=== PATIENT | female | born 1935 | race Hispanic/Latino ===

== ENCOUNTER 2016-12-20 11:27 | Observation (INO) | payer MEDICARE ==
[2016-12-20 11:33] VITALS: BMI 26.5
--- NOTE | 2016-12-20 12:10 | ED PDOC ---
Arrival/HPI - General Chief Complaint: Syncope Time Seen by Provider: 12/20/16 12:07 Historian: Patient - History of Present Illness Narrative History of Present Illness (Text): 12/20/16 12:08 81 year old female who denies past medical history presents to the emergency department after two possible syncopal episodes prior to arrival. Patient states she [place] the bus stop and was not feeling well and saw "black all around" and felt lightheaded before "passing out" for a few seconds, twice in total. Friend states the patient was already sitting down and did not fall down to the ground. Patient also complained of some shortness of breath before the episodes. She states a similar episode happened about 3 years ago. Currently patient denies any pain, change in appetite, vomiting, or diarrhea. PMD: Dr. Hilario He Time/Duration: Prior to Arrival Symptom Onset: Sudden Symptom Course: Unchanged Modifying Factors (Text): None Associated Symptoms (Text): None Past Medical History - Provider Review Nursing Documentation Reviewed: Yes - Past Medical History Past Medical History: No Previous - Pulmonary Hx Bronchitis: Yes (3 yrs ago) - Musculoskeletal/Rheumatological Hx Arthritis: Yes (back and knees) Hx Falls: No - Gastrointestinal Hx Gastrointestinal Disorders: Yes (gastritis) - Psychiatric Hx Depression: Yes (3 daughters alcoholics and one son in custodial) Hx Substance Use: No - Surgical History Hx Cholecystectomy: Yes (38 yrs ago) - Suicidal Assessment Feels Threatened In Home Enviroment: No Family/Social History - Physician Review Nursing Documentation Reviewed: Yes Family/Social History: Unknown Family HX Smoking Status: Never Smoked Hx Alcohol Use: No Hx Substance Use: No Hx Substance Use Treatment: No Allergies/Home Meds Allergies/Adverse Reactions: Allergies codeine Allergy (Verified 12/20/16 11:51) HEADACHE meperidine [From Demerol] Allergy (Verified 12/20/16 11:51) HEADACHE strawberry Allergy (Verified 12/20/16 11:51) RASH [place] Allergy (Uncoded 12/20/16 11:51) RASH flu vaccine Adverse Reaction (Mild, Uncoded 12/20/16 11:51) SHORTNESS OF BREATH Patient states she had an allergic reaction last time she received the flu vaccine. Home Medications: Home Meds Medication Instructions Recorded Confirmed No Known Home Med 10/09/12 12/20/16 Review of Systems - Physician Review All systems were reviewed & negative as marked: Yes - Review of Systems Eyes: Vision Changes ("black all around") Gastrointestinal: absent: Diarrhea, Vomiting, Appetite Changes Neurological: Other (Lightheadedness) Physical Exam - Physical Exam Narrative Physical Exam (Text): Constitutional: No acute distress. Head: Normocephalic. Atraumatic. Eyes: PERRL. ENT: Moist mucous membranes. Neck: Supple. Cardiovascular: Regular rate. Good pulses. Chest: No tenderness. Respiratory: Clear to auscultation bilaterally. GI: Soft. Nontender. Nondistended. Back: No CVA tenderness. Musculoskeletal: No tenderness or swelling of extremities. Skin: No rash. Neurologic: Alert, no focal deficit. Motor and sensory intact. Vital Signs Reviewed: Yes Vital Signs Temp Pulse Resp BP Pulse Ox 12/20/16 13:27 57 L 12 145/69 99 12/20/16 11:40 97.4 F L 57 L 18 118/75 100 Temperature: Afebrile Blood Pressure: Normal Pulse: Bradycardic Respiratory Rate: Normal Appearance: Positive for: Well-Appearing, Non-Toxic, Comfortable Pain Distress: None Mental Status: Positive for: Alert and Oriented X 3 Finger Stick Blood Glucose: 115 Medical Decision Making ED Course and Treatment: Impression: 81 year old female who denies past medical history presents to the emergency department after two possible syncopal episodes prior to arrival. Differential Diagnosis included but are not limited to: Vasovagal syncope vs dehydration vs arrhythmia Plan: -- Chest X-ray -- Labs -- Reassess and disposition Prior Visits: Notes and results from previous visits were reviewed. Patient last seen in the ED on 10/09/12 for syncope and admitted for syncope. Progress Notes: Chest X-ray Railway Signal Operator: Ronaldo Arita MD IMPRESSION: No active disease EKG shows sinus rhythm at 58 BPM, no ST/T wave changes, interpreted by me. CT Head Railway Signal Operator: Ronaldo Arita MD IMPRESSION: No acute findings. 12/20/16 13:20 Although patient described her symptoms prior to syncope as lightheadedness, she then began saying that it is more of an unsteadiness when her symptoms were reproducible during the taking of orthostatic vital signs. Due to this change, I activated CODE STROKE as this is a possible neurological deficit as opposed to the prior symptom of lightheadedness. Patient with ataxia on FTN with R arm. Otherwise, HTS and LUCAS normal. Unable to stand without support and much worsening balance with eyes closed. I discussed the case with Dr. Abraham who recommends against tPA and suggests that this may be vertebrobasilar insufficiency. 12/20/16 14:44 Dr. He accepts patient to his service with Dr. Abraham on consult. - Lab Interpretations Lab Results: 12/20/16 11:40 12/20/16 11:40 Lab Results 12/20/16 11:40: WBC 5.9 D, RBC 4.58, Hgb 12.9, Hct 38.5, MCV 84.1, MCH 28.2, MCHC 33.5, RDW 14.2, Plt Count 293, MPV 9.9, Gran % 56.4, Lymph % (Auto) 34.2, Nicholas % (Auto) 7.9 H, Eos % (Auto) 0.7 L, Baso % (Auto) 0.8, Gran # 3.35, Lymph # 2.0, Nicholas # 0.5, Eos # 0.0, Baso # 0.05 12/20/16 11:40: Sodium 136, Potassium 4.1, Chloride 102, Carbon Dioxide 27, Anion Gap 11, BUN 16, Creatinine 1.0, Est GFR ( Amer) > 60, Est GFR (Non- Af Amer) 53, Random Glucose 118 H, Calcium 9.3, Total Bilirubin 0.4, AST 26, ALT 27, Alkaline Phosphatase 78, Total Creatine Kinase 69, Troponin I < 0.01, NT -Pro-B Natriuret Pep 463 H, Total Protein 7.2, Albumin 4.1, Globulin 3.1, Albumin/Globulin Ratio 1.3 - RAD Interpretation Radiology Orders: 12/20/16 12:08 CHEST PORTABLE [RAD] Stat 12/20/16 13:21 HEAD W/O (CODE STROKE) [CT] Stat Bindery Technician: Radiologist - EKG Interpretation Interpreted by ED Physician: Yes Type: 12 lead EKG - Medication Orders Current Medication Orders: Discontinued Medications Aspirin (Aspirin) 325 mg PO STAT STA Stop: 12/20/16 14:41 NIHSS Scale ([place]) Time Performed: 13:20 - How Severe is the Stoke Baseline Level of Consciousness: 0=Alert LOC to Questions: 0=Both comments correct LOC to commands: 0=Obeys both correctly Best Gaze: 0=Normal Visual: 0=No visual loss Facial: 0=Normal Motor Arm - Left: 0=No drift Motor Arm - Right: 0=No drift Motor Leg - Left: 0=No drift Motor Leg - Right: 0=No drift Limb Ataxia: 1=Present Upper or Lower Sensory: 0=Normal Best Language: 0=No aphasia Dysarthia: 0=Normal articulation Extinction & Inattention (Neglect): 0=Normal, no object Score: 1 Risk Level: Minor Stroke Risk rTPA Inclusion/Exclusion - Refusal of Treatment Patient Refused Treatment: No - Inclusion Criteria for Altepase Patient is 18 years or Older: Yes The Clinical Diagnosis of Ischemic Stroke That is Causing a Potentially Disabling Neurological Deficit: No Time of Onset is Well Established to be Less Than 270 Minute Before Treatment Would Begin: Yes Risk/Benefit Discussed With Patient/Family Member Present: Yes - Warning to TPA With Conditions Condition: Age Greater Than 75 years - Scribe Statement The provider has reviewed the documentation as recorded by the Patricio Dawkins Provider Scribe Attestation: All medical record entries made by the Patricio were at my direction and personally dictated by me. I have reviewed the chart and agree that the record accurately reflects my personal performance of the history, physical exam, medical decision making, and the department course for this patient. I have also personally directed, reviewed, and agree with the discharge instructions and disposition. Disposition/Present on Arrival - Present on Arrival Any Indicators Present on Arrival: No History of DVT/PE: No History of Uncontrolled Diabetes: No Urinary Catheter: No History of Decub. Ulcer: No History Surgical Site Infection Following: None - Disposition Have Diagnosis and Disposition been Completed?: Yes Diagnosis: Ataxia, Decreased ambulation status, Syncope Disposition: HOSPITALIZED Disposition Time: 14:05 Patient Plan: Admission, Telemetry Condition: GUARDED Referrals: Hilario He MD [Primary Care Provider] - Follow up with primary
[2016-12-20 12:21] LABS: ADD MANUAL DIFF? NO
[2016-12-20 12:25] LABS: BASO # 0.05 K/mm3 (0.0-2.0); BASO % 0.8 % (0.0-3.0); EOS % 0.7 % (1.5-5.0); GRAN # 3.35 (1.4-6.5); GRAN % 56.4 % (50.0-68.0); HEMATOCRIT 38.5 % (36.0-48.0); LYMPH % 34.2 % (22.0-35.0); MEAN CELL VOLUME 84.1 fL (80.0-105.0); MEAN CORPUSCULAR HEMOGLOBIN 28.2 pg (25.0-35.0); MEAN CORPUSCULAR HGB CONC 33.5 g/dl (31.0-37.0); MEAN PLATELET VOLUME 9.9 fl (7.0-11.0); MONO # 0.5 (0.1-0.6); MONO % 7.9 % (1.0-6.0); PLATELET COUNT 293 10^3/uL (120.0-450.0); RED CELL DISTRIBUTION WIDTH 14.2 % (11.5-14.5); WHITE BLOOD COUNT 5.9 10^3/ul (4.5-11.0)
--- NOTE | 2016-12-20 12:35 | RAD ---
HISTORY: syncope COMPARISON: 06/17/2014 FINDINGS: LUNGS: No active pulmonary disease. PLEURA: No significant pleural effusion identified, no pneumothorax apparent. CARDIOVASCULAR: Normal. OSSEOUS STRUCTURES: No significant abnormalities. VISUALIZED UPPER ABDOMEN: Normal. OTHER FINDINGS: None. IMPRESSION: No active disease.
[2016-12-20 12:36] LABS: ALB/GLOB RATIO 1.3 (1.1-1.8); ALKALINE PHOSPHATASE 78 U/L (38-133); ALT/SGPT 27 U/L (7-56); AST/SGOT 26 U/L (15-39); BILIRUBIN,TOTAL 0.4 mg/dL (0.2-1.3); BLOOD UREA NITROGEN 16 mg/dL (7-21); CALCIUM 9.3 mg/dL (8.4-10.5); CARBON DIOXIDE 27 mmol/L (21-33); CHLORIDE 102 mmol/L (98-107); GFR AFRICAN-AMERICAN > 60; GLUCOSE,RANDOM 118 mg/dL (70-110); POTASSIUM 4.1 mmol/L (3.6-5.0); SODIUM 136 mmol/L (132-148); TOTAL PROTEIN 7.2 g/dL (5.8-8.3)
[2016-12-20 12:51] LABS: TROPONIN I < 0.01 ng/mL
--- NOTE | 2016-12-20 14:06 | CT ---
PROCEDURE: CT HEAD WITHOUT CONTRAST. HISTORY: unsteadiness COMPARISON: 10/09/2012 TECHNIQUE: Axial computed tomography images were obtained through the head/brain without intravenous contrast. Radiation dose: Total exam DLP = 689 mGy-cm. This CT exam was performed using one or more of the following dose reduction techniques: Automated exposure control, adjustment of the mA and/or kV according to patient size, and/or use of iterative reconstruction technique. FINDINGS: HEMORRHAGE: No intracranial hemorrhage. BRAIN: No mass effect or edema. Chronic microvascular changes are seen in the periventricular white matter. There is mild atrophy. There are no acute changes VENTRICLES: Unremarkable. No hydrocephalus. CALVARIUM: Unremarkable. PARANASAL SINUSES: Unremarkable as visualized. No significant inflammatory changes. MASTOID AIR CELLS: Unremarkable as visualized. No inflammatory changes. OTHER FINDINGS: None. IMPRESSION: No acute findings
--- NOTE | 2016-12-20 15:14 | CARD ---
APPROVED REPORT EKG Measurement Heart [id number] <Conclusion> Sinus bradycardia Otherwise normal ECG
--- NOTE | 2016-12-20 18:27 | CON ---
DATE: 12/20/2016 CHIEF COMPLAINT: Syncope. HISTORY OF PRESENT ILLNESS: This is a 81-year-old woman with a past medical history of bronchitis, g astritis, depression in the past, with a history of cholecystectomy and arthritis who is otherwise ac tive for her age and does Wing, was at [employer] when she was getting her bags and was waiting at the bus stand, she did not feel well, felt like generally weak and lightheaded and felt like she was goi ng to pass out, she saw black all around and had passed out twice for a few seconds. No seizure-like activity. She said she did not eat anything all morning and felt lightheaded, but no vertigo, no sp inning sensation of the room. Currently, at bedside, she is able to walk steady and there is no kimberley r or focal weakness of the extremities. Her electrolytes were unremarkable. She had some mild short ness of breath, otherwise currently no further syncopal episodes. I have ordered a carotid Doppler, a CAT scan showed no acute intracranial abnormality. There is some mild atrophy. PAST MEDICAL HISTORY: History of depression, history of cholecystectomy, history of arthritis. REVIEW OF SYSTEMS: A 14-point review of systems is negative except for the HPI. SOCIAL HISTORY: No illicit drug use, smoking or ETOH use. ALLERGIES: CODEINE, MEPERIDINE, STRAWBERRY, FLU VACCINE. FAMILY HISTORY: Noncontributory. CURRENT MEDICATIONS: Reviewed via nurse reconciliation sheet. PHYSICAL EXAMINATION: VITAL SIGNS: Temperature 97.4, pulse rate 60, blood pressure 157/81, respiratory rate of 18, oxygen saturation 99% on room air. GENERAL: The patient is sitting up in bed in no acute distress. HEENT: Atraumatic, normocephalic. PERRLA. Extraocular muscles intact. NECK: Supple, no JVD, no adenopathy noted. LUNGS: Clear to auscultation. No adventitious sounds. HEART: S1, S2, normal rate and rhythm. No murmurs, rubs, or gallops. ABDOMEN: Soft, nontender and nondistended. Bowel sounds are present. EXTREMITIES: No clubbing, no cyanosis. Peripheral pulses 2+ felt bilaterally. NEUROLOGIC: The patient is alert, oriented to person, place, month and year. Speech fluent without any errors. Cranial nerves II through XII are intact. MOTOR: Moves all extremities equally. Strength is 5/5 in both upper and lower extremities, no prona tor drift seen. SENSORY: Light touch, pinprick, proprioception, and vibrations intact. DTRs 2+ throughout and 1 at the ankles. COORDINATION: [id number] intact. GAIT: Slightly wide based, but Romberg is negative and she was able walk to the bathroom. LABORATORY DATA: Sodium 136, potassium 4.1, chloride of 102, carbon dioxide 27, BUN of 16, creatinin e of 1. Random glucose of 118. ASSESSMENT AND PLAN: This is a 81-year-old woman with history of arthritis, cholecystectomy, history of depression who had a syncopal episode today while at the bus stand for a few seconds. She did no t eat much food today or breakfast and also did not hydrate at all throughout the day. Her vital sig ns were stable. There is no focal weakness on extremities. She had a gait imbalance after a syncopa l event. There is a possibility her transient symptoms could be slightly vasovagal versus vertebroba silar insufficiency. Currently, her neuro exam is nonfocal. AT THIS TIME, RECOMMEND: 1. Carotid Doppler to assess for carotid disease. 2. Get orthostatic vital signs. 3. Keep her on aspirin 81 mg p.o. daily for stroke prevention. 4. Continue with current present medical management. She is clinically stable from my standpoint. Brandon Abraham MD cc: [id number] TT: 12/20/2016 18:26:43 Confirmation # [id number] Dictation # [id number] nannette
[2016-12-20] MEDS ORDERED: Pneumococcal 23-Valent Vaccine IM ONE (21:53)
[2016-12-21 00:56] LABS: URINE BILIRUBIN NEGATIVE (NEGATIVE); URINE BLOOD TRACE-LYSED (NEGATIVE); URINE GLUCOSE (UA) NEGATIVE (NEGATIVE); URINE KETONE NEGATIVE (NEGATIVE); URINE LEUKOCYTE ESTERASE NEGATIVE Leu/uL (NEGATIVE); URINE PROTEIN NEGATIVE mg/dL (<30 mg/dL); URINE UROBILINOGEN 0.2 E.U./dL (<1 E.U./dL)
[2016-12-21 01:05] LABS: URINE APPEARANCE CLEAR (CLEAR); URINE COLOR YELLOW (YELLOW)
[2016-12-21 01:59] LABS: URINE BACTERIA FEW (NEG); URINE EPITHELIAL CELLS 0 - 2 /hpf (0-5); URINE WBC 0 - 2 /hpf (0-6)
[2016-12-21 12:24] VITALS: O2SAT 97
--- NOTE | 2016-12-21 14:18 | PN ---
DATE: 12/21/2016 CHIEF COMPLAINT: Follow up for syncope. SUBJECTIVE: The patient seen and examined at bedside. No longer having syncopal episodes. Found to have positive orthostatic changes. No focal weakness in the extremities. No acute events overnight . PAST MEDICAL HISTORY: Depression, cholecystectomy, history of arthritis. REVIEW OF SYSTEMS: A 14-point review of systems is negative except for the HPI. SOCIAL HISTORY: No illicit drug use, smoking, or ETOH abuse. ALLERGIES: ALLERGIC TO CODEINE, MEPERIDINE, STRAWBERRIES AND FLU VACCINE. FAMILY HISTORY: Noncontributory. CURRENT MEDICATIONS: Reviewed via nurse's reconciliation sheet. PHYSICAL EXAMINATION: VITAL SIGNS: Temperature 98, pulse rate 50, blood pressure 132/ , respiratory rate 16, oxygen sa turation 97% on room air. GENERAL: The patient is sitting up in bed in no acute distress. HEENT: Atraumatic, normocephalic. PERRLA. Extraocular muscles intact. NECK: Supple, no JVD, no adenopathy noted. LUNGS: Clear to auscultation. No adventitious sounds. HEART: S1, S2, normal rate and rhythm. No murmurs, rubs, or gallops. ABDOMEN: Soft, nontender, nondistended. Bowel sounds are present. EXTREMITIES: No clubbing, no cyanosis. Peripheral pulses 2+ felt bilaterally. NEUROLOGIC: The patient is alert, oriented to person, place, month and year. Speech is fluent, with out any errors. Cranial nerves II through XII are intact. MOTOR: Moves all extremities equally. No pronator drift seen. SENSORY: Light touch, pinprick, proprioception, vibration intact. DTRs are 2+ throughout and 1 at t he ankles. COORDINATION: Tpvyid-tv-rkmj intact. GAIT: Slightly wide-based. Romberg negative. LABORATORY DATA: No new labs were done overnight. Carotid Doppler is currently pending. ASSESSMENT AND PLAN: A 81-year-old woman with history of arthritis, history of depression who had a syncopal episode while at the bus stop for a few seconds. Did not hydrate that much that day. Her sy ncopal episode was likely vasovagal with orthostatic phenomenon, which she has positive orthostatic c hanges. At this time, recommend compression stockings at home as well as hydration throughout the da y. Will defer any use of midodrine to the PMD if needed and continue with aspirin 81 mg p.o. daily f or stroke prevention. She is clinically stable from my standpoint. Will sign off. Brandon Abraham MD cc: [id number] TT: 12/21/2016 14:17:52 Confirmation # [id number] Dictation # [id number] jean
--- NOTE | 2016-12-21 14:25 | US ---
PROCEDURE: Bilateral carotid artery duplex ultrasound HISTORY: Carotid stenosis PHYSICIAN(S): Giovani Bender MD. TECHNIQUE: Duplex sonography and color-flow Doppler were used to evaluate the carotid bifurcations and limited segments of the vertebral arteries bilaterally. FINDINGS: There is mild smooth heterogeneous plaque noted at the carotid bifurcations bilaterally. The peak systolic velocity in the proximal right internal carotid artery is 64 cm/sec. This corresponds to a 20 to 39% proximal right ICA stenosis. Normal systolic velocities are noted in the proximal right external carotid artery. There is antegrade flow in the right vertebral artery. The peak systolic velocity in the proximal left internal carotid artery is 68 cm/sec. This corresponds to a 20 to 39% proximal left ICA stenosis. Normal systolic velocities are noted in the proximal left external carotid artery. There is antegrade flow in the left vertebral artery. IMPRESSION: 1. Bilateral 20-39% proximal ICA stenoses. 2. Antegrade flow in both vertebral arteries.
--- NOTE | 2016-12-21 18:53 | HP ---
HISTORY OF PRESENT ILLNESS: The patient is a 81-year-old female who is currently on telemetry in [place] [address], bed 2. She initially had a witnessed syncopal episode by the [employer] in [place]. She has no complaints. She had no symptoms prior to the syncopal episode. The syncopal episode happened while the patient was standing and walking. PAST MEDICAL HISTORY: Essentially unremarkable. ALLERGIES: CODEINE, MEPERIDINE, WHICH PRODUCE HEADACHES. FAMILY HISTORY: Unremarkable. SOCIAL HISTORY: She does not smoke as far social history and is a social drinker who drinks some win e. REVIEW OF SYSTEMS: Currently, unremarkable. The patient is asymptomatic. Denies any neurologic sym ptoms including dizziness or lightheadedness. PHYSICAL EXAMINATION: VITAL SIGNS: Pulse rate of 58, blood pressure 132/73. Her lying blood pressure was 171/71, it dropp ed to 135/68 upon sitting, and 125/73 when standing. Respiratory rate 18, O2 saturation of 97% on ro om air. HEENT: PERRLA, EOMI. There is no icterus. NECK: Supple with a full range of motion. No bruits are present. LUNGS: Clear bilaterally. HEART: Shows a regular rate and rhythm with occasional extra systole. No murmurs or rubs are apprec iated. ABDOMEN: Soft, it is nontender. Bowel sounds are normoactive. NEUROLOGIC: The patient is intact. LABORATORY VALUES: Hemoglobin and hematocrit are 12.9 and 38.5. Chemistry with the exception of a r andom glucose of 118. Chest x-ray is unremarkable. Electrocardiogram: Sinus bradycardia, otherwise normal electrocardiogram. CT of the head: No intracranial hemorrhage and the impression was no acu te findings. Dr. Abraham saw the patient who determined that this was either vasovagal versus vertebral basal insuf ficiency. IMPRESSION AT THIS TIME: Syncope. We will continue aspirin 325 mg and a carotid ultrasound is pending. Hilario He MD cc: [id number] TT: 12/21/2016 18:53:00 nannette
[2016-12-22 07:51] LABS: ADD MANUAL DIFF? NO
[2016-12-22 08:02] LABS: BASO # 0.03 K/mm3 (0.0-2.0); BASO % 0.7 % (0.0-3.0); EOS # 0.1 (0.0-0.7); EOS % 1.7 % (1.5-5.0); GRAN # 2.33 (1.4-6.5); GRAN % 57.7 % (50.0-68.0); LYMPH # 1.2 (1.2-3.4); MEAN CORPUSCULAR HEMOGLOBIN 27.4 pg (25.0-35.0); MEAN PLATELET VOLUME 9.9 fl (7.0-11.0); MONO # 0.4 (0.1-0.6); MONO % 10.9 % (1.0-6.0); PLATELET COUNT 275 10^3/uL (120.0-450.0); RED CELL DISTRIBUTION WIDTH 14.1 % (11.5-14.5)
[2016-12-22 08:13] LABS: ALB/GLOB RATIO 1.2 (1.1-1.8); ALKALINE PHOSPHATASE 65 U/L (38-133); ALT/SGPT 24 U/L (7-56); AST/SGOT 25 U/L (15-39); BILIRUBIN,TOTAL 0.6 mg/dL (0.2-1.3); BLOOD UREA NITROGEN 12 mg/dL (7-21); CALCIUM 9.1 mg/dL (8.4-10.5); CARBON DIOXIDE 28 mmol/L (21-33); CHLORIDE 100 mmol/L (98-107); CHOLESTEROL 269 mg/dL (130-200); GFR AFRICAN-AMERICAN > 60; GLUCOSE,RANDOM 82 mg/dL (70-110); POTASSIUM 3.8 mmol/L (3.6-5.0); SODIUM 135 mmol/L (132-148); TOTAL PROTEIN 7.1 g/dL (5.8-8.3)
[2016-12-22 11:17] VITALS: BP 138/80; PULSE 57; RESP 16; TEMP 97
--- NOTE | 2016-12-24 08:16 | DS ---
The patient currently in room 270, bed 2. The patient is a 81-year-old female with no significant past medical history, who had a syncopal epis ode by [facility] in [place]. She has no previous history of syncope or any neurologic disorders . REVIEW OF SYSTEMS: Currently is unremarkable. PHYSICAL EXAMINATION: VITAL SIGNS: Temperature is 97 degrees, pulse rate of 57, blood pressure 138/80, respiratory rate of 16 with 98% saturation on room air. HEENT: PERRLA, EOMI. NECK: Supple. No bruits or adenopathy are present. LUNGS: Clear to auscultation and percussion bilaterally. HEART: Regular rate and rhythm. No murmurs, rubs, or gallops. ABDOMEN: Soft. It is nontender. No organomegaly. EXTREMITIES: Show no deformities or edema. NEUROLOGIC: There are no focal motor deficits. LABORATORY DATA: WBCs are 4.0. Chemistry is unremarkable with the exception of a cholesterol of 269 with an LDL of 182. The patient was seen by Dr. Abraham who agrees with the discharge and push fluid s. She will be discharged today . CURRENT DIAGNOSES: Vasovagal syncope and hyperlipidemia. PLAN: The patient will be discharged on Lipitor 40 mg daily and ASA 81 mg p.o. daily. Hilario He MD cc: [id number] TT: 12/22/2016 23:14:48 va
== END 2016-12-22 14:04 | disposition home or self-care (01) ==
LOC: ED 11:27 → ERH 14:42 → INTOOBSV 14:42 → ERH 15:59 → 2RSO 17:00
PROVIDERS: ADMIT Internal Medicine; ATTEND Internal Medicine
DX: R55 Syncope and collapse (principal); R27.0 Ataxia, unspecified; F32.9 Major depressive disorder, single episode, unspecified; E78.5 Hyperlipidemia, unspecified; M19.90 Unspecified osteoarthritis, unspecified site; K29.70 Gastritis, unspecified, without bleeding; J40 Bronchitis, not specified as acute or chronic
CPT/HCPCS: 36415; 70450; 71010; 80053; 80061; 81001; 82550; 83880; 84484; 85025; 93005; 93880; 99285; G0378

== ENCOUNTER 2018-09-03 01:28 | Emergency (ER) | payer MEDICARE ==
[2018-09-03 01:28] VITALS: BMI 26.5
[2018-09-03] MEDS ORDERED: Sodium Chloride 0.9% 1,000 ML IV STA ×2 (01:51→06:03)
--- NOTE | 2018-09-03 02:30 | ED PDOC ---
Arrival/HPI - General Chief Complaint: Flu-like Symptoms Time Seen by Provider: 09/03/18 01:34 Historian: Patient - History of Present Illness Narrative History of Present Illness (Text): 09/03/18 01:34 Chapis Chen is a 82 year old female, with a past medical history of cholecystectomy, gastritis, and depression, who presents to the emergency department with complaints of abdominal pain. Patient states she has been experiencing diffuse abdominal cramping, described as gas-like, nausea, bilious vomiting, and diarrhea since this afternoon. Patient states she took Gas-X and Tums with minimal improvement. Patient denies any fevers, chills, headache, dizziness, cough, or any other complaint. PMD: Dr. Thad He Time/Duration: 4-6 hours (this afternoon) Symptom Onset: Gradual Quality: Cramping Activities at Onset: Light Context: Home Past Medical History - Provider Review Nursing Documentation Reviewed: Yes - Infectious Disease Hx of Infectious Diseases: None - Past Medical History Past Medical History: No Previous - Cardiac Hx Cardiac Disorders: No - Pulmonary Hx Respiratory Disorders: Yes Hx Bronchitis: Yes (3 yrs ago) - Neurological Hx Neurological Disorder: Yes Hx Dizziness: Yes (SYNCOPE 09-29-12,12-20-16) - HEENT Hx HEENT Disorder: Yes Hx Cataracts: Yes (BILATERAL SX) - Renal Hx Renal Disorder: No - Endocrine/Metabolic Hx Endocrine Disorders: No - Hematological/Oncological Hx Blood Disorders: No - Integumentary Hx Dermatological Disorder: Yes (TATTOOS) - Musculoskeletal/Rheumatological Hx Musculoskeletal Disorders: Yes Hx Arthritis: Yes (back and knees) Hx Falls: Yes - Gastrointestinal Hx Gastrointestinal Disorders: Yes (gastritis) Hx Gall Bladder Disease: Yes (CHOLECYSTECTOMY) - Genitourinary/Gynecological Hx Genitourinary Disorders: No - Psychiatric Hx Psychophysiologic Disorder: Yes Hx Depression: Yes (3 daughters alcoholics and one son in shelter) Hx Substance Use: No - Surgical History Hx Cholecystectomy: Yes (38 yrs ago) - Suicidal Assessment Feels Threatened In Home Enviroment: No Family/Social History - Physician Review Nursing Documentation Reviewed: Yes Family/Social History: Unknown Family HX Smoking Status: Never Smoked Hx Alcohol Use: Yes (SOCIALLY DRINKS WINE) Hx Substance Use: No Hx Substance Use Treatment: No Allergies/Home Meds Allergies/Adverse Reactions: Allergies codeine Allergy (Verified 12/20/16 20:14) HEADACHE meperidine [From Demerol] Allergy (Verified 12/20/16 20:14) HEADACHE strawberry Allergy (Verified 12/20/16 20:14) RASH CANTALOUPE Allergy (Uncoded 12/20/16 20:14) RASH flu vaccine Adverse Reaction (Mild, Uncoded 12/20/16 20:14) SHORTNESS OF BREATH Patient states she had an allergic reaction last time she received the flu vaccine. Home Medications: Home Meds Medication Instructions Recorded Confirmed Aspirin [Lo-Dose Aspirin EC] 81 mg PO DAILY 12/22/16 12/22/16 Lipitor 40 mg PO DAILY 12/22/16 12/22/16 Review of Systems - Physician Review All systems were reviewed & negative as marked: Yes - Review of Systems Constitutional: absent: Fevers, Night Sweats Respiratory: absent: SOB, Cough Cardiovascular: absent: Chest Pain Gastrointestinal: Abdominal Pain, Diarrhea, Nausea, Vomiting, Hematochezia Genitourinary Female: absent: Dysuria Musculoskeletal: absent: Back Pain, Neck Pain Neurological: absent: Headache, Dizziness Physical Exam Vital Signs Reviewed: Yes Temperature: Afebrile Blood Pressure: Normal Pulse: Regular Respiratory Rate: Normal Appearance: Positive for: Well-Appearing, Non-Toxic, Comfortable Pain Distress: None Mental Status: Positive for: Alert and Oriented X 3 - Systems Exam Head: Present: Atraumatic, Normocephalic Pupils: Present: PERRL Extroacular Muscles: Present: EOMI Conjunctiva: Present: Normal Mouth: No: Moist Mucous Membranes (Dry mucous membranes ) Neck: Present: Normal Range of Motion Respiratory/Chest: Present: Clear to Auscultation, Good Air Exchange. No: Respiratory Distress, Accessory Muscle Use Cardiovascular: Present: Regular Rate and Rhythm, Normal S1, S2. No: Murmurs Abdomen: No: Tenderness, Distention, Peritoneal Signs Back: Present: Normal Inspection Upper Extremity: Present: Normal Inspection. No: Cyanosis, Edema Lower Extremity: Present: Normal Inspection. No: Edema Neurological: Present: GCS=15, CN II-XII Intact, Speech Normal Skin: Present: Warm, Dry, Normal Color. No: Rashes Psychiatric: Present: Alert, Oriented x 3, Normal Insight, Normal Concentration Medical Decision Making ED Course and Treatment: 09/03/18 01:34 Impression: Patient is an 82 year old male who presents to the emergency department with nausea, vomiting, abdominal pain, and diarrhea. Plan: -- EKG -- Labs -- Chest X-Ray -- Pepcid -- IV Fluids -- Zofran -- Reassess and disposition Prior Visits: Notes and results from previous visits were reviewed. Progress Notes: Reviewed EKG, NSR at 81 bpm. Non-specific ST/T wave changes. 09/03/18 05:34 Reviewed radiology, Chest X-ray shows no acute processes. CT Abdomen and Pelvis: Bilateral basilar atelectatic pulmonary changes. Moderate sliding hiatal hernia. Cholecystectomy. Bilateral perinephric fat stranding. Moderate amount of fecal residue in the large bowels. The liver is of uniform attenuation without mass or defect. There is no intra or extrahepatic biliary ductal dilatation. The spleen is normal. The pancreas is of normal contour and attenuation characteristics. There is no evidence of adrenal mass. Both kidneys demonstrate prompt and equal nephrograms. The kidneys are normal in size, shape and configuration. There is no evidence of renal or ureteral mass. No renal or ureteral calculi are identified. There is no hydroureter or hydronephrosis. No evidence for appendicitis. There is no bowel wall thickening. No evidence for small or large bowel obstruction. There is no evidence of abdominal ascites or lymphadenopathy. There is no evidence of intrinsic or extrinsic bladder mass. There is no pelvic ascites or lymphadenopathy. Images of the lung bases show no evidence of pleural or parenchymal mass. There are no pleural effusions. The bony structures are free of lytic or blastic lesions. IMPRESSION: Bilateral basilar atelectatic pulmonary changes. Moderate sliding hiatal hernia. Cholecystectomy. Bilateral perinephric fat stranding. Moderate amount of fecal residue in the large bowels. No evidence of acute abdominal or pelvic pathology. Electronically signed on Sep 03, 2018 5:00:53 AM EST by: Nic Lin M.D., Certified by ABR, MSK, Neuroradiology 09/03/18 05:[address] Thad He, who is aware and agrees with plan. Accepts pt in to his service. Pt will go to [facility] observation fro gastroenteritis, intractable vomiting, and leukocytosis. - Lab Interpretations I have reviewed the lab results: Yes - RAD Interpretation Radiology Orders: 09/03/18 01:49 CHEST PORTABLE [RAD] Stat Manager Chinese: ED Physician, Radiologist - EKG Interpretation Interpreted by ED Physician: Yes Type: 12 lead EKG - Medication Orders Current Medication Orders: Sodium Chloride (Sodium Chloride 0.9%) 1,000 mls @ 999 mls/hr IV .Q1H1M STA Stop: 09/03/18 02:51 Discontinued Medications Famotidine (Pepcid) 20 mg IVP STAT STA Stop: 09/03/18 01:52 Ondansetron HCl (Zofran Inj) 4 mg IVP ONCE ONE Stop: 09/03/18 01:52 - Scribe Statement The provider has reviewed the documentation as recorded by the Patricio guo with [place] All medical record entries made by the Scribe were at my direction and personally dictated by me. I have reviewed the chart and agree that the record accurately reflects my personal performance of the history, physical exam, medical decision making, and the department course for this patient. I have also personally directed, reviewed, and agree with the discharge instructions and disposition. Disposition/Present on Arrival - Present on Arrival Any Indicators Present on Arrival: No History of DVT/PE: No History of Uncontrolled Diabetes: No Urinary Catheter: No History of Decub. Ulcer: No History Surgical Site Infection Following: None - Disposition Have Diagnosis and Disposition been Completed?: Yes Diagnosis: Gastroenteritis, Intractable vomiting, Leukocytosis, Hypokalemia Disposition: HOSPITALIZED Disposition Time: 06:06 Condition: STABLE Referrals: Ying MORALES,Charles Georeg MD [Primary Care Provider] - Follow up with primary Forms: [employer] (Swedish)
[2018-09-03 02:33] LABS: HEMOGLOBIN 8.8 g/dL (12.0-16.0); MEAN CELL VOLUME 64.9 fl (80.0-105.0); MEAN CORPUSCULAR HEMOGLOBIN 19.3 pg (25.0-35.0); MEAN CORPUSCULAR HGB CONC 29.7 g/dl (31.0-37.0); MEAN PLATELET VOLUME 9.2 fl (7.0-11.0); RBC 4.56 10^6/uL (3.5-6.1); RED CELL DISTRIBUTION WIDTH 19.9 % (11.5-14.5); WHITE BLOOD COUNT 17.8 10^3/uL (4.5-11.0)
[2018-09-03 02:44] LABS: ALB/GLOB RATIO 1.3 (1.1-1.8)
[2018-09-03 02:59] LABS: ALBUMIN 4.2 g/dL (3.0-4.8); ALT/SGPT 10 U/L (7-56); AST/SGOT 39 U/L (14-36); BLOOD UREA NITROGEN 14 mg/dL (7-21); CALCIUM 9.5 mg/dL (8.4-10.5); GFR NON-AFRICAN AMERICAN > 60; LIPASE 49 U/L (23-300)
[2018-09-03] MEDS ORDERED: Potassium Chloride 20 mEq ER Tab PO STA (03:11)
[2018-09-03 06:58] LABS: URINE BILIRUBIN NEGATIVE (NEGATIVE); URINE BLOOD TRACE-LYSED (NEGATIVE); URINE GLUCOSE (UA) NEGATIVE (NEGATIVE); URINE LEUKOCYTE ESTERASE NEGATIVE Leu/uL (NEGATIVE); URINE PROTEIN NEGATIVE mg/dL (<30 mg/dL); URINE UROBILINOGEN 0.2 E.U./dL (<1 E.U./dL)
[2018-09-03 07:00] VITALS: O2SAT 98
[2018-09-03 07:02] LABS: URINE APPEARANCE CLEAR (CLEAR); URINE COLOR YELLOW (YELLOW)
[2018-09-03 07:04] LABS: URINE BACTERIA RARE /hpf; URINE RBC 0 - 2 /hpf (0-2)
--- NOTE | 2018-09-03 08:52 | CT ---
Date of service: 09/03/2018 PROCEDURE: CT Abdomen and Pelvis without intravenous contrast HISTORY: pain COMPARISON: None. TECHNIQUE: Without contrast.. Contrast dose: Radiation dose: Total exam DLP = 582.4 mGy-cm. This CT exam was performed using one or more of the following dose reduction techniques: Automated exposure control, adjustment of the mA and/or kV according to patient size, and/or use of iterative reconstruction technique. FINDINGS: LOWER THORAX: Unremarkable. LIVER: Unremarkable. No gross lesion or ductal dilatation. GALLBLADDER AND BILE DUCTS: Unremarkable. PANCREAS: Unremarkable. No gross lesion or ductal dilatation. SPLEEN: Unremarkable. ADRENALS: Unremarkable. No mass. KIDNEYS AND URETERS: Unremarkable. No hydronephrosis. No solid mass. Mild perinephric stranding, probably chronic VASCULATURE: Unremarkable. No aortic aneurysm. Minimal aortic calcification BOWEL: Unremarkable. No obstruction. No gross mural thickening. Mild constipation APPENDIX: Unremarkable. Normal appendix. PERITONEUM: Unremarkable. No free fluid. No free air. LYMPH NODES: Unremarkable. No enlarged lymph nodes. BLADDER: Unremarkable. REPRODUCTIVE: Unremarkable. BONES: No acute fracture. OTHER FINDINGS: The report concurs with the preliminary [facility] report IMPRESSION: No acute intra-abdominal findings
--- NOTE | 2018-09-03 09:14 | RAD ---
Date of service: 09/03/2018 HISTORY: Abdominal pain/vomiting COMPARISON: 12/20/2016. FINDINGS: LUNGS: The lungs are well inflated and clear. PLEURA: No pleural effusions or pneumothorax. CARDIOVASCULAR: The heart is normal in size. No aortic atherosclerotic calcifications present. OSSEOUS STRUCTURES: Within normal limits for the patient's age. VISUALIZED UPPER ABDOMEN: Normal. OTHER FINDINGS: None. IMPRESSION: No active pulmonary disease.
[2018-09-03 10:21] VITALS: BP 105/55; PULSE 78; RESP 17; TEMP 98.4
--- NOTE | 2018-09-03 12:32 | HP ---
HISTORY OF PRESENT ILLNESS: The patient is an 82-year-old woman with no significant past medical history who presented for evaluation of a 4 hour history of nausea, vomiting and diarrhea. The patient was in her usual state of health until the day of presentation to the ED when she developed a sudden onset of lower abdominal discomfort associated with cramping and bloating. Shortly thereafter she developed nonbloody, bilious vomiting and profuse watery diarrhea. The patient took Gas-X and Tums with minimal improvement in her symptoms. Due to her persistent nausea and an episode of near syncope, she opted for ED evaluation. In the ED, she was found to be afebrile and hemodynamically stable. CT imaging of the abdomen demonstrated no acute pathology. She was started on IV fluid hydration and Zofran. Due to her intractable nausea, she was admitted for observation and supportive care of suspected viral gastroenteritis PAST MEDICAL HISTORY: Anxiety disorder, hyperlipidemia and insomnia. PAST SURGICAL HISTORY: Cholecystectomy and bilateral cataract removal. ALLERGIES: Codeine. MEDICATIONS: Xanax 0.5 mg p.o. b.i.d. as needed for anxiety and Lipitor 40 mg p.o. daily. FAMILY HISTORY: Noncontributory. SOCIAL HISTORY: The patient denies any toxic habits. REVIEW OF SYSTEMS: A 12-point review of systems is negative except as per HPI. PHYSICAL EXAMINATION VITAL SIGNS: Temperature 98, pulse 73, blood pressure 105/54, respiratory rate 18, oxygen saturation 98% on room air. GENERAL: No apparent distress. HEENT: PERRL. EOMI. No scleral icterus. Mild conjunctival pallor is noted. Mucous membranes are dry. NECK: Supple with full range of motion. No JVD, no bruits. LUNGS: Clear to auscultation. CARDIOVASCULAR: Regular rate and rhythm. Normal S1 and S2. No murmurs. ABDOMEN: Hyperactive bowel sounds, soft, tender to palpation to lower abdomen with voluntary guarding. No rigidity. No tympany. EXTREMITIES: No edema. NEUROLOGIC: Awake, alert and oriented x 3. No focal motor deficits. LABORATORY DATA: WBC 17.8, hemoglobin 8.8, hematocrit 29, platelets 386. Sodium 137, potassium 3.1, chloride 99, bicarb 26, BUN 14, creatinine 0.8, glucose 127. IMAGING STUDIES: 1. CT of the abdomen and pelvis without contrast demonstrated no acute pathology. ASSESSMENT: The patient is an 82-year-old woman with a past medical history of hyperlipidemia and anxiety disorder who presented with a several hour history of nausea, vomiting and diarrhea. PLAN 1. Viral gastroenteritis. The patient reports resolution of her symptoms s/p IV fluid hydration and Zofran. She is requesting discharge to home. She has been advised to remain hydrated and eat bland foods until GI discomfort resolves. She will be discharged home on Zofran 4 mg p.o. q. 6 hours. p.r.n. nausea. 2. Anxiety disorder. The patient to resume Xanax 0.5 mg p.o. b.i.d. p.r.n. anxiety. 3. Hyperlipidemia. The patient to resume Lipitor 40 mg p.o. daily. 4. Insomnia. The patient to resume Ambien 5 mg p.o. at bedtime. CODE STATUS: Full code. Charles He MD MTDD
--- NOTE | 2018-09-03 18:59 | CARD ---
APPROVED REPORT Date of service: 09/03/2018 EKG Measurement Heart [id number] <Conclusion> Normal sinus rhythm ST & T wave abnormality, consider inferolateral ischemia Abnormal ECG
--- NOTE | 2018-09-05 10:16 | DS ---
ADMITTING DIAGNOSIS: Viral gastroenteritis. DISCHARGE DIAGNOSIS: Viral gastroenteritis. SECONDARY DIAGNOSES: Anxiety disorder, hyperlipidemia and insomnia. CONSULTATIONS: None. IMAGING STUDIES: 1. Chest x-ray demonstrated no active disease. 2. CT of the abdomen and pelvis without contrast demonstrated no acute intra- abdominal pathology. PROCEDURES: None. HISTORY OF PRESENT ILLNESS: The patient is an 82-year-old woman with no significant past medical history who presented for evaluation of a 4 hour history of nausea, vomiting and diarrhea. She was in her usual state of health until the day of presentation to the ED when she developed a sudden onset of lower abdominal discomfort associated with cramping and bloating. Shortly thereafter she developed nonbloody, bilious vomiting and profuse watery diarrhea. She took Gas-X and Tums with minimal improvement in her symptoms. Due to her persistent nausea and an episode of near syncope, she opted for ED evaluation. In the ED she was afebrile and hemodynamically stable. CT imaging of the abdomen demonstrated no acute pathology. She was started on IV fluid hydration and Zofran and, due to her intractable nausea, she was admitted for supportive care of viral gastroenteritis. HOSPITAL COURSE: While in the ED awaiting a bed on the [facility] floor, she was maintained on IV fluid hydration and Zofran. By the time of examination she reported resolution of her symptoms and had not had an episode of vomiting for several hours. Given her clinical improvement, she requested to be discharged home and was deemed stable for discharge to home. CONDITION: Good, improved. DISPOSITION: Home. DISCHARGE MEDICATIONS: Xanax 0.5 mg p.o. b.i.d. and Lipitor 40 mg p.o. daily. DISCHARGE INSTRUCTIONS: The patient was counseled on an appropriate diet given her recent gastroenteritis and was advised to remain adequately hydrated. FOLLOWUP: The patient to follow up with her PMD within 2 weeks of discharge. Charles He MD VON
== END 2018-09-03 10:38 | disposition home or self-care (01) ==
LOC: ED 01:28 → UNDOADMOB 06:00 → ERH 06:00
DX: A08.4 Viral intestinal infection, unspecified (principal)
CPT/HCPCS: 71045; 74176; 80053; 81001; 83690; 85027; 87040; 87086; 87804; 93005; 96374; 96375; 96376; 99285; J2405; J7030

== ENCOUNTER 2018-10-12 07:21 | Emergency (ER) | payer MEDICARE ==
[2018-10-12 07:52] VITALS: BMI 24.6
[2018-10-12 07:58] VITALS: RESP 16; TEMP 97.9
[2018-10-12] MEDS ORDERED: Pantoprazole 40 MG in Sodium Chloride 0.9% 100 ML IV STA (08:19)
[2018-10-12] MEDS ORDERED: Sodium Chloride 0.9% 500 ML IV ONE (08:20)
--- NOTE | 2018-10-12 08:20 | ED PDOC ---
Arrival/HPI - General Chief Complaint: Abdominal Pain Time Seen by Provider: 10/12/18 07:47 Historian: Patient - History of Present Illness Narrative History of Present Illness (Text): 10/12/18 08:17 82 year old f with a pmh of cholecystectomy, gastritis, and depression presents to the emergency department complaining of intermittent abd pain w/ difficulty eating and nausea x5 weeks. Patient recalls that this abd pain feels similiar to the same abd pain she presented to the emergency department 5 weeks ago with. She received a negative abdominal CAT scan during the visit. Patient endorses living alone. Patient denies any fevers, chills, headache, dizziness, chest pain, shortness of breath, dyspnea on exertion, cough, vomiting, diarrhea, back pain, neck pain, or any other complaint. Time/Duration: > month Symptom Onset: Gradual Symptom Course: Intermittent Activities at Onset: Light Context: Home Associated Symptoms (Text): 10/12/18 09:28 History of appendectomy and cholecystectomy. Patient was admitted to the hospital approximately 5 weeks ago for the complaints that she is having today. She complains of continued intermittent generalized abdominal pain. There is been some nausea but no further vomiting or diarrhea. She states that she has difficulty eating because of the discomfort. No weight loss. No genitourinary symptoms. No chest pain palpitations or dyspnea. No fever or chills. She does not appear to be in any distress. Past Medical History - Provider Review Nursing Documentation Reviewed: Yes - Infectious Disease Hx of Infectious Diseases: None - Past Medical History Past Medical History: No Previous - Cardiac Hx Cardiac Disorders: No - Pulmonary Hx Respiratory Disorders: Yes Hx Bronchitis: Yes (3 yrs ago) - Neurological Hx Neurological Disorder: Yes Hx Dizziness: Yes (SYNCOPE 09-29-12,12-20-16) - HEENT Hx HEENT Disorder: Yes Hx Cataracts: Yes (BILATERAL SX) - Renal Hx Renal Disorder: No - Endocrine/Metabolic Hx Endocrine Disorders: No - Hematological/Oncological Hx Blood Disorders: No - Integumentary Hx Dermatological Disorder: Yes (TATTOOS) - Musculoskeletal/Rheumatological Hx Musculoskeletal Disorders: Yes Hx Arthritis: Yes (back and knees) Hx Falls: Yes - Gastrointestinal Hx Gastrointestinal Disorders: Yes (gastritis) Hx Gall Bladder Disease: Yes (CHOLECYSTECTOMY) - Genitourinary/Gynecological Hx Genitourinary Disorders: No - Psychiatric Hx Psychophysiologic Disorder: Yes Hx Depression: Yes (3 daughters alcoholics and one son in correction) Hx Substance Use: No - Surgical History Hx Cholecystectomy: Yes (38 yrs ago) - Suicidal Assessment Feels Threatened In Home Enviroment: No Family/Social History - Physician Review Nursing Documentation Reviewed: Yes Family/Social History: No Known Family HX Smoking Status: Never Smoked Hx Alcohol Use: Yes (SOCIALLY DRINKS WINE) Hx Substance Use: No Hx Substance Use Treatment: No Allergies/Home Meds Allergies/Adverse Reactions: Allergies codeine Allergy (Verified 09/03/18 12:58) HEADACHE meperidine [From Demerol] Allergy (Verified 09/03/18 12:58) HEADACHE strawberry Allergy (Verified 09/03/18 12:58) RASH CANTALOUPE Allergy (Uncoded 09/03/18 12:58) RASH flu vaccine Adverse Reaction (Mild, Uncoded 09/03/18 12:58) SHORTNESS OF BREATH Patient states she had an allergic reaction last time she received the flu vaccine. Home Medications: Home Meds Medication Instructions Recorded Confirmed Aspirin [Lo-Dose Aspirin EC] 81 mg PO DAILY 12/22/16 12/22/16 Lipitor 40 mg PO DAILY 12/22/16 12/22/16 Review of Systems - Physician Review All systems were reviewed & negative as marked: Yes - Review of Systems Constitutional: absent: Fatigue, Fevers ENT: absent: Rhinorrhea Respiratory: absent: SOB, Cough Cardiovascular: absent: Chest Pain, Palpitations, Edema, NORMAN, Syncope Gastrointestinal: Abdominal Pain, Nausea, Anorexia, Food Intolerance. absent: Diarrhea, Vomiting Musculoskeletal: absent: Arthralgias, Back Pain, Myalgias Neurological: absent: Headache, Dizziness, Focal Weakness Physical Exam Vital Signs Reviewed: Yes Vital Signs Temp Pulse Resp BP Pulse Ox 10/12/18 07:57 97.9 F 77 16 116/61 99 Temperature: Afebrile Blood Pressure: Normal Pulse: Regular Respiratory Rate: Normal Appearance: Positive for: Well-Appearing, Non-Toxic Pain Distress: None Mental Status: Positive for: Alert and Oriented X 3 - Systems Exam Head: Present: Atraumatic, Normocephalic Pupils: Present: PERRL Extroacular Muscles: Present: EOMI Conjunctiva: Present: Normal Mouth: Present: Moist Mucous Membranes Pharnyx: No: ERYTHEMA, EXUDATE, TONSILS ENLARGED Neck: Present: Normal Range of Motion Respiratory/Chest: Present: Clear to Auscultation, Good Air Exchange. No: Respiratory Distress, Accessory Muscle Use Cardiovascular: Present: Regular Rate and Rhythm, Normal S1, S2. No: Murmurs Abdomen: Present: Tenderness (Plus minus generalized tenderness. No guarding and no rebound). No: Distention, Peritoneal Signs, Rebound, Guarding Back: Present: Normal Inspection Upper Extremity: Present: Normal Inspection. No: Cyanosis, Edema Lower Extremity: Present: Normal Inspection. No: Edema Neurological: Present: GCS=15, CN II-XII Intact, Speech Normal, Motor Func Grossly Intact Skin: Present: Warm, Dry, Normal Color. No: Rashes Psychiatric: Present: Alert, Oriented x 3, Normal Insight, Normal Concentration Medical Decision Making ED Course and Treatment: 10/12/18 08:22 Impression: 82 year old f presents to the emergency department complaining of intermittent abd pain w/ difficulty eating and nausea x5 weeks. Plan: --Labs --Protonix Inj --Saline IV --Zofran Inj --EKG --Chest X-ray --Abd US --UA -- Reassess and disposition Prior Visits: Notes and results from previous visits were reviewed. Progress Notes: 10/12/18 09:52 EKG shows sinus bradycardia rate approximately [address] or T wave changes. 10/12/18 10:06 Chest X-ray: No acive disease 10/12/18 11:26 Discussed in detail with Dr.A He who will see in the office now. He is aware of the ultrasound findings. He is aware of the urinalysis and we are awaiting culture and sensitivity. Patient is anemic, but at a level similar to her hemoglobin 5 weeks ago. - RAD Interpretation Radiology Orders: Ultrasound of the abdomen is read by the radiologist shows 2 masses in the left lobe of the liver. This does not correlate with CT scan of 5 weeks ago. Priming Mixture Carrier: Radiologist - PA / TYPEWRITER OPERATOR AUTOMATIC / Resident Statement MD/DO has reviewed & agrees with the documentation as recorded. - Scribe Statement The provider has reviewed the documentation as recorded by the Patricio Bojorquez All medical record entries made by the Scribe were at my direction and personally dictated by me. I have reviewed the chart and agree that the record accurately reflects my personal performance of the history, physical exam, medical decision making, and the department course for this patient. I have also personally directed, reviewed, and agree with the discharge instructions and disposition. Disposition/Present on Arrival - Present on Arrival Any Indicators Present on Arrival: No History of DVT/PE: No History of Uncontrolled Diabetes: No Urinary Catheter: No History of Decub. Ulcer: No History Surgical Site Infection Following: None - Disposition Have Diagnosis and Disposition been Completed?: Yes Diagnosis: Anemia, Urinary tract infection, Liver mass, left lobe Disposition: HOME/ ROUTINE Disposition Time: 11:28 Patient Plan: Discharge Condition: STABLE Discharge Instructions (ExitCare): Asymptomatic Bacteriuria, Normocytic Normochromic Anemia Additional Instructions: Follow-up in the office with now. He will discuss findings with you. Referrals: Ying MORALES,Charles George MD [Primary Care Provider] - Follow up with primary Forms: [employer] (Yi)
[2018-10-12 09:11] LABS: URINE BILIRUBIN NEGATIVE (NEGATIVE); URINE BLOOD NEGATIVE (NEGATIVE); URINE GLUCOSE (UA) NEGATIVE (NEGATIVE); URINE LEUKOCYTE ESTERASE MODERATE Leu/uL (NEGATIVE); URINE PROTEIN TRACE mg/dL (<30 mg/dL); URINE UROBILINOGEN 0.2 E.U./dL (<1 E.U./dL)
[2018-10-12 09:12] LABS: BASO # 0.02 K/mm3 (0.0-2.0); BASO % 0.4 % (0.0-3.0); EOS % 0.8 % (1.5-5.0); HEMOGLOBIN 8.7 g/dL (12.0-16.0); LYMPH # 0.7 (1.2-3.4); LYMPH % 13.9 % (22.0-35.0); MEAN CELL VOLUME 65.2 fl (80.0-105.0); MEAN CORPUSCULAR HEMOGLOBIN 19.2 pg (25.0-35.0); MEAN CORPUSCULAR HGB CONC 29.4 g/dl (31.0-37.0); MEAN PLATELET VOLUME 9.1 fl (7.0-11.0); MONO # 0.5 (0.1-0.6); MONO % 8.8 % (1.0-6.0); RBC 4.54 10^6/uL (3.5-6.1); RED CELL DISTRIBUTION WIDTH 21.1 % (11.5-14.5); WHITE BLOOD COUNT 5.3 10^3/uL (4.5-11.0)
[2018-10-12 09:19] LABS: INR 1.12; PARTIAL THROMBOPLASTIN TIME 34.2 Seconds (26.9-38.3); PROTHROMBIN TIME 12.7 SECONDS (9.4-12.5)
[2018-10-12 09:28] LABS: URINE APPEARANCE CLEAR (CLEAR); URINE COLOR YELLOW (YELLOW)
[2018-10-12 09:35] LABS: ALB/GLOB RATIO 1.1 (1.1-1.8); AMYLASE 73 U/L (35-125); BLOOD UREA NITROGEN 12 mg/dL (7-21); CALCIUM 9.1 mg/dL (8.4-10.5); GFR NON-AFRICAN AMERICAN > 60; LIPASE 63 U/L (23-300)
[2018-10-12 09:37] LABS: URINE BACTERIA MANY /hpf; URINE RBC 0 - 2 /hpf (0-2); URINE WBC 20 - 25 /hpf (0-6)
[2018-10-12 09:38] LABS: URINE AMORPHOUS SEDIMENT FEW /hpf
[2018-10-12 09:44] LABS: TROPONIN I < 0.01 ng/mL
[2018-10-12 09:46] LABS: ALT/SGPT 9 U/L (7-56); AST/SGOT 46 U/L (14-36)
--- NOTE | 2018-10-12 10:04 | RAD ---
Date of service: 10/12/2018 HISTORY: ap COMPARISON: 09/03/2018 FINDINGS: LUNGS: No active pulmonary disease. PLEURA: No significant pleural effusion identified, no pneumothorax apparent. CARDIOVASCULAR: No aortic atherosclerotic calcification present. Normal cardiac size. No pulmonary vascular congestion. OSSEOUS STRUCTURES: No significant abnormalities. VISUALIZED UPPER ABDOMEN: Normal. OTHER FINDINGS: None. IMPRESSION: No active disease.
--- NOTE | 2018-10-12 11:30 | US ---
Date of service: 10/12/2018 HISTORY: Abdominal pain COMPARISON: Comparison made with CT scan of the abdomen pelvis 09/03/2018. TECHNIQUE: Sonographic evaluation of the abdomen. FINDINGS: LIVER: Liver measures approximately 13.8 cm in CC dimension. Are 2 echogenic lesions in the left lobe of the liver the largest measuring 5.1 x 4.2 x 6.1 cm and the 2nd measuring approximately 4.5 x 4.6 x 4.8 cm. Findings may represent metastatic deposits. Follow-up postcontrast CT scan of the abdomen recommended for further evaluation. GALLBLADDER: Cholecystectomy COMMON BILE DUCT: Measures 6.1 mm. No stones. No dilatation. PANCREAS: Unremarkable as visualized. No mass. No ductal dilatation. RIGHT KIDNEY: Measures 9.9 x 4.3 x 6.8cm. Normal echogenicity. No calculus, mass, or hydronephrosis. LEFT KIDNEY: Measures 10.1 x 4.4 x 6.2cm. Normal echogenicity. No calculus, mass, or hydronephrosis. SPLEEN: Normal in size and contour. No mass. AORTA: No aneurysmal dilatation. IVC: Unremarkable. OTHER FINDINGS: None. IMPRESSION: There are 2 echogenic masses in the left lobe liver possibly representing metastatic deposits. Follow-up post-contrast CT scan of the abdomen recommended for further evaluation Apparent cholecystectomy.
[2018-10-12 12:15] VITALS: BP 161/95; PULSE 61; O2SAT 98
--- NOTE | 2018-10-12 20:24 | CARD ---
APPROVED REPORT Date of service: 10/12/2018 EKG Measurement Heart [id number] <Conclusion> Sinus bradycardia Nonspecific ST abnormality Abnormal ECG
== END 2018-10-12 11:45 | disposition home or self-care (01) ==
LOC: ED 07:21
DX: R16.0 Hepatomegaly, not elsewhere classified (principal); N39.0 Urinary tract infection, site not specified; D64.9 Anemia, unspecified; Z90.49 Acquired absence of other specified parts of digestive tract
CPT/HCPCS: 71045; 76700; 80053; 81001; 82150; 82550; 83615; 83690; 84484; 85025; 85610; 85730; 87086; 93005; 96374; 96375; 99283; C9113; J2405; J7040

== ENCOUNTER 2018-10-14 11:23 | Outpatient (CLI) | payer MEDICARE | END 2018-10-14 11:24 | disposition home or self-care (01) | LOC: RAD 11:24 ==

== ENCOUNTER 2018-10-21 17:29 | Inpatient (IN) | payer MEDICARE ==
[2018-10-21] MEDS ORDERED: Sodium Chloride 0.9% 500 ML IV STA (18:10)
--- NOTE | 2018-10-21 18:20 | ED PDOC ---
Arrival/HPI - General Chief Complaint: Abdominal Pain Time Seen by Provider: 10/21/18 17:33 Historian: Patient - History of Present Illness Narrative History of Present Illness (Text): 10/21/18 18:17 82-year-old female presents today with nausea vomiting and crampy abdominal pain. Patient states she has been having on and off abdominal pain for the past 2 months. Patient states last week she was diagnosed with lesions on the liver for which she was advised that there was a possibility of liver cancer. Patient states yesterday she was feeling okay and states she was not having any abdominal pain but today around noon the crampy abdominal pain returned with nausea. Patient states she has not vomited but feels as if she is going to vomit. Complaining of epigastric pain and crampy lower abdominal pain that radiates to the right side of the abdomen. No fevers or chills. Patient denies back pain. No dizziness or weakness. Patient states she has been having episodes of syncope/near syncope at home. Past Medical History - Provider Review Nursing Documentation Reviewed: Yes - Travel History Have you recently traveled outside [place] w/in the past 3 mons?: No - Infectious Disease Hx of Infectious Diseases: None - Reproductive Menopause: Yes - Past Medical History Past Medical History: No Previous - Cardiac Hx Cardiac Disorders: No - Pulmonary Hx Respiratory Disorders: Yes Hx Bronchitis: Yes (3 yrs ago) - Neurological Hx Neurological Disorder: Yes Hx Dizziness: Yes (SYNCOPE 09-29-12,12-20-16) - HEENT Hx HEENT Disorder: Yes Hx Cataracts: Yes (BILATERAL SX) - Renal Hx Renal Disorder: No - Endocrine/Metabolic Hx Endocrine Disorders: No - Hematological/Oncological Hx Blood Disorders: No - Integumentary Hx Dermatological Disorder: Yes (TATTOOS) - Musculoskeletal/Rheumatological Hx Musculoskeletal Disorders: Yes Hx Arthritis: Yes (back and knees) Hx Falls: Yes - Gastrointestinal Hx Gastrointestinal Disorders: Yes (gastritis) Hx Gall Bladder Disease: Yes (CHOLECYSTECTOMY) - Genitourinary/Gynecological Hx Genitourinary Disorders: No - Psychiatric Hx Psychophysiologic Disorder: Yes Hx Depression: Yes (3 daughters alcoholics and one son in fdc) Hx Substance Use: No - Surgical History Hx Cholecystectomy: Yes (38 yrs ago) - Anesthesia Hx Anesthesia: Yes Hx Anesthesia Reactions: No Hx Malignant Hyperthermia: No - Suicidal Assessment Feels Threatened In Home Enviroment: No Family/Social History - Physician Review Nursing Documentation Reviewed: Yes Family/Social History: Unknown Family HX Smoking Status: Never Smoked Hx Alcohol Use: Yes (SOCIALLY DRINKS WINE) Hx Substance Use: No Hx Substance Use Treatment: No Allergies/Home Meds Allergies/Adverse Reactions: Allergies codeine Allergy (Verified 09/03/18 12:58) HEADACHE meperidine [From Demerol] Allergy (Verified 09/03/18 12:58) HEADACHE strawberry Allergy (Verified 09/03/18 12:58) RASH [place]PE Allergy (Uncoded 09/03/18 12:58) RASH flu vaccine Adverse Reaction (Mild, Uncoded 09/03/18 12:58) SHORTNESS OF BREATH Patient states she had an allergic reaction last time she received the flu vaccine. Home Medications: Home Meds Medication Instructions Recorded Confirmed Aspirin [Lo-Dose Aspirin EC] 81 mg PO DAILY 12/22/16 10/21/18 Lipitor 40 mg PO DAILY 12/22/16 10/21/18 Review of Systems - Review of Systems Constitutional: absent: Fatigue, Fevers Respiratory: absent: SOB, Cough Cardiovascular: absent: Chest Pain, Palpitations Gastrointestinal: Abdominal Pain, Diarrhea, Nausea. absent: Constipation, Vomiting Genitourinary Female: absent: Dysuria, Frequency, Hematuria Musculoskeletal: absent: Arthralgias, Back Pain, Neck Pain Skin: absent: Rash, Pruritis Neurological: Other (near syncopal episodes). absent: Headache, Dizziness Psychiatric: absent: Anxiety, Depression Physical Exam Vital Signs Reviewed: Yes Vital Signs Temp Pulse Resp BP Pulse Ox 10/21/18 17:30 98.3 F 75 18 159/86 H 100 Temperature: Afebrile Blood Pressure: Hypertensive Pulse: Regular Respiratory Rate: Normal Appearance: Positive for: Well-Appearing, Non-Toxic, Comfortable Pain Distress: None Mental Status: Positive for: Alert and Oriented X 3 - Systems Exam Head: Present: Atraumatic Mouth: Present: Moist Mucous Membranes Neck: Present: Normal Range of Motion Respiratory/Chest: Present: Clear to Auscultation, Good Air Exchange. No: Respiratory Distress, Accessory Muscle Use Cardiovascular: Present: Regular Rate and Rhythm, Normal S1, S2. No: Murmurs, Tachycardic Abdomen: Present: Tenderness (diffuse abd tenderness), Guarding. No: Distention, Peritoneal Signs, Rebound Back: Present: Normal Inspection. No: CVA Tenderness, Midline Tenderness, Paraspinal Tenderness Upper Extremity: Present: Normal Inspection. No: Cyanosis, Edema Lower Extremity: Present: Normal Inspection. No: Edema Neurological: Present: GCS=15, Speech Normal Skin: Present: Warm, Dry, Normal Color. No: Rashes Psychiatric: Present: Alert, Oriented x 3 Medical Decision Making ED Course and Treatment: 10/21/18 19:03 Patient is nontoxic well appearing with stable vital signs presenting with nausea and abdominal pain CBC hgb; 8.8 CMP wnl Amylase wnl Lipase wnl Urinalysis wnl CAT scan: FINDINGS: LUNG BASES: The lung bases appear clear. No pleural effusions are seen. LIVER: An approximately 4.6 x 7.3 cm zone of decreased attenuation with lobulated irregular margins is seen in the superior left hepatic lobe. This finding is thought compatible with hepatic neoplasm. GALLBLADDER AND BILE DUCTS: The gallbladder is not identified compatible with prior cholecystectomy. No biliary ductal dilatation is evident. PANCREAS: Unremarkable. SPLEEN: Unremarkable. ADRENAL GLANDS: Unremarkable. KIDNEYS, URETERS, AND BLADDER: The kidneys appear within normal limits. There is no hydronephrosis or hydroureter. No urinary calculi are seen. The urinary bladder appeared normal in size and configuration. STOMACH AND BOWEL: A moderate sized hiatal hernia is again noted. An approximately 3.3 x 2.6 cm annular neoplasm is seen involving the distal transverse colon. Without the advantage of IV contrast agent; this finding is barely perceptible on the previous examination. It is identified in axial series 3, images 117-118. Liquid stool is noted in the ascending and transverse colon. No evidence of bowel obstruction. Fluid in the lumen of the ileal small intestinal tract could be compatible with ileitis. APPENDIX: No evidence of acute appendicitis on CT examination. PERITONEUM: No free fluid. No free air. LYMPH NODES: No lymphadenopathy is evident. REPRODUCTIVE: Unremarkable as visualized. VASCULATURE: No evidence of abdominal aortic aneurysm. Minor atherosclerotic vascular plaquing is present. BONES: No aggressive appearing osseous lesion. No acute osseous pathology evident. There is evidence of advanced degenerative disc disease at L2-3, L3-4, L4-5. IMPRESSION: 1. 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 2. 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 3. Fluid in the lumen of the ileal small intestine may indicate ileitis. 4. Moderate-sized hiatal hernia. 5. Liquid stool noted in the ascending and transverse colon. 6. Status post cholecystectomy. Electronically signed on Oct 21, 2018 11:12:08 PM EDT by: Nnamdi Ochoa M.D., HEMANTH Certified By [facility] [employer] Trained MRI and CT Specialist tylenol given for pain pt given protonix and zofran. Patient reassessment: pt is resting comfortably. no distress. Discussed all results with patient in depth case discussed with dr. He; accepts admission to remote tele. abdominal pain, anemia, hx of liver mass, near syncope will consult GI and dr. Cheney who is a hepatobiliary surgeon. All aspects of this case were discussed the attending of record. Impression: Abdominal pain, colon mass, liver mass, anemia admit remote tele Reassessment Condition: Re-examined, Improved - RAD Interpretation Radiology Orders: 10/21/18 18:10 ABD & PELVIS IV CONTRAST ONLY [CT] Stat CHEST PORTABLE [RAD] Stat - Medication Orders Current Medication Orders: Sodium Chloride (Sodium Chloride 0.9%) 500 mls @ 999 mls/hr IV .Q31M STA Stop: 10/21/18 18:40 Discontinued Medications Ondansetron HCl (Zofran Inj) 4 mg IVP STAT STA Stop: 10/21/18 18:11 Disposition/Present on Arrival - Present on Arrival Any Indicators Present on Arrival: No History of DVT/PE: No History of Uncontrolled Diabetes: No Urinary Catheter: No History of Decub. Ulcer: No History Surgical Site Infection Following: None - Disposition Have Diagnosis and Disposition been Completed?: Yes Diagnosis: Abdominal pain, Anemia, Liver mass, Near syncope, Colonic mass Disposition: HOSPITALIZED Disposition Time: 19:47 Patient Plan: Admission Patient Problems: Current Active Problems Problem Status Onset Abdominal pain Acute Anemia Acute Liver mass Acute Near syncope Acute Condition: FAIR
[2018-10-21 18:32] LABS: BASO # 0.03 K/mm3 (0.0-2.0); BASO % 0.4 % (0.0-3.0); EOS % 0.3 % (1.5-5.0); HEMOGLOBIN 8.8 g/dL (12.0-16.0); LYMPH # 0.8 (1.2-3.4); LYMPH % 11.5 % (22.0-35.0); MEAN CELL VOLUME 64.1 fl (80.0-105.0); MEAN CORPUSCULAR HEMOGLOBIN 18.7 pg (25.0-35.0); MEAN CORPUSCULAR HGB CONC 29.1 g/dl (31.0-37.0); MEAN PLATELET VOLUME 8.9 fl (7.0-11.0); MONO # 0.4 (0.1-0.6); RBC 4.71 10^6/uL (3.5-6.1); RED CELL DISTRIBUTION WIDTH 21.1 % (11.5-14.5); WHITE BLOOD COUNT 7.3 10^3/uL (4.5-11.0)
[2018-10-21 18:47] LABS: ALB/GLOB RATIO 1.1 (1.1-1.8); ALBUMIN 4.1 g/dL (3.0-4.8); ALT/SGPT 12 U/L (7-56); AMYLASE 82 U/L (35-125); AST/SGOT 35 U/L (14-36); BLOOD UREA NITROGEN 14 mg/dL (7-21); CALCIUM 9.5 mg/dL (8.4-10.5); GFR NON-AFRICAN AMERICAN > 60; LIPASE 70 U/L (23-300)
[2018-10-21 18:55] LABS: TROPONIN I < 0.01 ng/mL
[2018-10-21 18:59] LABS: PH,URINE 6.5 (4.7-8.0); URINE APPEARANCE CLEAR (CLEAR); URINE BILIRUBIN NEGATIVE (NEGATIVE); URINE BLOOD NEGATIVE (NEGATIVE); URINE COLOR YELLOW (YELLOW); URINE GLUCOSE (UA) NEGATIVE (NEGATIVE); URINE LEUKOCYTE ESTERASE NEGATIVE Leu/uL (NEGATIVE); URINE PROTEIN NEGATIVE mg/dL (<30 mg/dL); URINE UROBILINOGEN 0.2 E.U./dL (<1 E.U./dL)
[2018-10-21] MEDS ORDERED: Iohexol 350 MG/100 ML VIAL ONE (20:23)
[2018-10-22 01:10] VITALS: BMI 25.5
--- NOTE | 2018-10-22 03:31 | CP.PCM.CON ---
<Silvano Sánchez - Last Filed: 10/23/18 15:27> History of Present Illness - History of Present Illness History of Present Illness: Hepatobiliary Surgery Consult Note for Dr. Braswell 82 year old female, with no significant past medical history, presents to the emergency department with worsening diffuse abdominal pain. Patient states she has been having this diffuse, non-radiating, sharp, stabbing pain intermittently over the past 2 months but it has worsened over the last week. The pain comes in waves and has become intolerable. She has had multiple previous admissions/ED visits related to these symptoms with no clear resolution. She has not found anything to alleviate her symptoms. Patient endorses 1 episode of bilious emesis today as well as intermittent diarrhea. She occasionally has blood tinged diarrhea or dark stools, however it has not been consistent. No change in stool caliber. Mild decrease in apetite, no known weight changes. Patient admits to feeling weak. Denies f/c, shortness of breath, chest pain, or urinary symptoms. No record of EGD or colonoscopy recently. Most recent CT of the chest/abdomen/pelvis (10/14) shows multiple large liver lesions in the left lobe. PMH: Denies PSH: Denies FH: No known family history of malignancies SH: Denies tobacco, alcohol, or drug use. Patient lives at home alone. ALL: Codeine, Demerol, Strawberries Meds: See MAR PMD: Dr. He Review of Systems - Constitutional Constitutional: Weakness. absent: Chills, Fever, Weight Loss - EENT Eyes: absent: Blind Spots, Blurred Vision Nose/Mouth/Throat: absent: Nasal Congestion, Nasal Discharge - Cardiovascular Cardiovascular: absent: Chest Pain, Dyspnea - Respiratory Respiratory: absent: Cough, Dyspnea - Gastrointestinal Gastrointestinal: Abdominal Pain, Bloating, Cramping, Diarrhea, Nausea, Temesmus, Vomiting. absent: Change in Stool Character, Dysphagia, Hematemesis, Melena - Genitourinary Genitourinary: absent: Difficulty Urinating, Dysuria - Musculoskeletal Musculoskeletal: absent: Back Pain, Neck Pain - Integumentary Integumentary: absent: Bleeding Lesions, Changing Lesions - Neurological Neurological: absent: Dizziness, Numbness - Psychiatric Psychiatric: absent: Anxiety, Depression Past Patient History - Infectious Disease Hx of Infectious Diseases: None - Past Social History Smoking Status: Never Smoked - CARDIAC Hx Cardiac Disorders: No - PULMONARY Hx Respiratory Disorders: Yes Hx Bronchitis: Yes (3 yrs ago) - NEUROLOGICAL Hx Neurological Disorder: Yes Hx Dizziness: Yes (SYNCOPE 3--13,--) - HEENT Hx HEENT Problems: Yes Hx Cataracts: Yes (BILATERAL SX) - RENAL Hx Chronic Kidney Disease: No - ENDOCRINE/METABOLIC Hx Endocrine Disorders: No - HEMATOLOGICAL/ONCOLOGICAL Hx Blood Disorders: No - INTEGUMENTARY Hx Dermatological Problems: Yes (TATTOOS) - MUSCULOSKELETAL/RHEUMATOLOGICAL Hx Musculoskeletal Disorders: Yes Hx Arthritis: Yes (back and knees) Hx Falls: Yes - GASTROINTESTINAL Hx Gastrointestinal Disorders: Yes (gastritis) Hx Gall Bladder Disease: Yes (CHOLECYSTECTOMY) - GENITOURINARY/GYNECOLOGICAL Hx Genitourinary Disorders: No - PSYCHIATRIC Hx Psychophysiologic Disorder: Yes Hx Depression: Yes (3 daughters alcoholics and one son in long-term) Hx Substance Use: No - SURGICAL HISTORY Hx Cholecystectomy: Yes (38 yrs ago) - ANESTHESIA Hx Anesthesia: Yes Hx Anesthesia Reactions: No Hx Malignant Hyperthermia: No Meds Allergies/Adverse Reactions: Allergies Allergy/AdvReac Type Severity Reaction Status Date / Time codeine Allergy HEADACHE Verified 09/03/18 12:58 meperidine [From Demerol] Allergy HEADACHE Verified 09/03/18 12:58 strawberry Allergy RASH Verified 09/03/18 12:58 CANTALOUPE Allergy RASH Uncoded 09/03/18 12:58 flu vaccine AdvReac Mild SHORTNESS Uncoded 09/03/18 12:58 OF BREATH - Medications Medications: Current Medications Ondansetron HCl (Zofran Inj) 4 mg IVP Q4H PRN PRN Reason: Nausea/Vomiting Last Admin: 10/21/18 22:56 Dose: 4 mg Physical Exam - Constitutional Appears: Well, Non-toxic, No Acute Distress - Head Exam Head Exam: ATRAUMATIC, NORMAL INSPECTION, NORMOCEPHALIC - Eye Exam Eye Exam: EOMI - ENT Exam ENT Exam: Mucous Membranes Dry - Neck Exam Neck exam: Positive for: Full Rom, Normal Inspection - Respiratory Exam Respiratory Exam: Clear to Auscultation Bilateral, NORMAL BREATHING PATTERN. absent: Wheezes, Respiratory Distress - Cardiovascular Exam Cardiovascular Exam: REGULAR RHYTHM, +S1, +S2. absent: Tachycardia, Systolic Mu rmur - GI/Abdominal Exam GI & Abdominal Exam: Normal Bowel Sounds, Soft, Tenderness. absent: Distended, Guarding, Rebound - Rectal Exam Rectal Exam: absent: Bloody Stool, Fecal Impaction - Extremities Exam Extremities exam: Positive for: normal inspection, pedal pulses present - Back Exam Back exam: absent: CVA tenderness (L), CVA tenderness (R) - Neurological Exam Neurological exam: Alert, Oriented x3 - Psychiatric Exam Psychiatric exam: Normal Affect, Normal Mood - Skin Skin Exam: Dry, Intact, Normal Color, Warm Results - Vital Signs Recent Vital Signs: Last Vital Signs Temp 98.3 F 10/21/18 17:30 Pulse 61 10/22/18 02:00 Resp 20 10/22/18 00:28 BP 135/67 10/21/18 21:30 Pulse Ox 98 10/21/18 21:30 - Labs Result Diagrams: 10/21/18 18:24 10/21/18 18:24 Labs: Laboratory Results - last 24 hr 10/21/18 10/21/18 10/21/18 18:24 18:24 18:53 WBC 7.3 D RBC 4.71 Hgb 8.8 L Hct 30.2 L MCV 64.1 L MCH 18.7 L MCHC 29.1 L RDW 21.1 H Plt Count 436 MPV 8.9 Neut % (Auto) 81.8 H Lymph % (Auto) 11.5 L [place] % (Auto) 6.0 Eos % (Auto) 0.3 L Baso % (Auto) 0.4 Lymph # (Auto) 0.8 L [place] # (Auto) 0.4 Eos # (Auto) 0.0 Baso # (Auto) 0.03 Absolute Neuts (auto) 5.97 Sodium 135 Potassium 4.1 Chloride 100 Carbon Dioxide 25 Anion Gap 14 BUN 14 Creatinine 0.6 L Est GFR ( Amer) > 60 Est GFR (Non-Af Amer) > 60 Random Glucose 124 H Calcium 9.5 Total Bilirubin 0.2 AST 35 ALT 12 Alkaline Phosphatase 77 Lactate Dehydrogenase 543 Total Creatine Kinase 51 Troponin I < 0.01 Total Protein 7.7 Albumin 4.1 Globulin 3.6 Albumin/Globulin Ratio 1.1 Amylase 82 Lipase 70 Urine Color Yellow Urine Appearance Clear Urine pH 6.5 Ur Specific [place] 1.020 Urine Protein Negative Urine Glucose (UA) Negative Urine Ketones Negative Urine Blood Negative Urine Nitrate Negative Urine Bilirubin Negative Urine Urobilinogen 0.2 Ur Leukocyte Esterase Negative Assessment & Plan - Assessment and Plan (Free Text) Assessment: 82F w/ intractable abdominal pain w/ CT evidence of transverse vs descending colon mass and left lobe liver lesions Plan: NPO IVF Antiemetics and analgesics F/u CEA CT CAP on 10/14 did not show nodules/masses in the lung CTAP 10/21 shows descending vs transverse colonic mass with concomitant left liver lobe lesions likely metastases Patient will likely need left hemicolectomy and left lobe transection for removal of lesions Family will be arriving tomorrow morning - will speak with family and patient to discuss plan of action Will medically optimize patient for future surgical intervention Will discuss with primary and GI teams for pre-operative planning D/w Dr. Vargas PGY1 <Antonio Blandon - Last Filed: 10/24/18 08:14> Meds - Medications Medications: Current Medications Alprazolam (Xanax) 0.25 mg PO BID PRN; Protocol PRN Reason: Anxiety Heparin Sodium (Porcine) (Heparin) 5,000 units SC Q8 [facility]; Protocol Last Admin: 10/24/18 05:16 Dose: 5,000 units Hydromorphone HCl (Dilaudid) 0.5 mg IVP Q3H PRN PRN Reason: Pain, severe (8-10) Last Admin: 10/23/18 20:28 Dose: 0.5 mg Lactated Ringer's (Lactated Ringer's) 1,000 mls @ 100 mls/hr IV .Q10H [facility] Last Admin: 10/24/18 05:00 Dose: 100 mls/hr Magnesium Hydroxide (Milk Of Magnesia) 30 ml PO DAILY [facility] Last Admin: 10/23/18 10:41 Dose: 30 ml Ondansetron HCl (Zofran Inj) 4 mg IVP Q4H PRN PRN Reason: Nausea/Vomiting Last Admin: 10/24/18 04:03 Dose: 4 mg Pantoprazole Sodium (Protonix Inj) 40 mg IVP DAILY [facility] Last Admin: 10/23/18 10:41 Dose: 40 mg Results - Vital Signs Recent Vital Signs: Last Vital Signs Temp 98 F 10/23/18 16:55 Pulse 54 L 10/24/18 05:44 Resp 19 10/23/18 16:55 BP 167/76 H 10/23/18 16:55 Pulse Ox 99 10/23/18 16:55 - Labs Result Diagrams: 10/23/18 08:00 10/23/18 08:00 Labs: Laboratory Results - last 24 hr 10/23/18 10/23/18 08:00 08:00 WBC 8.9 D RBC 4.89 Hgb 10.6 L D Hct 33.6 L MCV 68.7 L D MCH 21.7 L MCHC 31.5 RDW 24.4 H Plt Count 363 MPV 8.8 Neut % (Auto) 77.6 H Lymph % (Auto) 13.0 L [place] % (Auto) 9.2 H Eos % (Auto) 0.1 L Baso % (Auto) 0.1 Lymph # (Auto) 1.2 [place] # (Auto) 0.8 H Eos # (Auto) 0.0 Baso # (Auto) 0.01 Absolute Neuts (auto) 6.88 H Sodium 139 Potassium 4.0 Chloride 101 Carbon Dioxide 29 Anion Gap 13 BUN 13 Creatinine 0.6 L Est GFR ( Amer) > 60 Est GFR (Non-Af Amer) > 60 Random Glucose 121 H Calcium 9.0 Total Bilirubin 0.7 AST 29 ALT 20 Alkaline Phosphatase 72 Total Protein 6.9 Albumin 3.5 Globulin 3.4 Albumin/Globulin Ratio 1.0 L Assessment & Plan - Assessment and Plan (Free Text) Plan: All medical record entries made by the resident were at my direction. I have reviewed the chart and agree that the record accurately reflects my personal performance of the history, physical exam, medical decision making, and the department course for this patient On review of her CT scan there is a mass in the left lateral segment. There is also lesion right lobe. Her options for treatment of the liver metastasis left lateral segmentectomy with US guided ablation of the lesions in her right lobe, followed by chem or Y90 or left lateral segment follwed by chemo. Will present her at tumor board.
[2018-10-22] MEDS ORDERED: HYDROmorphone 0.5 mg/0.5 ml ISec IVP PRN (03:56)
[2018-10-22] MEDS ORDERED: DiphenhydrAMINE 50 mg/ml Inj IVP PRN (03:56)
[2018-10-22] MEDS: Lactated Ringer's 1,000 ML IV SCH ×3 (04:48→17:41)
[2018-10-22 07:12] LABS: INR 1.12; PROTHROMBIN TIME 12.6 SECONDS (9.4-12.5)
[2018-10-22 07:17] LABS: ALBUMIN 3.4 g/dL (3.0-4.8); ALT/SGPT 18 U/L (7-56); AST/SGOT 31 U/L (14-36); BLOOD UREA NITROGEN 13 mg/dL (7-21); CALCIUM 8.9 mg/dL (8.4-10.5); GFR NON-AFRICAN AMERICAN > 60; IRON 12 ug/dL (45-180)
[2018-10-22 07:27] LABS: % IRON SATURATION 3 % (20-55); TOTAL IRON BINDING CAPACITY 448 ug/dL (265-497)
--- NOTE | 2018-10-22 07:44 | RAD ---
Date of service: 10/21/2018 HISTORY: chest pain COMPARISON: 10/12/2018 TECHNIQUE: 1 view obtained. FINDINGS: LUNGS: No active pulmonary disease. PLEURA: No significant pleural effusion identified, no pneumothorax apparent. CARDIOVASCULAR: No aortic atherosclerotic calcification present. Normal cardiac size. No pulmonary vascular congestion. OSSEOUS STRUCTURES: No significant abnormalities. VISUALIZED UPPER ABDOMEN: Normal. OTHER FINDINGS: None. IMPRESSION: No active disease.
[2018-10-22 08:16] LABS: BASO # 0.03 K/mm3 (0.0-2.0); BASO % 0.4 % (0.0-3.0); EOS % 0.4 % (1.5-5.0); HEMOGLOBIN 8.5 g/dL (12.0-16.0); LYMPH # 1.1 (1.2-3.4); LYMPH % 15.4 % (22.0-35.0); MEAN CELL VOLUME 63.8 fl (80.0-105.0); MEAN CORPUSCULAR HEMOGLOBIN 19.1 pg (25.0-35.0); MEAN CORPUSCULAR HGB CONC 29.9 g/dl (31.0-37.0); MEAN PLATELET VOLUME 8.9 fl (7.0-11.0); MONO # 0.8 (0.1-0.6); MONO % 11.5 % (1.0-6.0); RBC 4.45 10^6/uL (3.5-6.1); RED CELL DISTRIBUTION WIDTH 21.2 % (11.5-14.5); WHITE BLOOD COUNT 7.1 10^3/uL (4.5-11.0)
--- NOTE | 2018-10-22 09:10 | CT ---
Date of service: 10/21/2018 PROCEDURE: CT Abdomen and Pelvis with and without intravenous contrast HISTORY: abd pain COMPARISON: 09/03/2018 TECHNIQUE: Axial images of the abdomen were obtained in the pre contrast, portal venous and delayed phases of enhancement. Coronal and sagittal reformats were generated. Contrast dose: Radiation dose: Total exam DLP = 485.63 mGy-cm. This CT exam was performed using one or more of the following dose reduction techniques: Automated exposure control, adjustment of the mA and/or kV according to patient size, and/or use of iterative reconstruction technique. FINDINGS: LOWER THORAX: Small hiatal hernia. LIVER: No significant oval change in 2 heterogeneous masses measuring 45 centimeters and 3.4 centimeters in the lateral segment of left hepatic lobe. GALLBLADDER AND BILE DUCTS: Cholecystectomy. PANCREAS: Unremarkable. No gross lesion or ductal dilatation. SPLEEN: Unremarkable. ADRENALS: Unremarkable. No mass. KIDNEYS AND URETERS: Unremarkable. No hydronephrosis. No solid mass. VASCULATURE: Unremarkable. No aortic aneurysm. No aortic atherosclerotic calcification or mural plaque present. BOWEL: Redemonstration of an annular neoplasm in the distal transverse colon/splenic flexure. Associated the fluid in the proximal colon. APPENDIX: Normal appendix. PERITONEUM: Unremarkable. No free fluid. No free air. LYMPH NODES: Unremarkable. No enlarged lymph nodes. BLADDER: Unremarkable. REPRODUCTIVE: Unremarkable. BONES: No acute fracture. OTHER FINDINGS: None. IMPRESSION: Redemonstration of an annular neoplasm in the distal transverse colon/splenic flexure. Associated the fluid in the proximal colon. No significant oval change in 2 heterogeneous masses measuring 45 centimeters and 3.4 centimeters in the lateral segment of left hepatic lobe.
[2018-10-22] MEDS: HYDROmorphone 0.5 mg/0.5 ml ISec IVP PRN ×2 (10:14→17:40)
[2018-10-22] MEDS ORDERED: Magnesium Hydroxide Susp 30 ml UD PO PRN (11:09)
--- NOTE | 2018-10-22 11:15 | CP.PCM.CON ---
History of Present Illness - History of Present Illness History of Present Illness: Surgery Consult note. Dr. Vela 82yo F with PMHx of Anxiety and HLD here for worsening diffuse abdominal pain. Patient has been having abdominal pain located in the right side of her abdomen off and on for the past 2 months, which has worsened over the past week. Reports intermittent blood tinged loose bowel movements over the same time period. Denies any current nausea. Does report 1 episode of emesis prior to arrival yesterday. She does report some mild anorexia. Denies any recent weight gain or loss. Does report worsening fatigue over the past 2 months. Denies any urinary symptoms. No fevers or chills. CT A/P with evidence of a mass at the splenic flexure which is nearly obstructing. At least 2 peripheral liver lesions which have been stable since prior scan on 10/14/18. General surgery consult was requested by [facility] surgery for possible resection of the colonic mass. PMHx: Anxiety, HLD PSHx: Cholecystectomy, Family Hx: Denies. Non-contributory Social Hx: Denies any tobacco use, Denies any ETOH use, Denies any illicit drugs Allergy: Codeine, Meperidine Review of Systems - Review of Systems All systems: reviewed and no additional remarkable complaints except - Constitutional Constitutional: Anorexia, Fatigue, Malaise. absent: Chills - EENT Eyes: absent: Change in Vision - Cardiovascular Cardiovascular: absent: Chest Pain, Dyspnea - Respiratory Respiratory: absent: Cough, Dyspnea - Gastrointestinal Gastrointestinal: Abdominal Pain, Constipation, Hematochezia, Loose Stools, Nausea, Vomiting - Genitourinary Genitourinary: absent: Difficulty Urinating, Dysuria Past Patient History - Infectious Disease Hx of Infectious Diseases: None - Past Medical History & Family History Past Medical History?: Yes Past Family History: Reviewed and not pertinent - Past Social History Smoking Status: Never Smoked Alcohol: None Drugs: Denies - CARDIAC Hx Cardiac Disorders: No - PULMONARY Hx Respiratory Disorders: Yes Hx Bronchitis: Yes (3 yrs ago) - NEUROLOGICAL Hx Neurological Disorder: Yes Hx Dizziness: Yes (SYNCOPE 13,12-20-16) - HEENT Hx HEENT Problems: Yes Hx Cataracts: Yes (BILATERAL SX) - RENAL Hx Chronic Kidney Disease: No - ENDOCRINE/METABOLIC Hx Endocrine Disorders: No - HEMATOLOGICAL/ONCOLOGICAL Hx Blood Disorders: No - INTEGUMENTARY Hx Dermatological Problems: Yes (TATTOOS) - MUSCULOSKELETAL/RHEUMATOLOGICAL Hx Musculoskeletal Disorders: Yes Hx Arthritis: Yes (back and knees) Hx Falls: Yes - GASTROINTESTINAL Hx Gastrointestinal Disorders: Yes (gastritis) Hx Gall Bladder Disease: Yes (CHOLECYSTECTOMY) - GENITOURINARY/GYNECOLOGICAL Hx Genitourinary Disorders: No - PSYCHIATRIC Hx Psychophysiologic Disorder: Yes Hx Depression: Yes (3 daughters alcoholics and one son in senior care) Hx Substance Use: No - SURGICAL HISTORY Hx Cholecystectomy: Yes (38 yrs ago) - ANESTHESIA Hx Anesthesia: Yes Hx Anesthesia Reactions: No Hx Malignant Hyperthermia: No Meds Allergies/Adverse Reactions: Allergies Allergy/AdvReac Type Severity Reaction Status Date / Time codeine Allergy HEADACHE Verified 09/03/18 12:58 meperidine [From Demerol] Allergy HEADACHE Verified 09/03/18 12:58 strawberry Allergy RASH Verified 09/03/18 12:58 [place] Allergy RASH Uncoded 09/03/18 12:58 flu vaccine AdvReac Mild SHORTNESS Uncoded 09/03/18 12:58 OF BREATH - Medications Medications: Current Medications Alprazolam (Xanax) 0.5 mg PO BID PRN; Protocol PRN Reason: Anxiety Atorvastatin Calcium (Lipitor) 40 mg PO DIN [facility] Diphenhydramine HCl (Benadryl) 50 mg IVP Q4H PRN PRN Reason: Allergy symptoms Heparin Sodium (Porcine) (Heparin) 5,000 units SC Q8 [facility]; Protocol Hydromorphone HCl (Dilaudid) 0.5 mg IVP Q3H PRN PRN Reason: Pain, severe (8-10) Last Admin: 10/22/18 10:14 Dose: 0.5 mg Lactated Ringer's (Lactated Ringer's) 1,000 mls @ 100 mls/hr IV .Q10H [facility] Last Admin: 10/22/18 04:48 Dose: 100 mls/hr Ondansetron HCl (Zofran Inj) 4 mg IVP Q4H PRN PRN Reason: Nausea/Vomiting Last Admin: 10/22/18 10:14 Dose: 4 mg Pantoprazole Sodium (Protonix Inj) 40 mg IVP DAILY [facility] Last Admin: 10/22/18 10:14 Dose: 40 mg Physical Exam - Constitutional Appears: Well, Non-toxic, No Acute Distress - Head Exam Head Exam: ATRAUMATIC, NORMAL INSPECTION, NORMOCEPHALIC - Eye Exam Eye Exam: EOMI, Normal appearance. absent: Scleral icterus - ENT Exam ENT Exam: Mucous Membranes Moist - Neck Exam Neck exam: Positive for: Normal Inspection - Respiratory Exam Respiratory Exam: NORMAL BREATHING PATTERN. absent: Accessory Muscle Use - Cardiovascular Exam Cardiovascular Exam: absent: JVD - GI/Abdominal Exam GI & Abdominal Exam: Soft. absent: Firm, Guarding, Rebound Additional comments: mild tenderness RLQ. no peritoneal signs. - Extremities Exam Extremities exam: Positive for: normal inspection. Negative for: calf tenderness - Neurological Exam Neurological exam: Alert, Oriented x3 - Psychiatric Exam Psychiatric exam: Normal Affect, Normal Mood - Skin Skin Exam: Dry, Intact, Normal Color, Warm Results - Vital Signs Recent Vital Signs: Last Vital Signs Temp 98.3 F 10/21/18 17:30 Pulse 69 10/22/18 05:34 Resp 20 10/22/18 00:28 BP 135/67 10/21/18 21:30 Pulse Ox 98 10/21/18 21:30 - Labs Result Diagrams: 10/22/18 06:00 10/22/18 06:00 Labs: Laboratory Results - last 24 hr 10/21/18 10/21/18 10/21/18 18:24 18:24 18:53 WBC 7.3 D RBC 4.71 Hgb 8.8 L Hct 30.2 L MCV 64.1 L MCH 18.7 L MCHC 29.1 L RDW 21.1 H Plt Count 436 MPV 8.9 Neut % (Auto) 81.8 H Lymph % (Auto) 11.5 L [place] % (Auto) 6.0 Eos % (Auto) 0.3 L Baso % (Auto) 0.4 Lymph # (Auto) 0.8 L [place] # (Auto) 0.4 Eos # (Auto) 0.0 Baso # (Auto) 0.03 Absolute Neuts (auto) 5.97 PT INR Sodium 135 Potassium 4.1 Chloride 100 Carbon Dioxide 25 Anion Gap 14 BUN 14 Creatinine 0.6 L Est GFR ( Amer) > 60 Est GFR (Non-Af Amer) > 60 Random Glucose 124 H Calcium 9.5 Iron TIBC % Saturation Total Bilirubin 0.2 AST 35 ALT 12 Alkaline Phosphatase 77 Lactate Dehydrogenase 543 Total Creatine Kinase 51 Troponin I < 0.01 Total Protein 7.7 Albumin 4.1 Globulin 3.6 Albumin/Globulin Ratio 1.1 Amylase 82 Lipase 70 Carcinoembryonic Ag Urine Color Yellow Urine Appearance Clear Urine pH 6.5 Ur Specific Coleman 1.020 Urine Protein Negative Urine Glucose (UA) Negative Urine Ketones Negative Urine Blood Negative Urine Nitrate Negative Urine Bilirubin Negative Urine Urobilinogen 0.2 Ur Leukocyte Esterase Negative 10/22/18 10/22/18 10/22/18 06:00 06:00 06:00 WBC 7.1 RBC 4.45 Hgb 8.5 L Hct 28.4 L MCV 63.8 L MCH 19.1 L MCHC 29.9 L RDW 21.2 H Plt Count 418 MPV 8.9 Neut % (Auto) 72.3 H Lymph % (Auto) 15.4 L [place] % (Auto) 11.5 H Eos % (Auto) 0.4 L Baso % (Auto) 0.4 Lymph # (Auto) 1.1 L [place] # (Auto) 0.8 H Eos # (Auto) 0.0 Baso # (Auto) 0.03 Absolute Neuts (auto) 5.11 PT INR Sodium 136 Potassium 4.0 Chloride 104 Carbon Dioxide 25 Anion Gap 11 BUN 13 Creatinine 0.7 Est GFR ( Amer) > 60 Est GFR (Non-Af Amer) > 60 Random Glucose 110 Calcium 8.9 Iron TIBC % Saturation Total Bilirubin 0.3 AST 31 ALT 18 Alkaline Phosphatase 66 Lactate Dehydrogenase Total Creatine Kinase Troponin I Total Protein 6.8 Albumin 3.4 Globulin 3.3 Albumin/Globulin Ratio 1.0 L Amylase Lipase Carcinoembryonic Ag 206.0 H Urine Color Urine Appearance Urine pH Ur Specific Coleman Urine Protein Urine Glucose (UA) Urine Ketones Urine Blood Urine Nitrate Urine Bilirubin Urine Urobilinogen Ur Leukocyte Esterase 10/22/18 10/22/18 06:00 06:00 WBC RBC Hgb Hct MCV MCH MCHC RDW Plt Count MPV Neut % (Auto) Lymph % (Auto) Banner % (Auto) Eos % (Auto) Baso % (Auto) Lymph # (Auto) [place] # (Auto) Eos # (Auto) Baso # (Auto) Absolute Neuts (auto) PT 12.6 H INR 1.12 Sodium Potassium Chloride Carbon Dioxide Anion Gap BUN Creatinine Est GFR ( Amer) Est GFR (Non-Af Amer) Random Glucose Calcium Iron 12 L TIBC 448 % Saturation 3 L Total Bilirubin AST ALT Alkaline Phosphatase Lactate Dehydrogenase Total Creatine Kinase Troponin I Total Protein Albumin Globulin Albumin/Globulin Ratio Amylase Lipase Carcinoembryonic Ag Urine Color Urine Appearance Urine pH Ur Specific Coleman Urine Protein Urine Glucose (UA) Urine Ketones Urine Blood Urine Nitrate Urine Bilirubin Urine Urobilinogen Ur Leukocyte Esterase Assessment & Plan - Assessment and Plan (Free Text) Assessment: 82yo F with PMHx of Anxiety, HLD here with a nearly obstructing colonic mass at splenic flexure -CT A/P noted Plan: - IVF - Antiemetics prn - pain control - DVT ppx - Gentle laxitives now: Milk of Magnesia - Heme/Onc consult - f/u tumor markers - Medical optimization and clearance as per PMD appreciated - Recommend Injection Molding Machine Offbearer evaluation and recommendations to optimize status prior to surgery - Will need gentle laxitives now, then bowel prep prior to OR next week - We will plan for OR next week Further recs as per Dr. Dane Hunter PGY2 surgery
--- NOTE | 2018-10-22 11:19 | CP.PCM.CON ---
<Kunal Olson - Last Filed: 10/22/18 11:38> History of Present Illness - History of Present Illness History of Present Illness: Kunal Olson PGY2 GI Consult Note for Dr. Vasquez Reason for consult: liver lesions, anemia, eval to r/o colorectal ca Ms. Chen is an 82 year old female with a PMH of HLD and anxiety who is admitted for liver lesions found on abdominal US recently, and for continued abdominal pain, emesis and diarrhea. GI consulted for liver lesions, anemia, eval to r/o colorectal ca. The patient describes the pain as diffuse and intermittent in nature and was seen in our ED before for similar pain. Patient has been following Dr. He as outpatient and states that he has been urging her to have a colonoscopy done, however, the patient has been refusing. She occasionally has blood tinged diarrhea or dark stools, however it has not b een consistent. No change in stool caliber. Patient is complaining of fatigue but denies any chest pain, fevers/chills. 12-pt ROS was reviewed and is otherwise unremarkable. Patient has never had an EGD or colonoscopy due to her refusal. PMD: Dr. He PMH: as above PSH: cholecystectomy and cataract surgery Meds: reviewed ,as per MAR Allergies: Codeine, Demerol, Strawberries SH: Denies tobacco, alcohol, or drug use. Patient lives at home alone. Has daughter in [place] (Who is flying in) but patient states that daughter is an alcoholic. FH: No known family history of malignancies Review of Systems - Review of Systems All systems: reviewed and no additional remarkable complaints except (as per HPI) Past Patient History - Infectious Disease Hx of Infectious Diseases: None - Past Social History Smoking Status: Never Smoked - CARDIAC Hx Cardiac Disorders: No - PULMONARY Hx Respiratory Disorders: Yes Hx Bronchitis: Yes (3 yrs ago) - NEUROLOGICAL Hx Neurological Disorder: Yes Hx Dizziness: Yes (SYNCOPE 13,12-20-) - HEENT Hx HEENT Problems: Yes Hx Cataracts: Yes (BILATERAL SX) - RENAL Hx Chronic Kidney Disease: No - ENDOCRINE/METABOLIC Hx Endocrine Disorders: No - HEMATOLOGICAL/ONCOLOGICAL Hx Blood Disorders: No - INTEGUMENTARY Hx Dermatological Problems: Yes (TATTOOS) - MUSCULOSKELETAL/RHEUMATOLOGICAL Hx Musculoskeletal Disorders: Yes Hx Arthritis: Yes (back and knees) Hx Falls: Yes - GASTROINTESTINAL Hx Gastrointestinal Disorders: Yes (gastritis) Hx Gall Bladder Disease: Yes (CHOLECYSTECTOMY) - GENITOURINARY/GYNECOLOGICAL Hx Genitourinary Disorders: No - PSYCHIATRIC Hx Psychophysiologic Disorder: Yes Hx Depression: Yes (3 daughters alcoholics and one son in residential) Hx Substance Use: No - SURGICAL HISTORY Hx Cholecystectomy: Yes (38 yrs ago) - ANESTHESIA Hx Anesthesia: Yes Hx Anesthesia Reactions: No Hx Malignant Hyperthermia: No Meds Allergies/Adverse Reactions: Allergies Allergy/AdvReac Type Severity Reaction Status Date / Time codeine Allergy HEADACHE Verified 09/03/18 12:58 meperidine [From Demerol] Allergy HEADACHE Verified 09/03/18 12:58 strawberry Allergy RASH Verified 09/03/18 12:58 [place] Allergy RASH Uncoded 09/03/18 12:58 flu vaccine AdvReac Mild SHORTNESS Uncoded 09/03/18 12:58 OF BREATH - Medications Medications: Current Medications Alprazolam (Xanax) 0.5 mg PO BID PRN; Protocol PRN Reason: Anxiety Atorvastatin Calcium (Lipitor) 40 mg PO DIN CYNTHIA Diphenhydramine HCl (Benadryl) 50 mg IVP Q4H PRN PRN Reason: Allergy symptoms Heparin Sodium (Porcine) (Heparin) 5,000 units SC Q8 [facility]; Protocol Hydromorphone HCl (Dilaudid) 0.5 mg IVP Q3H PRN PRN Reason: Pain, severe (8-10) Last Admin: 10/22/18 10:14 Dose: 0.5 mg Lactated Ringer's (Lactated Ringer's) 1,000 mls @ 100 mls/hr IV .Q10H [facility] Last Admin: 10/22/18 04:48 Dose: 100 mls/hr Magnesium Hydroxide (Milk Of Magnesia) 30 ml PO DAILY [facility] Ondansetron HCl (Zofran Inj) 4 mg IVP Q4H PRN PRN Reason: Nausea/Vomiting Last Admin: 10/22/18 10:14 Dose: 4 mg Pantoprazole Sodium (Protonix Inj) 40 mg IVP DAILY [facility] Last Admin: 10/22/18 10:14 Dose: 40 mg Physical Exam - Constitutional Appears: Well, Non-toxic, No Acute Distress - Head Exam Head Exam: ATRAUMATIC, NORMAL INSPECTION - Eye Exam Eye Exam: EOMI, Normal appearance. absent: Scleral icterus - ENT Exam ENT Exam: Mucous Membranes Moist, Normal Exam - Respiratory Exam Respiratory Exam: NORMAL BREATHING PATTERN. absent: Respiratory Distress - Cardiovascular Exam Cardiovascular Exam: RRR, +S1, +S2 - GI/Abdominal Exam GI & Abdominal Exam: Guarding, Normal Bowel Sounds, Soft, Tenderness (RLQ ). absent: Distended - Extremities Exam Extremities exam: Positive for: full ROM, normal inspection - Neurological Exam Neurological exam: Alert, Oriented x3 - Psychiatric Exam Psychiatric exam: Anxious - Skin Skin Exam: Normal Color, Warm Results - Vital Signs Recent Vital Signs: Last Vital Signs Temp 98.3 F 10/21/18 17:30 Pulse 69 10/22/18 05:34 Resp 20 10/22/18 00:28 BP 135/67 10/21/18 21:30 Pulse Ox 98 10/21/18 21:30 - Labs Result Diagrams: 10/22/18 06:00 10/22/18 06:00 Labs: Laboratory Results - last 24 hr 10/21/18 10/21/18 10/21/18 18:24 18:24 18:53 WBC 7.3 D RBC 4.71 Hgb 8.8 L Hct 30.2 L MCV 64.1 L MCH 18.7 L MCHC 29.1 L RDW 21.1 H Plt Count 436 MPV 8.9 Neut % (Auto) 81.8 H Lymph % (Auto) 11.5 L [place] % (Auto) 6.0 Eos % (Auto) 0.3 L Baso % (Auto) 0.4 Lymph # (Auto) 0.8 L [place] # (Auto) 0.4 Eos # (Auto) 0.0 Baso # (Auto) 0.03 Absolute Neuts (auto) 5.97 PT INR Sodium 135 Potassium 4.1 Chloride 100 Carbon Dioxide 25 Anion Gap 14 BUN 14 Creatinine 0.6 L Est GFR ( Amer) > 60 Est GFR (Non-Af Amer) > 60 Random Glucose 124 H Calcium 9.5 Iron TIBC % Saturation Total Bilirubin 0.2 AST 35 ALT 12 Alkaline Phosphatase 77 Lactate Dehydrogenase 543 Total Creatine Kinase 51 Troponin I < 0.01 Total Protein 7.7 Albumin 4.1 Globulin 3.6 Albumin/Globulin Ratio 1.1 Amylase 82 Lipase 70 Carcinoembryonic Ag Urine Color Yellow Urine Appearance Clear Urine pH 6.5 Ur Specific [place] 1.020 Urine Protein Negative Urine Glucose (UA) Negative Urine Ketones Negative Urine Blood Negative Urine Nitrate Negative Urine Bilirubin Negative Urine Urobilinogen 0.2 Ur Leukocyte Esterase Negative 10/22/18 10/22/18 10/22/18 06:00 06:00 06:00 WBC 7.1 RBC 4.45 Hgb 8.5 L Hct 28.4 L MCV 63.8 L MCH 19.1 L MCHC 29.9 L RDW 21.2 H Plt Count 418 MPV 8.9 Neut % (Auto) 72.3 H Lymph % (Auto) 15.4 L [place] % (Auto) 11.5 H Eos % (Auto) 0.4 L Baso % (Auto) 0.4 Lymph # (Auto) 1.1 L [place] # (Auto) 0.8 H Eos # (Auto) 0.0 Baso # (Auto) 0.03 Absolute Neuts (auto) 5.11 PT INR Sodium 136 Potassium 4.0 Chloride 104 Carbon Dioxide 25 Anion Gap 11 BUN 13 Creatinine 0.7 Est GFR ( Amer) > 60 Est GFR (Non-Af Amer) > 60 Random Glucose 110 Calcium 8.9 Iron TIBC % Saturation Total Bilirubin 0.3 AST 31 ALT 18 Alkaline Phosphatase 66 Lactate Dehydrogenase Total Creatine Kinase Troponin I Total Protein 6.8 Albumin 3.4 Globulin 3.3 Albumin/Globulin Ratio 1.0 L Amylase Lipase Carcinoembryonic Ag 206.0 H Urine Color Urine Appearance Urine pH Ur Specific [place] Urine Protein Urine Glucose (UA) Urine Ketones Urine Blood Urine Nitrate Urine Bilirubin Urine Urobilinogen Ur Leukocyte Esterase 10/22/18 10/22/18 06:00 06:00 WBC RBC Hgb Hct MCV MCH MCHC RDW Plt Count MPV Neut % (Auto) Lymph % (Auto) [place] % (Auto) Eos % (Auto) Baso % (Auto) Lymph # (Auto) [place] # (Auto) Eos # (Auto) Baso # (Auto) Absolute Neuts (auto) PT 12.6 H INR 1.12 Sodium Potassium Chloride Carbon Dioxide Anion Gap BUN Creatinine Est GFR ( Amer) Est GFR (Non-Af Amer) Random Glucose Calcium Iron 12 L TIBC 448 % Saturation 3 L Total Bilirubin AST ALT Alkaline Phosphatase Lactate Dehydrogenase Total Creatine Kinase Troponin I Total Protein Albumin Globulin Albumin/Globulin Ratio Amylase Lipase Carcinoembryonic Ag Urine Color Urine Appearance Urine pH Ur Specific [place] Urine Protein Urine Glucose (UA) Urine Ketones Urine Blood Urine Nitrate Urine Bilirubin Urine Urobilinogen Ur Leukocyte Esterase Assessment & Plan - Assessment and Plan (Free Text) Assessment: 82 year old female with a PMH of HLD and anxiety who is admitted for liver lesions found on abdominal US recently, and for continued abdominal pain, emesis and diarrhea. CT Abd/pelvis reviewed showing a mass in the splenic flexure, and 2 liver masses; pancreas has no lesions. Anemia is noted but stable. Plan: - patient will require colonoscopy for further evaluation and possible managemen t (eg. colonic stent) - patient is currently refusing colonoscopy - will discuss w/ PMD - monitor H/H - Heme/Onc following - Surgery team following awaiting recs - further recs per Dr. Vasquez Case was reviewed and discussed with Dr. Vasquez <Norma Vasquez V - Last Filed: 10/22/18 23:18> Meds - Medications Medications: Current Medications Alprazolam (Xanax) 0.25 mg PO BID PRN; Protocol PRN Reason: Anxiety Heparin Sodium (Porcine) (Heparin) 5,000 units SC Q8 [facility]; Protocol Last Admin: 10/22/18 22:18 Dose: Not Given Hydromorphone HCl (Dilaudid) 0.5 mg IVP Q3H PRN PRN Reason: Pain, severe (8-10) Last Admin: 10/22/18 17:40 Dose: 0.5 mg Lactated Ringer's (Lactated Ringer's) 1,000 mls @ 100 mls/hr IV .Q10H [facility] Last Admin: 10/22/18 17:41 Dose: 100 mls/hr Magnesium Hydroxide (Milk Of Magnesia) 30 ml PO DAILY [facility] Ondansetron HCl (Zofran Inj) 4 mg IVP Q4H PRN PRN Reason: Nausea/Vomiting Last Admin: 10/22/18 10:14 Dose: 4 mg Pantoprazole Sodium (Protonix Inj) 40 mg IVP DAILY [facility] Last Admin: 10/22/18 10:14 Dose: 40 mg Results - Vital Signs Recent Vital Signs: Last Vital Signs Temp 98.3 F 10/21/18 17:30 Pulse 65 10/22/18 18:00 Resp 20 10/22/18 00:28 BP 135/67 10/21/18 21:30 Pulse Ox 98 10/21/18 21:30 - Labs Result Diagrams: 10/22/18 06:00 10/22/18 06:00 Labs: Laboratory Results - last 24 hr 10/22/18 10/22/18 10/22/18 06:00 06:00 06:00 WBC 7.1 RBC 4.45 Hgb 8.5 L Hct 28.4 L MCV 63.8 L MCH 19.1 L MCHC 29.9 L RDW 21.2 H Plt Count 418 MPV 8.9 Neut % (Auto) 72.3 H Lymph % (Auto) 15.4 L [place] % (Auto) 11.5 H Eos % (Auto) 0.4 L Baso % (Auto) 0.4 Lymph # (Auto) 1.1 L [place] # (Auto) 0.8 H Eos # (Auto) 0.0 Baso # (Auto) 0.03 Absolute Neuts (auto) 5.11 PT INR Sodium 136 Potassium 4.0 Chloride 104 Carbon Dioxide 25 Anion Gap 11 BUN 13 Creatinine 0.7 Est GFR ( Amer) > 60 Est GFR (Non-Af Amer) > 60 Random Glucose 110 Calcium 8.9 Iron TIBC % Saturation Ferritin 8.1 Total Bilirubin 0.3 AST 31 ALT 18 Alkaline Phosphatase 66 Total Protein 6.8 Albumin 3.4 Globulin 3.3 Albumin/Globulin Ratio 1.0 L Alpha Fetoprotein Carcinoembryonic Ag 206.0 H CA 125 Antigen 26.3 Blood Type Blood Type Confirm Antibody Screen Crossmatch BBK History Checked 10/22/18 10/22/18 10/22/18 06:00 06:00 06:00 WBC RBC Hgb Hct MCV MCH MCHC RDW Plt Count MPV Neut % (Auto) Lymph % (Auto) [place] % (Auto) Eos % (Auto) Baso % (Auto) Lymph # (Auto) [place] # (Auto) Eos # (Auto) Baso # (Auto) Absolute Neuts (auto) PT 12.6 H INR 1.12 Sodium Potassium Chloride Carbon Dioxide Anion Gap BUN Creatinine Est GFR ( Amer) Est GFR (Non-Af Amer) Random Glucose Calcium Iron 12 L TIBC 448 % Saturation 3 L Ferritin Total Bilirubin AST ALT Alkaline Phosphatase Total Protein Albumin Globulin Albumin/Globulin Ratio Alpha Fetoprotein 4.2 Carcinoembryonic Ag CA 125 Antigen Blood Type Blood Type Confirm Antibody Screen Crossmatch BBK History Checked 10/22/18 10/22/18 21:00 21:30 WBC RBC Hgb Hct MCV MCH MCHC RDW Plt Count MPV Neut % (Auto) Lymph % (Auto) [place] % (Auto) Eos % (Auto) Baso % (Auto) Lymph # (Auto) [place] # (Auto) Eos # (Auto) Baso # (Auto) Absolute Neuts (auto) PT INR Sodium Potassium Chloride Carbon Dioxide Anion Gap BUN Creatinine Est GFR ( Amer) Est GFR (Non-Af Amer) Random Glucose Calcium Iron TIBC % Saturation Ferritin Total Bilirubin AST ALT Alkaline Phosphatase Total Protein Albumin Globulin Albumin/Globulin Ratio Alpha Fetoprotein Carcinoembryonic Ag CA 125 Antigen Blood Type O POSITIVE Blood Type Confirm O POSITIVE Antibody Screen Negative Crossmatch See Detail BBK History Checked No verified bt Attending/Attestation - Attestation I have personally seen and examined this patient.: Yes I have fully participated in the care of the patient.: Yes I have reviewed all pertinent clinical information: Yes Notes (Text): This is an addendum to the GI consultation report dictated by the resident the patient was seen and evaluated here earlier. Discussed with Dr. Charles He, Dr. Barlow, Dr. Cheney, Dr. Moncada This patient has distal transverse colon obstructing lesion with distention. Multiple hepatic lesions both in right and left lobes of liver were involved. In view of the significant distention of the proximal colon,we would avoid aggressive bowel preparation for colonoscopy. I reviewed the CT scan Patient is scheduled for colon resection next week. Colonoscopy is based on the clinical course for this patient 10/22/18 23:07
--- NOTE | 2018-10-22 12:43 | HP ---
HISTORY OF PRESENT ILLNESS: The patient is an 82-year-old woman with no significant past medical history who presented for evaluation of a 2 month history of intermittent abdominal discomfort associated with bloating, cramping and changes in bowel patterns. She was recently seen in [facility] ED on 09/03/18 for evaluation of a 4 hour history of nausea, vomiting, and diarrhea. Workup at that time was unremarkable, including a CT of the abdomen and pelvis which demonstrated no acute pathology. She was diagnosed with a viral gastroenteritis and discharged home with spontaneous resolution of her symptoms over the following 36 hours. She was feeling well for the next several days until she redeveloped abdominal pain associated with bloating and cramping. She presented to her PMD for evaluation and was advised to follow-up with a machine operations supervisor for further evaluation given that she has not had a colonoscopy for several years. She declined invasive GI workup at that time, opting for dietary changes. On 10/12/18 she returned to the ED with persistent abdominal pain and underwent an abdominal ultrasound which demonstrated 2 echogenic masses to the left lobe of the liver concerning for metastatic deposits. She again followed up with her PMD and underwent a CT of the chest, abdomen and pelvis with IV contrast which confirmed the hepatic lesions. She was again encouraged to pursue a colonoscopy but declined. Dr. Giovani Bender of IR was called and stated that the lesions would be amenable to biopsy but reiterated the need to pursue invasive GI workup. Over the next several days she was experiencing increased pain and returned to the ED on 10/21/18 for reevaluation. A repeat CT of the abdomen and pelvis demonstrated stable hepatic lesions and a newly seen 3.3 x 2.6 cm annular neoplasm to the distal transverse colon. She was subsequently admitted for continued GI and surgical evaluation of what appears to represent metastatic colorectal cancer. PAST MEDICAL HISTORY: Anxiety disorder, hyperlipidemia, and insomnia. PAST SURGICAL HISTORY: Cholecystectomy and bilateral cataract removal. ALLERGIES: Codeine and Meperidine. MEDICATIONS: Xanax 0.5 mg p.o. b.i.d. p.r.n. anxiety and Lipitor 40 mg p.o. daily. FAMILY HISTORY: Noncontributory. SOCIAL HISTORY: The patient denies any toxic habits. REVIEW OF SYSTEMS: Significant for alterations in bowel habits, abdominal cramping, abdominal bloating, nausea, vomiting and occasional blood-streaked stools. Negative for fevers, chills, night sweats, weight loss, melena or hematemesis. PHYSICAL EXAMINATION: VITAL SIGNS: T 98.3, P 69, BP 135/67, RR 20, O2 saturation 98% on room air. GENERAL: No apparent distress. HEENT: PERRL, EOMI. No scleral icterus. Mild conjunctival pallor is noted. NECK: Supple with full range of motion. No JVD, no bruits. LUNGS: Clear to auscultation. CARDIOVASCULAR: Regular rate and rhythm. Normal S1 and S2. No murmurs. ABDOMEN: Normoactive bowel sounds, soft, nontender, nondistended. EXTREMITIES: No edema. NEUROLOGIC: Awake, alert and oriented x 3. No focal motor deficits. LABORATORY DATA: WBC 7.1 with 72% neutrophils, hemoglobin 8.5, hematocrit 28, platelets 418, MCV 64. Sodium 136, potassium 4, chloride 104, bicarb 25, BUN 13, creatinine 0.7, glucose 110. INR 1.1. Iron 12, TIBC 448. CEA 206. CA-125 pending. ASSESSMENT: The patient is an 82-year-old woman with a past medical history of hyperlipidemia and anxiety disorder who presented for evaluation of a 2 month history of abdominal pain, bloating, cramping and alterations in bowel habits and was admitted for workup of likely metastatic colorectal cancer. PLAN: 1. 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 Imaging studies reviewed. CEA is markedly elevated. Dr. Vasquez has been consulted for further evaluation. Dr. Braswell has been consulted for surgical evaluation. 2. Hepatic lesions, likely representing metastatic colorectal cancer. Input from Dr. Braswell noted. Should the patient be deemed a candidate for surgical resection she would be an intermediate risk candidate for a high-risk procedure and may proceed to the OR without further cardiopulmonary workup. 3. Iron-deficiency anemia, likely secondary to metastatic colorectal cancer. Continue to monitor CBC and transfuse as needed. 4. Anxiety disorder. Resume Xanax 0.5 mg p.o. b.i.d. p.r.n. anxiety. 5. Hyperlipidemia. Resume Lipitor 40 mg p.o. daily. 6. Prophylaxis. Continue with Protonix for GI prophylaxis and Heparin for DVT prophylaxis. CODE STATUS: Full code. Charles He MD [facility] # [id number]
[2018-10-22 13:23] LABS: FERRITIN 8.1 ng/mL
--- NOTE | 2018-10-22 16:32 | CARD ---
APPROVED REPORT Date of service: 10/21/2018 EKG Measurement Heart [id number] <Conclusion> Normal sinus rhythm Nonspecific ST and T wave abnormality
[2018-10-22] MEDS ORDERED: Magnesium Hydroxide Susp 30 ml UD PO ONE ×2 (18:00→21:00)
--- NOTE | 2018-10-23 02:00 | CON ---
DATE: 10/22/2018 This is a [facility] consult on the remote telemetry floor. Oncology. For Dr. Barlow. CHIEF COMPLAINT: Abdominal pain. HISTORY OF PRESENT ILLNESS: The patient is an 82-year-old female seeing sitting up in bed with recent evaluations in for abdominal discomfort, originally seen for this problem on 09/03/2018, when she was admitted for viral gastroenteritis with a CT of the abdomen done without contrast showing no acute pathology. Upon review of her CT scan of the abdomen and pelvis done on 09/03/2018, the impression was no acute intraabdominal findings with unremarkable bowel, no obstruction, no growth, mural thickening, mild constipation, again without contrast. The patient was then discharged home with recommendations for followup with the patient requesting discharge home due to family issues after her symptoms were improved. The patient then was seen on 10/12/2018, with intermittent pain and nausea of approximately five weeks' time with testing then done including an ultrasound of the abdomen showing two masses in the left lobe of the liver with the patient again improving and anemic indices being noted with the patient then being discharged home. She then had a CT scan of chest, abdomen and pelvis with IV contrast for her hepatic mass noted on 10/14/2018, with the impression of two separate hypodense masses in the lateral segment of the left lobe of the liver measuring 15 x 57 mm and 30 x 32 mm, finding suspicious for either metastatic or primarily malignancy. Again, the bowel was unremarkable. No obstruction. No gross mural thickening with IV contrast. The patient then had another CT of the abdomen and pelvis done on 10/21/2018, two days prior this time showing redemonstration of annual neoplasm in the distal plasm in the distal transverse colon splenic flexure associated with fluid in the proximal colon. No significant change of the liver masses. She was then admitted with surgical evaluation now by Dr. Vela and Dr. Jay with initial consideration for procedures with possible resection of liver metastases suspected with left hemicolectomy being entertained at that time. However, after reconsideration the patient will now be prepared for surgery with no liver resection due to obstruction after a conversation with Dr. Vasquez, physical exam and also review of her CT scans. The patient at present is nauseated with strict clear liquid as tolerated after advancement of diet from n.p.o. with adjustment of her medications also done as per Dr. Barlow's recommendation. The patient was also advised initially to have a colonoscopy, which she refused along with tissue diagnosis biopsy recommended, which the patient again was hesitant to allow. However, now after a lengthy discussion she is willing to have testing and treatment as per Dr. He's and other clinicians' recommendations. ALLERGIES: ALLERGIES TO CODEINE, MEPERIDINE, STRAWBERRIES, MELONS, SPICY FOODS, TOMATOES, AND FLU VACCINE ? THE PATIENT CANNOT REMEMBER SPECIFICALLY AND TO THIS END SHE WAS GIVEN DILAUDID IV FOR HER PAIN, WHICH IMPROVED HER PAIN SIGNIFICANTLY SHE REPORTS. PAST MEDICAL HISTORY: Significant for insomnia, hyperlipidemia, anxiety, status cholecystectomy, status post cataract surgery. SOCIAL HISTORY: Denies smoking or EtOH use. FAMILY HISTORY: The patient has one son, four daughters, two in [place], two in [place] with the one son recently dying of drug overdose she reports and her daughters also in treatment with substance abuse histories, causing her increased anxiety. She otherwise had a male friend who also recently causing increased stress in her life. REVIEW OF SYSTEMS: A 12-point review of systems was done which was negative to questions except for items mentioned in the history of present illness. PHYSICAL EXAMINATION VITAL SIGNS: Temperature 98.3, pulse 78, blood pressure 135/67, pulse ox 98%. HEENT: Unremarkable. Tongue is dry. NECK: Supple. HEART: Regular rate. LUNGS: Clear. ABDOMEN: Soft with minimal tenderness to gentle palpation on the right with radiation to the left side of the mid lower abdomen. EXTREMITIES: No edema. SKIN: Warm and dry. NEUROLOGICAL: Awake and alert. LABORATORY DATA: The patient's labs were done; white blood cell count is 7.1, hemoglobin 8.5, hematocrit of 28.4, platelet count of 418,000 with a metabolic panel within normal range with an iron saturation of 3%. A CA-125 was noted to be 26.3, alpha-fetoprotein of 4.2; however, CA value is 206. Urinalysis was negative for blood sugar protein. INR of 1.12. The patient's testing was as described as above with a chest x-ray done two days prior, it was read as no active disease with an EKG done one day prior, that was read as normal sinus rhythm, nonspecific ST-T wave abnormality. ASSESSMENT: For this patient is that of bowel obstruction secondary to suspected neoplastic change to distal transverse colon with likely hepatic metastases with abnormal CA value. Iron deficiency anemia secondary to gastrointestinal bleed from above, hyperlipidemia, anxiety. PLAN: The plan for this patient after conversations with Dr. Barlow and Dr. Vasquez is to continue present medical regimen; however, we will discontinue Benadryl 50 mg IV every 4 hours at this time. We will also recommend transfusion of 2 units of packed red blood cells after consent was obtained for blood transfusion by myself with explanation of the need and the possible precautions necessary with adverse effects also and this was evaluated. We will give Tylenol, Benadryl and Solu-Cortef premedications and then 2 units of packed red blood cells slowly over 3 hours each unit of blood. We will also give oxygen 2 liters nasal cannula and we will advance her diet to clear liquid diet again after conversation with Dr. Vasquez, gastrointestinal client development consultant with further recommendations as per surgical team, Dr. Vela, as liver lesions will not be disturbed as per original consideration by Dr. Jay's surgical team. We will continue analgesics along with heparin subcutaneously for deep venous thrombosis prophylaxis with Zofran as needed for nausea and vomiting and Xanax. The patient also reported dizziness possibly related to her Dilaudid dose with the consideration for meclizine to be given. However, the patient is now on Zofran, we will see if the Zofran along with the other changes as above will obviate the need for medications for dizziness at this time. We will monitor clinically and with labs. This is a complex patient with a comprehensive medically necessary and appropriate visit carried out in excess of 95 minutes with the patient's questions answered to her satisfaction at length with conversations held with nursing staff and with Dr. Vasquez as above. Issac Kimball MD
[2018-10-23] MEDS: Lactated Ringer's 1,000 ML IV SCH ×4 (06:14→21:04)
--- NOTE | 2018-10-23 07:40 | CP.PCM.PN ---
Subjective - Date & Time of Evaluation Date of Evaluation: 10/23/18 Time of Evaluation: 07:39 - Subjective Subjective: Kendall Mcmahan DO, PGY-1 Hematology/Oncology Progress Note for Dr. Barlow Patient was seen and examined at bedside this AM. She reports feeling well and has no additional complaints at this time. Patient and her daughter were able to speak to Dr. Vela and surgical team earlier today. Patient is now agreeable to colonoscopy on Friday and surgery on . She denies fever/chills, CP, SOB, worsened abd pain/nausea/vomiting, or urinary complaints. Objective - Vital Signs/Intake and Output Vital Signs (last 24 hours): Temp Pulse Resp BP Pulse Ox 98.2 F 70 19 165/79 H 98 10/23/18 06:13 10/23/18 06:13 10/23/18 06:13 10/23/18 06:13 10/21/18 21:30 Intake and Output: 10/23/18 10/23/18 06:59 18:59 Intake Total 1493 Balance 1493 - Medications Medications: Current Medications Alprazolam (Xanax) 0.25 mg PO BID PRN; Protocol PRN Reason: Anxiety Heparin Sodium (Porcine) (Heparin) 5,000 units SC Q8 [facility]; Protocol Last Admin: 10/23/18 05:14 Dose: Not Given Hydromorphone HCl (Dilaudid) 0.5 mg IVP Q3H PRN PRN Reason: Pain, severe (8-10) Last Admin: 10/22/18 17:40 Dose: 0.5 mg Lactated Ringer's (Lactated Ringer's) 1,000 mls @ 100 mls/hr IV .Q10H [facility] Last Admin: 10/23/18 06:14 Dose: 100 mls/hr Magnesium Hydroxide (Milk Of Magnesia) 30 ml PO DAILY [facility] Ondansetron HCl (Zofran Inj) 4 mg IVP Q4H PRN PRN Reason: Nausea/Vomiting Last Admin: 10/22/18 10:14 Dose: 4 mg Pantoprazole Sodium (Protonix Inj) 40 mg IVP DAILY [facility] Last Admin: 10/22/18 10:14 Dose: 40 mg - Labs Labs: 10/22/18 06:00 10/22/18 06:00 PT 12.6 SECONDS (9.4-12.5) H 10/22/18 06:00 INR 1.12 10/22/18 06:00 - Constitutional Appears: Non-toxic, No Acute Distress - Head Exam Head Exam: ATRAUMATIC, NORMOCEPHALIC - Eye Exam Eye Exam: EOMI, PERRL - ENT Exam ENT Exam: Mucous Membranes Moist - Neck Exam Neck Exam: Full ROM, Normal Inspection - Respiratory Exam Respiratory Exam: Clear to Ausculation Bilateral, NORMAL BREATHING PATTERN. absent: Rales, Rhonchi, Wheezes - Cardiovascular Exam Cardiovascular Exam: REGULAR RHYTHM, RRR, +S1, +S2. absent: Gallop, Rubs, Murmur - GI/Abdominal Exam GI & Abdominal Exam: Soft, Normal Bowel Sounds. absent: Tenderness - Extremities Exam Extremities Exam: Full ROM. absent: Pedal Edema - Back Exam Back Exam: NORMAL INSPECTION - Neurological Exam Neurological Exam: Alert, Awake, Oriented x3 - Psychiatric Exam Psychiatric exam: Normal Affect, Normal Mood - Skin Skin Exam: Dry, Intact, Warm Assessment and Plan - Assessment and Plan (Free Text) Assessment: 82 yo F with PMH of anxiety who admitted for liver lesions found on abdominal US recently, and for continued abdominal pain, emesis and diarrhea. She was found on CTAP on admission to have annular neoplasm in the distal transverse colon/splenic flexure w/associated fluid in proximal colon. She also had 2 heterogenous masses in the lateral segment of L hepatic lobe. Plan: L transverse colon mass w/hepatic masses Suspect colon primary with liver metastases, given elevated CEA Will need biopsy for tissue diagnosis to determine proper chemotherapy regimen Test for KRAS, SILKE, BRAF oncogene activity, microsatellite instability (MSI), and PDL-[address] Vela, Dr. Vasquez, and Dr. Blandon following Colonoscopy scheduled for Friday Plan on OR for L hemicolectomy with liver bx next Per Dr. Blandon, patient is not a candidate for liver resection Continue zofran PRN for nausea Thank you for this interesting consult, we will continue to follow. Patient seen, examined with, and plan discussed with my attending Dr. Cain Mcmahan, DO IM Resident PGY-1
[2018-10-23 08:16] LABS: BASO # 0.01 K/mm3 (0.0-2.0); BASO % 0.1 % (0.0-3.0); EOS % 0.1 % (1.5-5.0); LYMPH # 1.2 (1.2-3.4); MEAN CORPUSCULAR HEMOGLOBIN 21.7 pg (25.0-35.0); MEAN CORPUSCULAR HGB CONC 31.5 g/dl (31.0-37.0); MEAN PLATELET VOLUME 8.8 fl (7.0-11.0); MONO # 0.8 (0.1-0.6); MONO % 9.2 % (1.0-6.0); RBC 4.89 10^6/uL (3.5-6.1); RED CELL DISTRIBUTION WIDTH 24.4 % (11.5-14.5); WHITE BLOOD COUNT 8.9 10^3/uL (4.5-11.0)
[2018-10-23 08:20] LABS: HEMOGLOBIN 10.6 g/dL (12.0-16.0); MEAN CELL VOLUME 68.7 fl (80.0-105.0)
--- NOTE | 2018-10-23 08:21 | CP.PCM.PN ---
<Kunal Olson - Last Filed: 10/23/18 18:08> Subjective - Date & Time of Evaluation Date of Evaluation: 10/23/18 Time of Evaluation: 07:18 - Subjective Subjective: Kunal Olson PGY2 GI Progress Note for Dr. Vasquez Patient was seen and examined at bedside. Lengthy discussion was had with her regarding her different treating teams and current plans. It was explained that patient has full autonomy regarding procedures, but that it is important for her to be evaluated and a proper medical plan carried out. The patient is agreeable to colonoscopy at this time, and we will plan accordingly. She does state that she has not had a BM and that she has episodes of nausea, but denies any vomiting, fevers/chills. Objective - Vital Signs/Intake and Output Vital Signs (last 24 hours): Temp Pulse Resp BP Pulse Ox 98.2 F 70 19 165/79 H 98 10/23/18 06:13 10/23/18 06:13 10/23/18 06:13 10/23/18 06:13 10/21/18 21:30 Intake and Output: 10/23/18 10/23/18 06:59 18:59 Intake Total 1493 Balance 1493 - Medications Medications: Current Medications Alprazolam (Xanax) 0.25 mg PO BID PRN; Protocol PRN Reason: Anxiety Heparin Sodium (Porcine) (Heparin) 5,000 units SC Q8 [facility]; Protocol Last Admin: 10/23/18 05:14 Dose: Not Given Hydromorphone HCl (Dilaudid) 0.5 mg IVP Q3H PRN PRN Reason: Pain, severe (8-10) Last Admin: 10/22/18 17:40 Dose: 0.5 mg Lactated Ringer's (Lactated Ringer's) 1,000 mls @ 100 mls/hr IV .Q10H [facility] Last Admin: 10/23/18 06:14 Dose: 100 mls/hr Magnesium Hydroxide (Milk Of Magnesia) 30 ml PO DAILY [facility] Ondansetron HCl (Zofran Inj) 4 mg IVP Q4H PRN PRN Reason: Nausea/Vomiting Last Admin: 10/22/18 10:14 Dose: 4 mg Pantoprazole Sodium (Protonix Inj) 40 mg IVP DAILY [facility] Last Admin: 10/22/18 10:14 Dose: 40 mg - Labs Labs: 10/22/18 06:00 10/22/18 06:00 PT 12.6 SECONDS (9.4-12.5) H 10/22/18 06:00 INR 1.12 10/22/18 06:00 - Constitutional Appears: Well, Non-toxic, No Acute Distress - Head Exam Head Exam: ATRAUMATIC, NORMAL INSPECTION, NORMOCEPHALIC - Eye Exam Eye Exam: EOMI, Normal appearance, PERRL Pupil Exam: NORMAL ACCOMODATION, PERRL - ENT Exam ENT Exam: Mucous Membranes Moist, Normal Exam - Neck Exam Neck Exam: Full ROM, Normal Inspection. absent: Lymphadenopathy - Respiratory Exam Respiratory Exam: Clear to Ausculation Bilateral, NORMAL BREATHING PATTERN. absent: Respiratory Distress - Cardiovascular Exam Cardiovascular Exam: REGULAR RHYTHM, +S1, +S2. absent: Murmur - GI/Abdominal Exam GI & Abdominal Exam: Soft, Normal Bowel Sounds. absent: Distended, Tenderness - Extremities Exam Extremities Exam: Full ROM, Normal Capillary Refill, Normal Inspection. absent: Joint Swelling, Pedal Edema - Neurological Exam Neurological Exam: Alert, Awake, Normal Gait, Oriented x3 - Skin Skin Exam: Dry, Intact, Normal Color, Warm Assessment and Plan - Assessment and Plan (Free Text) Assessment: 82 year old female with a PMH of HLD and anxiety who is admitted for liver lesions found on abdominal US recently, and for continued abdominal pain, emesis and diarrhea. CT Abd/pelvis reviewed showing a mass in the splenic flexure, and 2 liver masses; pancreas has no lesions. Anemia is noted but stable. Plan: - patient will require colonoscopy for further evaluation and possible management (eg. colonic stent), currently agreeable - discussed with Surgery team regarding plan for colonoscopy on Friday and OR w/ surgical team later in the week - will prep for colonoscopy for Friday - plans discussed with Oncology team and family members (daughters Megha and Kassi) - will discuss w/ PMD - monitor H/H - liquid diet as tolerated - zofran prn n/v - further recs per Dr. Vasquez Case was reviewed and discussed with Dr. Vasquez <Norma Vasquez V - Last Filed: 10/23/18 19:33> Objective - Vital Signs/Intake and Output Vital Signs (last 24 hours): Temp Pulse Resp BP Pulse Ox 98 F 62 19 167/76 H 99 10/23/18 16:55 10/23/18 18:00 10/23/18 16:55 10/23/18 16:55 10/23/18 16:55 - Medications Medications: Current Medications Alprazolam (Xanax) 0.25 mg PO BID PRN; Protocol PRN Reason: Anxiety Heparin Sodium (Porcine) (Heparin) 5,000 units SC Q8 [facility]; Protocol Last Admin: 10/23/18 15:04 Dose: Not Given Hydromorphone HCl (Dilaudid) 0.5 mg IVP Q3H PRN PRN Reason: Pain, severe (8-10) Last Admin: 10/23/18 16:27 Dose: 0.5 mg Lactated Ringer's (Lactated Ringer's) 1,000 mls @ 100 mls/hr IV .Q10H [facility] Last Admin: 10/23/18 10:41 Dose: Not Given Magnesium Hydroxide (Milk Of Magnesia) 30 ml PO DAILY [facility] Last Admin: 10/23/18 10:41 Dose: 30 ml Ondansetron HCl (Zofran Inj) 4 mg IVP Q4H PRN PRN Reason: Nausea/Vomiting Last Admin: 10/22/18 10:14 Dose: 4 mg Pantoprazole Sodium (Protonix Inj) 40 mg IVP DAILY [facility] Last Admin: 10/23/18 10:41 Dose: 40 mg - Labs Labs: 10/23/18 08:00 10/23/18 08:00 PT 12.6 SECONDS (9.4-12.5) H 10/22/18 06:00 INR 1.12 10/22/18 06:00 Attending/Attestation - Attestation I have personally seen and examined this patient.: Yes I have fully participated in the care of the patient.: Yes I have reviewed all pertinent clinical information, including history, physical exam and plan: Yes Notes (Text): This patient was seen and evaluated earlier along with the resident is an addendum to the GI progress report dictated by the administrative medical director. Discussed with the patient and also patient's daughters who were at bedside. Patient on liquid diet plan to have gentle bowel clearance over the weekend and colonoscopy on Friday with the patient is able to tolerate a gentle bowel preparation as per the surgery. Discussed with the Dr. Moncada earlier today. Patient is planned for OR early next week 10/23/18 19:31
[2018-10-23 08:27] LABS: ALBUMIN 3.5 g/dL (3.0-4.8); ALT/SGPT 20 U/L (7-56); AST/SGOT 29 U/L (14-36); BLOOD UREA NITROGEN 13 mg/dL (7-21); GFR NON-AFRICAN AMERICAN > 60
--- NOTE | 2018-10-23 09:13 | CP.PCM.PN ---
Subjective - Date & Time of Evaluation Date of Evaluation: 10/23/18 Time of Evaluation: 09:11 - Subjective Subjective: Nataliia Portillo PGY1 Progress Note for Dr. Vela Pt was examined at bedside this morning. Treatment options and plan were dis cussed with patient at length. Pt reports nausea and mild abdominal pain this morning. She denies fever, chills, vomiting, diarrhea. Objective - Vital Signs/Intake and Output Vital Signs (last 24 hours): Temp Pulse Resp BP Pulse Ox 98.2 F 70 19 165/79 H 99 10/23/18 06:13 10/23/18 06:13 10/23/18 06:13 10/23/18 06:13 10/23/18 06:00 Intake and Output: 10/23/18 10/23/18 06:59 18:59 Intake Total 1493 Balance 1493 - Medications Medications: Current Medications Alprazolam (Xanax) 0.25 mg PO BID PRN; Protocol PRN Reason: Anxiety Heparin Sodium (Porcine) (Heparin) 5,000 units SC Q8 [facility]; Protocol Last Admin: 10/23/18 05:14 Dose: Not Given Hydromorphone HCl (Dilaudid) 0.5 mg IVP Q3H PRN PRN Reason: Pain, severe (8-10) Last Admin: 10/22/18 17:40 Dose: 0.5 mg Lactated Ringer's (Lactated Ringer's) 1,000 mls @ 100 mls/hr IV .Q10H [facility] Last Admin: 10/23/18 06:14 Dose: 100 mls/hr Magnesium Hydroxide (Milk Of Magnesia) 30 ml PO DAILY [facility] Ondansetron HCl (Zofran Inj) 4 mg IVP Q4H PRN PRN Reason: Nausea/Vomiting Last Admin: 10/22/18 10:14 Dose: 4 mg Pantoprazole Sodium (Protonix Inj) 40 mg IVP DAILY [facility] Last Admin: 10/22/18 10:14 Dose: 40 mg - Labs Labs: 10/23/18 08:00 10/23/18 08:00 PT 12.6 SECONDS (9.4-12.5) H 10/22/18 06:00 INR 1.12 10/22/18 06:00 - Constitutional Appears: Well, No Acute Distress - Head Exam Head Exam: ATRAUMATIC, NORMOCEPHALIC - Eye Exam Eye Exam: EOMI, Normal appearance - ENT Exam ENT Exam: Mucous Membranes Moist - Neck Exam Neck Exam: Normal Inspection - Respiratory Exam Respiratory Exam: NORMAL BREATHING PATTERN. absent: Respiratory Distress - GI/Abdominal Exam GI & Abdominal Exam: Soft. absent: Distended, Guarding, Tenderness - Back Exam Back Exam: NORMAL INSPECTION - Neurological Exam Neurological Exam: Alert, Awake, Oriented x3 - Psychiatric Exam Psychiatric exam: Normal Affect, Normal Mood - Skin Skin Exam: Normal Color Assessment and Plan - Assessment and Plan (Free Text) Assessment: 82yo F with PMHx of Anxiety, HLD here with a nearly obstructing colonic mass at splenic flexure and masses at L hepatic lobe Plan: - IVF - Antiemetics prn - pain control - DVT ppx - continue gentle bowel prep for now - colonoscopy for 10/26 - Medical optimization and clearance as per PMD appreciated - f/u Batch Room Technician recommendations to optimize status prior to surgery - will need full bowel prep prior to surgery next week - plan for OR next week Further recs as per Dr. Vela
[2018-10-23] MEDS: Magnesium Hydroxide Susp 30 ml UD PO SCH (10:41)
--- NOTE | 2018-10-23 12:31 | PN ---
DATE: 10/23/2018 SUBJECTIVE: The patient is in room 371 bed two. Three of her daughters were present in the room. She has no complaints. There have been no acute events overnight. PHYSICAL EXAMINATION: VITAL SIGNS: Temperature of 98.2, pulse rate of 70, blood pressure 165/79, respiratory rate of 19 with an O2 saturation of 99% on room air. HEENT: PERRLA. EOMI. No icterus present. NECK: Supple with full range of motion. There is no jugular venous distention or bruits appreciated. LUNGS: Clear to auscultation and percussion bilaterally. HEART: Regular rate and rhythm. ABDOMEN: Soft, nontender, no palpable masses. Bowel sounds are normoactive. EXTREMITIES: Show no deformities or edema. NEUROLOGIC: No focal motor deficits are present. LABORATORY FINDINGS: Hemoglobin and hematocrit of 10.6 and 33.6. Chemistry is essentially normal with the exception of a random glucose of 121. CEA is high at 206. Microbiology urine shows no growth. ASSESSMENT AND PLAN: The patient will be taken for a colonoscopy by Dr. Vasquez. She was also seen by Dr. Rogers. Current diagnosis is, 1. Colonic mass. 2. Liver masses. 3. Anemia. We will continue with current workup including a colonoscopy with tissue biopsy. Hilario He MD
[2018-10-23] MEDS: HYDROmorphone 0.5 mg/0.5 ml ISec IVP PRN ×3 (13:07→20:28)
[2018-10-24] MEDS: Lactated Ringer's 1,000 ML IV SCH ×2 (05:00→16:43)
[2018-10-24 08:31] LABS: ALB/GLOB RATIO 1.1 (1.1-1.8); ALBUMIN 3.3 g/dL (3.0-4.8); ALT/SGPT 58 U/L (7-56); AST/SGOT 125 U/L (14-36); BLOOD UREA NITROGEN 11 mg/dL (7-21); CALCIUM 8.7 mg/dL (8.4-10.5); GFR NON-AFRICAN AMERICAN > 60
[2018-10-24 08:41] LABS: BASO # 0.03 K/mm3 (0.0-2.0); BASO % 0.4 % (0.0-3.0); EOS # 0.1 (0.0-0.7); EOS % 1.1 % (1.5-5.0); HEMOGLOBIN 10.4 g/dL (12.0-16.0); LYMPH # 0.8 (1.2-3.4); LYMPH % 9.5 % (22.0-35.0); MEAN CELL VOLUME 69.5 fl (80.0-105.0); MEAN CORPUSCULAR HEMOGLOBIN 21.6 pg (25.0-35.0); MEAN PLATELET VOLUME 9.5 fl (7.0-11.0); MONO # 0.8 (0.1-0.6); MONO % 9.5 % (1.0-6.0); RBC 4.82 10^6/uL (3.5-6.1); RED CELL DISTRIBUTION WIDTH 24.5 % (11.5-14.5); WHITE BLOOD COUNT 8.1 10^3/uL (4.5-11.0)
--- NOTE | 2018-10-24 10:20 | CP.PCM.PN ---
Subjective - Date & Time of Evaluation Date of Evaluation: 10/24/18 Time of Evaluation: 07:00 - Subjective Subjective: Surgery Progress note. Dr. Vela Pt seen and examined at bedside this morning. States that she is starting to have nausea. Denies any severe abdominal pain. Has received milk of mag and enema yesterday without any BMs since the past 3 days. No fevers or chills. Objective - Vital Signs/Intake and Output Vital Signs (last 24 hours): Temp Pulse Resp BP Pulse Ox 97.8 F 59 L 18 147/66 94 L 10/24/18 06:00 10/24/18 06:00 10/24/18 06:00 10/24/18 06:00 10/24/18 06:00 Intake and Output: 10/24/18 10/24/18 06:59 18:59 Intake Total 180 Balance 180 - Medications Medications: Current Medications Alprazolam (Xanax) 0.25 mg PO BID PRN; Protocol PRN Reason: Anxiety Heparin Sodium (Porcine) (Heparin) 5,000 units SC Q8 [facility]; Protocol Last Admin: 10/24/18 05:16 Dose: 5,000 units Hydromorphone HCl (Dilaudid) 0.5 mg IVP Q3H PRN PRN Reason: Pain, severe (8-10) Last Admin: 10/23/18 20:28 Dose: 0.5 mg Lactated Ringer's (Lactated Ringer's) 1,000 mls @ 100 mls/hr IV .Q10H [facility] Last Admin: 10/24/18 05:00 Dose: 100 mls/hr Potassium Chloride (Potassium Chloride 10 Meq/100 Ml) 10 meq in 100 mls @ 100 mls/hr IVPB Q2H [facility] Stop: 10/24/18 12:44 Amino Acids (Clinimix 4.25/5 % "E" (1000 Ml)) 1,000 mls @ 42 mls/hr IV .[id number] [facility] Magnesium Hydroxide (Milk Of Magnesia) 30 ml PO DAILY [facility] Last Admin: 10/23/18 10:41 Dose: 30 ml Ondansetron HCl (Zofran Inj) 4 mg IVP Q4H PRN PRN Reason: Nausea/Vomiting Last Admin: 10/24/18 08:20 Dose: 4 mg Pantoprazole Sodium (Protonix Inj) 40 mg IVP DAILY [facility] Last Admin: 10/23/18 10:41 Dose: 40 mg - Labs Labs: 10/24/18 07:00 10/24/18 07:00 PT 12.6 SECONDS (9.4-12.5) H 10/22/18 06:00 INR 1.12 10/22/18 06:00 - Constitutional Appears: Well, Non-toxic, No Acute Distress - Head Exam Head Exam: ATRAUMATIC, NORMAL INSPECTION, NORMOCEPHALIC - Eye Exam Eye Exam: EOMI, Normal appearance. absent: Scleral icterus - ENT Exam ENT Exam: Mucous Membranes Moist - Respiratory Exam Respiratory Exam: NORMAL BREATHING PATTERN. absent: Accessory Muscle Use, Respiratory Distress - Cardiovascular Exam Cardiovascular Exam: RRR. absent: JVD - GI/Abdominal Exam GI & Abdominal Exam: Soft. absent: Distended, Firm, Guarding, Tenderness, Rebound - Extremities Exam Extremities Exam: Normal Inspection. absent: Calf Tenderness - Neurological Exam Neurological Exam: Alert, Awake, Normal Gait, Oriented x3 - Psychiatric Exam Psychiatric exam: Normal Affect, Normal Mood - Skin Skin Exam: Dry, Intact, Normal Color, Warm Assessment and Plan - Assessment and Plan (Free Text) Assessment: 82yo F with PMHx of Anxiety, HLD here with a nearly obstructing colonic mass at splenic flexure and masses at L hepatic lobe Plan: - PPN today to optimize patient's nutritional status - Antiemetics prn - Pain control - IVF - monitor and replete electrolytes as needed - Continue gentle laxitives; Dulcolax supp today - f/u GI recs: possible colonoscopy Friday, 10/26 - Will plan for surgery next week Further recs as per Dr. Dane Hunter PGY2 surgery
[2018-10-24] MEDS: Magnesium Hydroxide Susp 30 ml UD PO SCH (10:42)
--- NOTE | 2018-10-24 11:28 | PN ---
SUBJECTIVE: The patient was seen and examined at bedside on the general medical [facility]. She is s/p transfusion of 2 units of PRBCs with an appropriate response in hemoglobin. No adverse events noted with her transfusion. This morning she feels well but continues to endorse poor appetite and mild abdominal cramping but otherwise offers no complaints. OBJECTIVE: VITAL SIGNS: Temperature 97.8, pulse 59, blood pressure 147/66, respiratory rate 18, oxygen saturation 94% on 2 liters nasal cannula. GENERAL: No apparent distress. HEENT: PERRL, EOMI. No scleral icterus. Mild conjunctival pallor is noted. NECK: No JVD. No bruits. LUNGS: Clear to auscultation. CARDIOVASCULAR: Regular rate and rhythm. Normal S1, S2. No murmurs. ABDOMEN: Normoactive bowel sounds, soft, nondistended. Tender to palpation to lower abdomen with voluntary guarding. EXTREMITIES: No edema. NEUROLOGIC: Awake, alert and oriented x 3. No focal motor deficits. LABORATORY DATA: WBC 8, hemoglobin 10, hematocrit 34, platelets 328, MCV 69. Sodium 134, potassium 3.2, chloride 98, bicarb 29, BUN 11, creatinine 0.6, glucose 99. AST 125, ALT 58. ASSESSMENT: The patient is an 82-year-old woman with a past medical history of hyperlipidemia and anxiety disorder who presented for evaluation of a 2 month history of abdominal pain, bloating, cramping and changes in bowel habits and was admitted for workup of likely metastatic colorectal cancer. PLAN: 1. 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 Input from Dr. Vasquez noted and the patient is pending colonoscopy. Input from Dr. Vela, Dr. Braswell and Dr. Kimball also noted. We will continue with current care. 2. Hepatic lesions, likely representing metastatic colorectal cancer. As above, input from the various consultants noted. Continue with care as per #1. 3. Iron-deficiency anemia, likely secondary to metastatic colorectal cancer. The patient is s/p transfusion of 2 units of PRBCs with an appropriate response in hemoglobin. We will continue to monitor CBC daily and transfuse as needed. 4. Anxiety disorder. Continue Xanax 0.5 mg p.o. b.i.d. 5. Hyperlipidemia. Continue Lipitor 40 mg p.o daily. 6. Prophylaxis. Continue Protonix for GI prophylaxis and Heparin for DVT prophylaxis. Code status full code. Charles He MD VON
[2018-10-24] MEDS ORDERED: Iron Sucrose 100 mg/5 ml Inj IVP ONE (13:38)
[2018-10-24] MEDS ORDERED: POLYETHYLENE GLYCOL 3350 17 GM/Dose PACKET PO ONE (14:29)
--- NOTE | 2018-10-24 17:25 | PN ---
DATE: 10/24/2018 This is [facility] [place] [facility] visit on the medical floor. For Dr. Barlow. SUBJECTIVE: The patient is an 82-year-old female seen sitting up in bed with family at the bedside, now being prepped for surgery early next week for a colon lesion with her anemic indices improved after transfusion of two units of packed red blood cells with Venofer to be given for her low percent iron saturation. She denies any bleeding at this time with minimal discomfort to the right mid lower quadrant as her only complaint, with GI evaluation to proceed on Friday after the patient being convinced of the need for testing prior to procedures, with tissue diagnosis optimal if possible. There is consideration for early obstruction as the need for surgery for her suspected GI malignancy. PHYSICAL EXAMINATION: VITAL SIGNS: Temperature 97.8, pulse 59, respirations 18, blood pressure 147/60, pulse ox 94%. HEENT: Unremarkable. Tongue is moist. NECK: Supple. HEART: Jean Paul rate, regular rhythm. LUNGS: Clear. ABDOMEN: Soft with minimal tenderness to gentle palpation of the right mid lower quadrant. EXTREMITIES: No edema. SKIN: Warm and dry. NEUROLOGICAL: Awake and alert. LABORATORY DATA: The patient's labs were done. White blood cell count 8.1; hemoglobin 10.4; after transfusion of two units of packed red blood cells, her hemoglobin was 8.5 two days prior; hematocrit 69.5; platelet count 328,000. Metabolic panel shows a potassium of 3.2, being corrected with an AST of 125, ALT of 58. Earlier testing showed a CEA value of 206, with a CA-125 of 26.3 and alpha-fetoprotein of 4.2. We will now order a CA 19-9 test. ASSESSMENT: For this patient is that of bowel obstruction secondary to suspected neoplastic change to distal transverse colon with likely hepatic metastases with an abnormal CEA value, iron deficiency anemia secondary to gastrointestinal bleed status post transfusion, hyperlipidemia, anxiety. PLAN: The plan for this patient, after conversation with Dr. Barlow, is to continue present medical regimen. We will give Venofer. We will order for a CA 19-9 value, it will be tested with her electrolytes to be corrected. It was also noted that hyperalimentation was begun despite the patient been on a clear liquid diet with IV fluids to be held once hyperalimentation is begun after conversation with nursing staff. This is a complex patient with a comprehensive medically necessary and appropriate visit carried out in excess of 20 minutes with the patient and her daughter from [place]'s questions answered to their satisfaction with the prognosis for this patient guarded with surgery plan for next week after esophagogastroduodenoscopy colonoscopy with hopeful tissue diagnosis as possible earlier in the week. Issac Kimball MD
[2018-10-24] MEDS: HYDROmorphone 0.5 mg/0.5 ml ISec IVP PRN (22:45)
--- NOTE | 2018-10-25 00:54 | PN ---
DATE: 10/24/2018 SUBJECTIVE: Patient was seen and evaluated earlier today. Patient's daughter is at bedside. Patient was feeling hungry, wants to eat solid food. PHYSICAL EXAMINATION VITAL SIGNS: Temperature is 98, pulse 58, blood pressure 157/88. HEENT: Atraumatic and anicteric. NECK: Supple. HEART: S1 and S2 heard. LUNGS: Bilateral air entry present. ABDOMEN: Soft. The tenderness has significantly improved. EXTREMITIES: No cyanosis. No clubbing. No edema. LABORATORY DATA: Hemoglobin 10.4, hematocrit 33.5, WBC 8.1, and platelets 328. BUN 10, creatinine 0.6, AST 125, and ALT 58. IMPRESSION AND PLAN: This 82-year-old patient admitted with partial colonic obstruction with distal transverse colon narrowing probably related to the neoplastic process with multiple hepatic lesions. Patient is on gentle laxatives as per Surgery. The present plan is to consider colonoscopy on Friday. Patient has not had any bowel movements yet. Patient is on only milk of magnesia. If the patient does not have any significant bowel movements tomorrow, we will discuss with Surgery regarding further enemas and also GoLYTELY preparation, would like to have MiraLax preparation. Discussed with Surgery team earlier and the plan was to consider colonoscopy before the colon resection. I also discussed with the patient's family at length earlier. Thank you very much for allowing me to participate in the care of the patient. Norma Vasquez MD
[2018-10-25 07:51] LABS: BASO # 0.02 K/mm3 (0.0-2.0); BASO % 0.3 % (0.0-3.0); EOS # 0.1 (0.0-0.7); EOS % 1.6 % (1.5-5.0); HEMOGLOBIN 10.2 g/dL (12.0-16.0); LYMPH # 0.9 (1.2-3.4); LYMPH % 12.9 % (22.0-35.0); MEAN CELL VOLUME 69.6 fl (80.0-105.0); MEAN CORPUSCULAR HEMOGLOBIN 21.1 pg (25.0-35.0); MEAN CORPUSCULAR HGB CONC 30.4 g/dl (31.0-37.0); MEAN PLATELET VOLUME 9.4 fl (7.0-11.0); MONO # 0.6 (0.1-0.6); MONO % 8.3 % (1.0-6.0); RBC 4.83 10^6/uL (3.5-6.1); RED CELL DISTRIBUTION WIDTH 24.8 % (11.5-14.5); WHITE BLOOD COUNT 6.7 10^3/uL (4.5-11.0)
[2018-10-25 08:36] LABS: ALB/GLOB RATIO 1.2 (1.1-1.8); ALBUMIN 3.6 g/dL (3.0-4.8); ALT/SGPT 124 U/L (7-56); AST/SGOT 157 U/L (14-36); BLOOD UREA NITROGEN 11 mg/dL (7-21); CALCIUM 8.8 mg/dL (8.4-10.5); GFR NON-AFRICAN AMERICAN > 60
[2018-10-25] MEDS: Magnesium Hydroxide Susp 30 ml UD PO SCH (09:14)
[2018-10-25] MEDS ORDERED: Potassium Chloride 20 mEq ER Tab PO ONE (10:30)
--- NOTE | 2018-10-25 10:32 | CP.PCM.PN ---
Subjective - Date & Time of Evaluation Date of Evaluation: 10/25/18 Time of Evaluation: 07:00 - Subjective Subjective: Surgery Progress note. Dr. Vela Pt seen and examined at bedside. No acute events overnight. States that she has been having large BMs yesterday. Denies any N/V. States abd distention improved. No new complaints. Objective - Vital Signs/Intake and Output Vital Signs (last 24 hours): Temp Pulse Resp BP Pulse Ox 97.8 F 60 20 148/77 94 L 10/25/18 06:00 10/25/18 10:00 10/25/18 06:00 10/25/18 06:00 10/25/18 06:00 Intake and Output: 10/25/18 10/25/18 06:59 18:59 Intake Total 200 Balance 200 - Medications Medications: Current Medications Acetaminophen (Tylenol 325mg Tab) 650 mg PO Q4H PRN PRN Reason: Pain, Mild (1-3) Alprazolam (Xanax) 0.25 mg PO BID PRN; Protocol PRN Reason: Anxiety Heparin Sodium (Porcine) (Heparin) 5,000 units SC Q8 [facility]; Protocol Last Admin: 10/25/18 06:06 Dose: 5,000 units Hydromorphone HCl (Dilaudid) 0.5 mg IVP Q3H PRN PRN Reason: Pain, severe (8-10) Last Admin: 10/24/18 22:45 Dose: 0.5 mg Amino Acids (Clinimix 4.25/5 % "E" (1000 Ml)) 1,000 mls @ 42 mls/hr IV .[id number] [facility] Magnesium Hydroxide (Milk Of Magnesia) 30 ml PO DAILY [facility] Last Admin: 10/25/18 09:14 Dose: 30 ml Ondansetron HCl (Zofran Inj) 4 mg IVP Q4H PRN PRN Reason: Nausea/Vomiting Last Admin: 10/25/18 09:13 Dose: 4 mg Pantoprazole Sodium (Protonix Inj) 40 mg IVP DAILY [facility] Last Admin: 10/25/18 09:14 Dose: 40 mg - Labs Labs: 10/25/18 07:00 10/25/18 07:00 PT 12.6 SECONDS (9.4-12.5) H 10/22/18 06:00 INR 1.12 10/22/18 06:00 - Constitutional Appears: Well, Non-toxic, No Acute Distress - Head Exam Head Exam: ATRAUMATIC, NORMAL INSPECTION, NORMOCEPHALIC - Eye Exam Eye Exam: EOMI, Normal appearance - ENT Exam ENT Exam: Mucous Membranes Moist - Respiratory Exam Respiratory Exam: NORMAL BREATHING PATTERN. absent: Accessory Muscle Use, Respiratory Distress - Cardiovascular Exam Cardiovascular Exam: absent: JVD - GI/Abdominal Exam GI & Abdominal Exam: Soft. absent: Distended, Firm, Guarding, Rebound - Extremities Exam Extremities Exam: Normal Inspection. absent: Calf Tenderness - Neurological Exam Neurological Exam: Alert, Awake, Oriented x3 - Psychiatric Exam Psychiatric exam: Normal Affect, Normal Mood - Skin Skin Exam: Dry, Intact, Normal Color, Warm Assessment and Plan - Assessment and Plan (Free Text) Assessment: 82yo F with PMHx of Anxiety, HLD here with a nearly obstructing colonic mass at splenic flexure and masses at L hepatic lobe Plan: - Continue PPN - Antiemetics prn - Pain control - IVF - monitor and replete electrolytes as needed - f/u GI recs: possible colonoscopy Friday, 10/26 - Plan for OR next week; will need bowel prep prior Further recs as per Dr. Dane Hunter PGY2 surgery
[2018-10-25] MEDS ORDERED: Iron Sucrose 100 mg/5 ml Inj IVP ONE (12:00)
[2018-10-25] MEDS ORDERED: NuLYTELY (NACL/NAHCO3/KCL/PEG) 4L PO ONE (15:21)
--- NOTE | 2018-10-25 19:37 | PN ---
DATE: 10/25/2018 This is [facility] on the medical floor. For Dr. Barlow. SUBJECTIVE: The patient is an 82-year-old female now awaiting gastrointestinal evaluation along with planned surgery later this week for a known partial colonic obstruction of significant narrowing probable neoplastic process with tissue diagnosis to be obtained with recommendation of a colonoscopy prior to colon resection. The patient was significantly anemic with transfusion with good effect three days prior with percent saturations of iron significantly low with IV iron be given yesterday and today, with this being monitored. Today, the patient has family members at the bedside including a daughter from [place] and a daughter from [place] with the patient reporting significant improvement of her right mid-abdominal discomfort; however, she is not taking clear liquids well as she reports gurgling sounds in that area; however, no pain, and she was recommended to encourage clear liquids otherwise, hyperalimentation continues to be given as per primary doctor. OBJECTIVE PHYSICAL EXAMINATION VITAL SIGNS: Temperature 97.8, pulse 68, respirations 20, blood pressure 148/77, pulse ox 98%. HEENT: Unremarkable. NECK: Supple. HEART: Regular rate. LUNGS: Clear. ABDOMEN: Minimal tenderness to the right mid abdomen. EXTREMITIES: No edema. SKIN: Warm and dry. NEUROLOGIC: Awake and alert. LABORATORY DATA: The patient's labs were done. White blood cells count is 6.7,hemoglobin 10.2, hematocrit 33.6, platelet count of 352,000 with a metabolic panel showing a potassium of 3.3, which is to be replenished. Her AST is 157, ALT is 124. Her CA 19-9 antigen is now reported at 40.3, normal being up to 37 with a CA value noted to be 206 with a normal value being below 3, highly suspicious for a neoplastic process of the gastrointestinal system. As previously mentioned, the patient's iron saturation was at 3% three days ago. The urine culture showed no growth from three days prior. ASSESSMENT: For this patient is that of suspected neoplasm of the distal transverse colon with early bowel obstruction with hepatic metastases, abnormal CA 19-9 values, iron deficiency anemia secondary to gastrointestinal bleed, status post transfusion for anemic indices, hyperlipidemia, anxiety, hypokalemia. PLAN: The plan for this patient; after conversation with Dr. Barlow and Dr. Vasquez, is to continue present medical regimen with plans for gastrointestinal evaluation tomorrow with tissue diagnosis as possible with planned surgical intervention later in a week with Dr. Vela, with possible surgery at the end of early next week. This is a complex patient with a comprehensive medically necessary and appropriate visit carried out in excess of 20 minutes with the patient's questions answered to her satisfaction along with questions from the patient's two daughters from different states at the bedside. Issac Kimball MD
[2018-10-25] MEDS: HYDROmorphone 0.5 mg/0.5 ml ISec IVP PRN (21:31)
[2018-10-26 06:41] LABS: BASO # 0.02 K/mm3 (0.0-2.0); BASO % 0.3 % (0.0-3.0); EOS # 0.1 (0.0-0.7); EOS % 1.7 % (1.5-5.0); HEMOGLOBIN 10.1 g/dL (12.0-16.0); LYMPH # 1.1 (1.2-3.4); LYMPH % 15.1 % (22.0-35.0); MEAN CELL VOLUME 70.3 fl (80.0-105.0); MEAN CORPUSCULAR HEMOGLOBIN 21.3 pg (25.0-35.0); MEAN CORPUSCULAR HGB CONC 30.2 g/dl (31.0-37.0); MEAN PLATELET VOLUME 9.3 fl (7.0-11.0); MONO # 0.7 (0.1-0.6); RBC 4.75 10^6/uL (3.5-6.1); RED CELL DISTRIBUTION WIDTH 25.4 % (11.5-14.5); WHITE BLOOD COUNT 7.3 10^3/uL (4.5-11.0)
[2018-10-26 07:28] LABS: INR 1.17; PROTHROMBIN TIME 13.2 SECONDS (9.4-12.5)
[2018-10-26 07:33] LABS: ALB/GLOB RATIO 1.1 (1.1-1.8); ALBUMIN 3.4 g/dL (3.0-4.8); ALT/SGPT 111 U/L (7-56); AST/SGOT 97 U/L (14-36); BLOOD UREA NITROGEN 12 mg/dL (7-21); CALCIUM 8.9 mg/dL (8.4-10.5); GFR NON-AFRICAN AMERICAN > 60
--- NOTE | 2018-10-26 07:52 | CP.PCM.PN ---
Subjective - Date & Time of Evaluation Date of Evaluation: 10/26/18 Time of Evaluation: 07:51 - Subjective Subjective: Kendall Mcmahan DO, PGY-1 Hematology/Oncology Progress Note for Dr. Barlow Patient was seen and examined at bedside this AM. She reports no new complaints this AM and states she feels fine. She has been tolerating colonoscopy prep well and is scheduled for this afternoon. Objective - Vital Signs/Intake and Output Vital Signs (last 24 hours): Temp Pulse Resp BP Pulse Ox 97.8 F 58 L 18 152/69 H 95 10/26/18 00:00 10/26/18 02:00 10/26/18 00:00 10/26/18 00:00 10/26/18 00:00 Intake and Output: 10/26/18 10/26/18 06:59 18:59 Intake Total 504 Balance 504 - Medications Medications: Current Medications Acetaminophen (Tylenol 325mg Tab) 650 mg PO Q4H PRN PRN Reason: Pain, Mild (1-3) Alprazolam (Xanax) 0.25 mg PO BID PRN; Protocol PRN Reason: Anxiety Heparin Sodium (Porcine) (Heparin) 5,000 units SC Q8 [facility]; Protocol Last Admin: 10/26/18 05:38 Dose: 5,000 units Hydromorphone HCl (Dilaudid) 0.5 mg IVP Q3H PRN PRN Reason: Pain, severe (8-10) Last Admin: 10/25/18 21:31 Dose: 0.5 mg Amino Acids (Clinimix 4.25/5 % "E" (1000 Ml)) 1,000 mls @ 42 mls/hr IV .[id number] [facility] Last Admin: 10/25/18 18:43 Dose: 42 mls/hr Magnesium Hydroxide (Milk Of Magnesia) 30 ml PO DAILY [facility] Last Admin: 10/25/18 09:14 Dose: 30 ml Ondansetron HCl (Zofran Inj) 4 mg IVP Q4H PRN PRN Reason: Nausea/Vomiting Last Admin: 10/25/18 09:13 Dose: 4 mg Pantoprazole Sodium (Protonix Inj) 40 mg IVP DAILY [facility] Last Admin: 10/25/18 09:14 Dose: 40 mg - Labs Labs: 10/26/18 05:30 10/26/18 05:30 PT 13.2 SECONDS (9.4-12.5) H 10/26/18 05:30 INR 1.17 10/26/18 05:30 - Constitutional Appears: Non-toxic, No Acute Distress - Head Exam Head Exam: ATRAUMATIC, NORMOCEPHALIC - Eye Exam Eye Exam: EOMI, PERRL - ENT Exam ENT Exam: Mucous Membranes Moist - Neck Exam Neck Exam: Full ROM. absent: Lymphadenopathy, Thyromegaly - Respiratory Exam Respiratory Exam: Clear to Ausculation Bilateral, NORMAL BREATHING PATTERN. absent: Rales, Rhonchi, Wheezes - Cardiovascular Exam Cardiovascular Exam: REGULAR RHYTHM, RRR, +S1, +S2. absent: Gallop, Rubs, Murmur - GI/Abdominal Exam GI & Abdominal Exam: Soft, Tenderness (mild tenderness LLQ), Normal Bowel Sounds. absent: Guarding - Extremities Exam Extremities Exam: Full ROM. absent: Pedal Edema - Back Exam Back Exam: NORMAL INSPECTION - Neurological Exam Neurological Exam: Alert, Awake, Oriented x3 - Psychiatric Exam Psychiatric exam: Normal Affect, Normal Mood - Skin Skin Exam: Dry, Intact, Warm Assessment and Plan - Assessment and Plan (Free Text) Assessment: 82 yo F with PMH of anxiety who admitted for liver lesions found on abdominal US recently, and for continued abdominal pain, emesis and diarrhea. She was found on CTAP on admission to have annular neoplasm in the distal transverse colon/splenic flexure w/associated fluid in proximal colon. She also had 2 heterogenous masses in the lateral segment of L hepatic lobe. Plan: L transverse colon mass w/hepatic masses Suspect colon primary with liver metastases, given elevated CEA Will need biopsy for tissue diagnosis to determine proper chemotherapy regimen Test for KRAS, SILKE, BRAF oncogene activity, microsatellite instability (MSI), and PDL-1 markers on pathology once obtained Dr. Vela, Dr. Vasquez, and Dr. Blandon following Colonoscopy scheduled for today Plan on OR for L hemicolectomy with probable liver bx next Per Dr. Blandon, patient is not a candidate for resection of liver lesions Continue zofran PRN for nausea Thank you for this interesting consult, we will continue to follow. Patient seen, examined with, and plan discussed with my attending Dr. Cain Mcmahan, IM Resident PGY-1
[2018-10-26] MEDS ORDERED: Potassium Chloride 20 mEq ER Tab PO ONE (07:55)
--- NOTE | 2018-10-26 09:11 | PN ---
DATE: 10/25/2018 SUBJECTIVE: This patient was seen and evaluated earlier. The patient's family was at bedside. The patient finally started moving her bowels, liquid stool. No complaints of any abdominal pain. PHYSICAL EXAMINATION: VITAL SIGNS: Temperature remains afebrile 97.8, pulse 72, blood pressure is 148/77. HEENT: Atraumatic, anicteric. NECK: Supple. HEART: S1 and S2 heard. LUNGS: Bilateral air entry present. ABDOMEN: Soft. There is no tenderness. EXTREMITIES: No cyanosis. No clubbing. NEUROLOGIC: Alert, oriented. Moves all extremities. LABORATORY DATA: Hemoglobin 10.2, hematocrit 33.6, WBC 6.7, platelets 352. Chemistry shows elevated LFTs, AST 157, ALT 124, alkaline phosphatase 176. CA 19-9 40.3 mildly elevated and CEA is elevated to 206. The patient's INR is 1.12. IMPRESSION: This is an 82-year-old patient with partial colonic obstruction in the distal transverse colon, the narrowing probably related to the neoplastic process with multiple hepatic lesions, now started moving her bowels with gentle laxative regimen. The patient is scheduled for a colonoscopy tomorrow. We will start the patient on GoLYTELY regimen half a gallon today. Continue the clear liquid diet. Discussed with the surgical team earlier. The patient does have mildly elevated LFTs, which shows an upward trend, the etiology is unclear. Alkaline phosphatase is gradually showing an upward trend along with the transaminases. RECOMMENDATIONS: 1. Baseline profile. 2. Ultrasound of the abdomen to rule out any tension to the gallbladder and CBD to rule out any cholelithiasis. The patient is scheduled for a colonoscopy. We will repeat the PT, INR level. Thank you very much for allowing me to participate in the care of this patient. Norma Vasquez MD
--- NOTE | 2018-10-26 09:11 | CP.PCM.PN ---
Subjective - Date & Time of Evaluation Date of Evaluation: 10/26/18 Time of Evaluation: 09:08 - Subjective Subjective: Nataliia Portillo PGY1 Progress Note for Dr. Vela Pt was examined at bedside this morning. She has no complaints today. No acute overnight events. Objective - Vital Signs/Intake and Output Vital Signs (last 24 hours): Temp Pulse Resp BP Pulse Ox 97.9 F 63 20 151/79 H 95 10/26/18 08:38 10/26/18 08:38 10/26/18 08:38 10/26/18 08:38 10/26/18 08:38 Intake and Output: 10/26/18 10/26/18 06:59 18:59 Intake Total 504 Balance 504 - Medications Medications: Current Medications Acetaminophen (Tylenol 325mg Tab) 650 mg PO Q4H PRN PRN Reason: Pain, Mild (1-3) Alprazolam (Xanax) 0.25 mg PO BID PRN; Protocol PRN Reason: Anxiety Heparin Sodium (Porcine) (Heparin) 5,000 units SC Q8 [facility]; Protocol Last Admin: 10/26/18 05:38 Dose: 5,000 units Hydromorphone HCl (Dilaudid) 0.5 mg IVP Q3H PRN PRN Reason: Pain, severe (8-10) Last Admin: 10/25/18 21:31 Dose: 0.5 mg Amino Acids (Clinimix 4.25/5 % "E" (1000 Ml)) 1,000 mls @ 42 mls/hr IV .[id number] [facility] Last Admin: 10/25/18 18:43 Dose: 42 mls/hr Magnesium Hydroxide (Milk Of Magnesia) 30 ml PO DAILY [facility] Last Admin: 10/25/18 09:14 Dose: 30 ml Ondansetron HCl (Zofran Inj) 4 mg IVP Q4H PRN PRN Reason: Nausea/Vomiting Last Admin: 10/25/18 09:13 Dose: 4 mg Pantoprazole Sodium (Protonix Inj) 40 mg IVP DAILY [facility] Last Admin: 10/25/18 09:14 Dose: 40 mg - Labs Labs: 10/26/18 05:30 10/26/18 05:30 PT 13.2 SECONDS (9.4-12.5) H 10/26/18 05:30 INR 1.17 10/26/18 05:30 - Constitutional Appears: Well, No Acute Distress - Head Exam Head Exam: ATRAUMATIC, NORMOCEPHALIC - Eye Exam Eye Exam: EOMI, Normal appearance - Respiratory Exam Respiratory Exam: NORMAL BREATHING PATTERN. absent: Respiratory Distress - GI/Abdominal Exam GI & Abdominal Exam: Soft. absent: Distended, Guarding, Tenderness - Extremities Exam Extremities Exam: Normal Inspection - Neurological Exam Neurological Exam: Alert, Awake, Oriented x3 - Psychiatric Exam Psychiatric exam: Normal Affect, Normal Mood - Skin Skin Exam: Normal Color Assessment and Plan - Assessment and Plan (Free Text) Assessment: 82yo F with PMHx of Anxiety, HLD here with a nearly obstructing colonic mass at splenic flexure and masses at L hepatic lobe Plan: - f/u colonoscopy results for today - Antiemetics prn - Pain control - IVF - monitor and replete electrolytes as needed - Plan for OR this week; will need bowel prep prior Further recs as per Dr. Vela
[2018-10-26] MEDS: Magnesium Hydroxide Susp 30 ml UD PO SCH (09:18)
[2018-10-26] MEDS ORDERED: Sodium Chloride 0.9% 1,000 ML IV SCH (15:45)
[2018-10-26] MEDS ORDERED: Propofol 10 mg/ml Inj (20 ML) ONE (15:52)
[2018-10-26] MEDS: HYDROmorphone 0.5 mg/0.5 ml ISec IVP PRN (21:37)
--- NOTE | 2018-10-26 21:56 | PN ---
SUBJECTIVE: The patient was seen and examined at the bedside on the general medical manley. No acute events overnight. She remains afebrile, hemodynamically stable and largely clinically unchanged. She is pending colonoscopy later today to further evaluate the mass in her distal transverse colon which likely represents colorectal cancer. OBJECTIVE: VITAL SIGNS: Temperature 97.9, pulse 60, blood pressure 134/73, respiratory rate 20, and oxygen saturation 99% on room air. GENERAL: No apparent distress. HEENT: PERRL, EOMI. No scleral icterus. Mild conjunctival pallor is noted. NECK: No JVD. No bruits. LUNGS: Clear to auscultation. CARDIOVASCULAR: Regular rate and rhythm. Normal S1 and S2. No murmurs. ABDOMEN: Normoactive bowel sounds, soft, and nondistended. Tender to palpation to lower abdomen with voluntary guarding. EXTREMITIES: No edema. NEUROLOGIC: Awake, alert, and oriented x 3. No focal motor deficits. LABORATORY DATA: WBC 7.3 with 73% neutrophils, hemoglobin 10, hematocrit 33, platelets 339, and MCV 70. Sodium 138, potassium 3.3, chloride 103, bicarb 30, BUN 12, creatinine 0.6, and glucose 110. AST 97, ALT 111 and alk phos 156. ASSESSMENT: The patient is an 82-year-old woman with a past medical history of hyperlipidemia and anxiety disorder who presented for evaluation of a 2 month history of abdominal pain, bloating, cramping and changes in bowel habits and was admitted for workup of likely metastatic colorectal cancer. PLAN: 1. 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 Input from Dr. Vasquez noted and the patient is scheduled for colonoscopy today. Input from Dr. Vela, Dr. Braswell, and Dr. Kimball also noted. We will continue with current care. 2. Hepatic lesions, likely representing metastatic colorectal cancer. As above, input from the various consultants noted. Continue with care as per #1. 3. Iron-deficiency anemia, likely secondary to metastatic colorectal cancer. Continue to monitor CBC daily and transfuse as needed. 4. Anxiety disorder. Continue Xanax 0.5 mg p.o. b.i.d. 5. Hyperlipidemia. Continue Lipitor 40 mg p.o. daily. 6. Prophylaxis. Continue Protonix for GI prophylaxis and Heparin for DVT prophylaxis. CODE STATUS: Full code. Charles He MD [facility] # [id number] VON
--- NOTE | 2018-10-27 07:34 | CP.PCM.PN ---
<Kunal Olson - Last Filed: 10/27/18 17:24> Subjective - Date & Time of Evaluation Date of Evaluation: 10/27/18 Time of Evaluation: 07:33 - Subjective Subjective: Kunal Olson PGY2 GI Progress Note for Dr. Vasquez Patient was seen and examined at bedside. Patient's abdomen is soft, and she is tolerating her liquid diet well. Results of the colonoscopy were explained to her and the plan was discussed that we are awaiting surgery team's input moving further. Patient understands. Objective - Vital Signs/Intake and Output Vital Signs (last 24 hours): Temp Pulse Resp BP Pulse Ox 97.9 F 53 L 20 167/75 H 99 10/26/18 16:53 10/27/18 05:44 10/26/18 16:53 10/26/18 16:53 10/26/18 16:53 Intake and Output: 10/27/18 10/27/18 06:59 18:59 Intake Total 504 240 Balance 504 240 - Medications Medications: Current Medications Acetaminophen (Tylenol 325mg Tab) 650 mg PO Q4H PRN PRN Reason: Pain, Mild (1-3) Alprazolam (Xanax) 0.25 mg PO BID PRN; Protocol PRN Reason: Anxiety Heparin Sodium (Porcine) (Heparin) 5,000 units SC Q8 [facility]; Protocol Last Admin: 10/26/18 05:38 Dose: 5,000 units Hydromorphone HCl (Dilaudid) 0.5 mg IVP Q3H PRN PRN Reason: Pain, severe (8-10) Last Admin: 10/26/18 21:37 Dose: 0.5 mg Amino Acids (Clinimix 4.25/5 % "E" (1000 Ml)) 1,000 mls @ 42 mls/hr IV .[id number] [facility] Last Admin: 10/26/18 17:54 Dose: 42 mls/hr Magnesium Hydroxide (Milk Of Magnesia) 30 ml PO DAILY [facility] Last Admin: 10/26/18 09:18 Dose: 30 ml Ondansetron HCl (Zofran Inj) 4 mg IVP Q4H PRN PRN Reason: Nausea/Vomiting Last Admin: 10/25/18 09:13 Dose: 4 mg Pantoprazole Sodium (Protonix Inj) 40 mg IVP DAILY [facility] Last Admin: 10/26/18 09:18 Dose: 40 mg - Labs Labs: 10/26/18 05:30 10/26/18 05:30 PT 13.2 SECONDS (9.4-12.5) H 10/26/18 05:30 INR 1.17 10/26/18 05:30 - Constitutional Appears: Well, Non-toxic, No Acute Distress - Head Exam Head Exam: ATRAUMATIC, NORMAL INSPECTION, NORMOCEPHALIC - Eye Exam Eye Exam: EOMI, Normal appearance, PERRL Pupil Exam: NORMAL ACCOMODATION, PERRL - ENT Exam ENT Exam: Mucous Membranes Moist, Normal Exam - Neck Exam Neck Exam: Full ROM, Normal Inspection. absent: Lymphadenopathy - Respiratory Exam Respiratory Exam: Clear to Ausculation Bilateral, NORMAL BREATHING PATTERN. absent: Respiratory Distress - Cardiovascular Exam Cardiovascular Exam: REGULAR RHYTHM, +S1, +S2. absent: Murmur - GI/Abdominal Exam GI & Abdominal Exam: Soft, Normal Bowel Sounds. absent: Distended, Tenderness - Extremities Exam Extremities Exam: Full ROM, Normal Capillary Refill, Normal Inspection. absent: Joint Swelling, Pedal Edema - Neurological Exam Neurological Exam: Alert, Awake, Normal Gait, Oriented x3 - Skin Skin Exam: Dry, Intact, Normal Color, Warm Assessment and Plan - Assessment and Plan (Free Text) Assessment: 82 year old female with a PMH of HLD and anxiety who is admitted for liver lesions found on abdominal US recently, and for continued abdominal pain, emesis and diarrhea. CT Abd/pelvis reviewed showing a mass in the splenic flexure, and 2 liver masses; pancreas has no lesions. Anemia is noted but stable. s/p colonoscopy 10/26 in which scope could not be advanced due to transverse colon mass, which was biopsied. Plan: - cont CLD as tolerated - Will discuss w/ surgery team; planned for surgery thurs AM - monitor H/H - zofran prn n/v - PPI for GI ppx - further recs per Dr. Vasquez Case was reviewed and discussed with Dr. Vasquez <Norma Vasquez V - Last Filed: 10/27/18 23:42> Objective - Vital Signs/Intake and Output Vital Signs (last 24 hours): Temp Pulse Resp BP Pulse Ox 97.5 F L 74 18 122/72 97 10/27/18 08:42 04/02/19 21:32 10/27/18 08:42 10/27/18 21:32 10/27/18 08:42 Intake and Output: 10/27/18 10/28/18 18:59 06:59 Intake Total 2084 Output Total 950 Balance 1134 - Medications Medications: Current Medications Acetaminophen (Tylenol 325mg Tab) 650 mg PO Q4H PRN PRN Reason: Pain, Mild (1-3) Alprazolam (Xanax) 0.25 mg PO BID PRN; Protocol PRN Reason: Anxiety Diphenhydramine HCl (Benadryl) 50 mg IVP HS PRN PRN Reason: Allergy symptoms Erythromycin (Erythromycin) 500 mg PO Q6 [facility]; Protocol Stop: 10/29/18 00:01 Heparin Sodium (Porcine) (Heparin) 5,000 units SC Q8 [facility]; Protocol Last Admin: 10/27/18 21:31 Dose: 5,000 units Hydromorphone HCl (Dilaudid) 0.5 mg IVP Q3H PRN PRN Reason: Pain, severe (8-10) Last Admin: 10/26/18 21:37 Dose: 0.5 mg Amino Acids (Clinimix 4.25/5 % "E" (1000 Ml)) 1,000 mls @ 42 mls/hr IV .[id number] [facility] Last Admin: 10/27/18 17:29 Dose: 42 mls/hr Lactated Ringer's (Lactated Ringer's) 1,000 mls @ 85 mls/hr IV .[id number] [facility] Last Admin: 10/27/18 18:29 Dose: 85 mls/hr Magnesium Hydroxide (Milk Of Magnesia) 30 ml PO DAILY [facility] Last Admin: 10/27/18 09:12 Dose: Not Given Metoprolol Tartrate (Lopressor) 25 mg PO Q12 [facility] Last Admin: 10/27/18 21:32 Dose: Not Given Neomycin Sulfate (Neomycin Tab) 1,000 mg PO Q4H [facility] Stop: 10/29/18 02:01 Ondansetron HCl (Zofran Inj) 4 mg IVP Q4H PRN PRN Reason: Nausea/Vomiting Last Admin: 10/25/18 09:13 Dose: 4 mg Pantoprazole Sodium (Protonix Inj) 40 mg IVP DAILY [facility] Last Admin: 10/27/18 09:11 Dose: 40 mg - Labs Labs: 10/27/18 07:00 10/27/18 07:00 PT 13.2 SECONDS (9.4-12.5) H 10/26/18 05:30 INR 1.17 10/26/18 05:30 Attending/Attestation - Attestation I have personally seen and examined this patient.: Yes I have fully participated in the care of the patient.: Yes I have reviewed all pertinent clinical information, including history, physical exam and plan: Yes Notes (Text): This patient was seen and evaluated earlier along with medical i d sales. This is an addendum to the GI [place] report dictated by the resident. Status post a colonoscopy patient noticed in the transverse colon. LFT shows an upward trend. Etiology is unclear. Sonogram status post a cholecystectomy CBD normal. Request her baseline hepatitis profile. Patient does have multiple liver metastases. Would request MRCP to further evaluate if the LFTs shows upward trend. Patient is planned for or 10/27/18 23:41
[2018-10-27 07:35] LABS: BASO # 0.04 K/mm3 (0.0-2.0); BASO % 0.5 % (0.0-3.0); EOS # 0.2 (0.0-0.7); EOS % 2.2 % (1.5-5.0); HEMOGLOBIN 11.1 g/dL (12.0-16.0); LYMPH # 1.8 (1.2-3.4); LYMPH % 23.7 % (22.0-35.0); MEAN CELL VOLUME 71.1 fl (80.0-105.0); MEAN CORPUSCULAR HEMOGLOBIN 21.6 pg (25.0-35.0); MEAN CORPUSCULAR HGB CONC 30.3 g/dl (31.0-37.0); MEAN PLATELET VOLUME 9.6 fl (7.0-11.0); MONO # 0.7 (0.1-0.6); MONO % 9.6 % (1.0-6.0); RBC 5.15 10^6/uL (3.5-6.1); RED CELL DISTRIBUTION WIDTH 26.2 % (11.5-14.5); WHITE BLOOD COUNT 7.7 10^3/uL (4.5-11.0)
[2018-10-27 07:48] LABS: ALB/GLOB RATIO 1.1 (1.1-1.8); ALBUMIN 3.8 g/dL (3.0-4.8); ALT/SGPT 159 U/L (7-56); AST/SGOT 182 U/L (14-36); BLOOD UREA NITROGEN 12 mg/dL (7-21); CALCIUM 9.2 mg/dL (8.4-10.5); GFR NON-AFRICAN AMERICAN > 60
--- NOTE | 2018-10-27 08:22 | PN ---
DATE: 10/26/2018 SUBJECTIVE: The patient is an 82-year-old white female who is in room 371, bed 2. Has no complaints. She is alert and oriented x3. There have been no acute events overnight. PHYSICAL EXAMINATION: VITAL SIGNS: Include a temperature of 97.5, pulse rate of 60, blood pressure 142/70, and O2 saturation of 98% on room air. HEENT: PERRLA. EOMI. There is no icterus present. NECK: Supple with full range of motion. LUNGS: Clear to auscultation and percussion bilaterally. HEART: With a regular rate and rhythm. ABDOMEN: Soft. It is nontender. There are no masses palpable. No organomegaly. NEUROLOGICAL: The patient is intact. LABORATORY DATA: Shows a hemoglobin and hematocrit of 10.2 and 33.6 with MCV of 69.6, MCH of 21.1 and MCHC of 30.4. Chemistry shows a potassium of 3.3, AST 157, ALT of 124, alk phos of 176. CA19-9 is 40.3. The patient will be brought for a colonoscopy for a biopsy of the lesion in the transverse colon. CURRENT PROBLEM LIST: 1. Abdominal pain. 2. Anemia. 3. Liver mass. 4. Colonic mass. Hilario He MD
--- NOTE | 2018-10-27 08:44 | US ---
Date of service: 10/27/2018 HISTORY: elevated AST/ALT/ALP COMPARISON: None. TECHNIQUE: Sonographic evaluation of the abdomen. FINDINGS: LIVER: Measures 17.1 cm. Normal echogenicity of the liver parenchyma. Two heterogeneously echogenic masses in the left lobe of the liver, 4.5 x 4.6 x 4.8 cm and 4.2 x 5.1 x 6.1 cm. No significant change from 10/12/2018. smooth contour. No biliary ductal dilatation. GALLBLADDER: Cholecystectomy COMMON BILE DUCT: Measures 6 mm. No stones. No dilatation. PANCREAS: Unremarkable as visualized. No mass. No ductal dilatation. RIGHT KIDNEY: Measures 11.2cm. Normal echogenicity. No calculus, mass, or hydronephrosis. LEFT KIDNEY: Measures 11.0cm. Normal echogenicity. No calculus, mass, or hydronephrosis. SPLEEN: Normal in size and contour. No mass. AORTA: No aneurysmal dilatation. IVC: Unremarkable. OTHER FINDINGS: None. IMPRESSION: Two solid masses in the left lobe of the liver. Possible malignancies. Status post cholecystectomy. No other significant abnormality.
--- NOTE | 2018-10-27 09:07 | CP.PCM.PN ---
Subjective - Date & Time of Evaluation Date of Evaluation: 10/27/18 Time of Evaluation: 09:06 - Subjective Subjective: Nataliia Portillo PGY1 Progress Note for Dr. Vela Patient was examined at bedside this morning. She reports passing some flatus this morning. She denies any further bowel movements since the colonoscopy yesterday. She denies fever, chills, abdominal pain, nausea, or vomiting. No acute events overnight. Objective - Vital Signs/Intake and Output Vital Signs (last 24 hours): Temp Pulse Resp BP Pulse Ox 97.5 F L 84 18 149/76 97 10/27/18 08:42 10/27/18 08:42 10/27/18 08:42 10/27/18 08:42 10/27/18 08:42 Intake and Output: 10/27/18 10/27/18 06:59 18:59 Intake Total 504 240 Balance 504 240 - Medications Medications: Current Medications Acetaminophen (Tylenol 325mg Tab) 650 mg PO Q4H PRN PRN Reason: Pain, Mild (1-3) Alprazolam (Xanax) 0.25 mg PO BID PRN; Protocol PRN Reason: Anxiety Heparin Sodium (Porcine) (Heparin) 5,000 units SC Q8 [facility]; Protocol Last Admin: 10/26/18 05:38 Dose: 5,000 units Hydromorphone HCl (Dilaudid) 0.5 mg IVP Q3H PRN PRN Reason: Pain, severe (8-10) Last Admin: 10/26/18 21:37 Dose: 0.5 mg Amino Acids (Clinimix 4.25/5 % "E" (1000 Ml)) 1,000 mls @ 42 mls/hr IV .[id number] [facility] Last Admin: 10/26/18 17:54 Dose: 42 mls/hr Magnesium Hydroxide (Milk Of Magnesia) 30 ml PO DAILY [facility] Last Admin: 10/26/18 09:18 Dose: 30 ml Ondansetron HCl (Zofran Inj) 4 mg IVP Q4H PRN PRN Reason: Nausea/Vomiting Last Admin: 10/25/18 09:13 Dose: 4 mg Pantoprazole Sodium (Protonix Inj) 40 mg IVP DAILY [facility] Last Admin: 10/26/18 09:18 Dose: 40 mg Potassium Chloride (K-Dur 20 Meq Er Tab) 40 meq PO ONCE ONE Stop: 10/27/18 10:01 - Labs Labs: 10/27/18 07:00 10/27/18 07:00 PT 13.2 SECONDS (9.4-12.5) H 10/26/18 05:30 INR 1.17 10/26/18 05:30 - Constitutional Appears: Well, No Acute Distress - Head Exam Head Exam: ATRAUMATIC, NORMOCEPHALIC - Eye Exam Eye Exam: EOMI, Normal appearance - ENT Exam ENT Exam: Mucous Membranes Moist - Neck Exam Neck Exam: Full ROM - Respiratory Exam Respiratory Exam: NORMAL BREATHING PATTERN. absent: Respiratory Distress - GI/Abdominal Exam GI & Abdominal Exam: Soft. absent: Distended, Firm, Guarding, Rigid, Tenderness - Extremities Exam Extremities Exam: Normal Inspection - Neurological Exam Neurological Exam: Alert, Awake, Oriented x3 - Psychiatric Exam Psychiatric exam: Normal Affect, Normal Mood - Skin Skin Exam: Normal Color Assessment and Plan - Assessment and Plan (Free Text) Assessment: 82yo F with PMHx of Anxiety, HLD here with a nearly obstructing colonic mass at splenic flexure and masses at L hepatic lobe Plan: - s/p colonoscopy showing malignant mass in transverse colon - f/u biopsy results - Antiemetics prn - Pain control - IVF - monitor and replete electrolytes as needed - bowel prep tonight - Plan for OR 4/4 Further recs as per Dr. Vela
[2018-10-27] MEDS: Magnesium Hydroxide Susp 30 ml UD PO SCH (09:12)
[2018-10-27] MEDS ORDERED: DiphenhydrAMINE 50 mg/ml Inj IVP PRN (09:28)
--- NOTE | 2018-10-27 09:37 | CP.PCM.PN ---
Subjective - Date & Time of Evaluation Date of Evaluation: 10/27/18 Time of Evaluation: 09:35 - Subjective Subjective: Kendall Mcmahan DO, PGY-1 Hematology/Oncology Progress Note for Dr. Barlow Patient was seen and examined at bedside this AM. She reports no new complaints and states she tolerated colonoscopy well yesterday. She denies fever/chills, CP, SOB, abd pain/nausea/vomiting/diarrhea, or new urinary complaints. Objective - Vital Signs/Intake and Output Vital Signs (last 24 hours): Temp Pulse Resp BP Pulse Ox 97.5 F L 84 18 149/76 97 10/27/18 08:42 10/27/18 08:42 10/27/18 08:42 10/27/18 08:42 10/27/18 08:42 Intake and Output: 10/27/18 10/27/18 06:59 18:59 Intake Total 504 240 Balance 504 240 - Medications Medications: Current Medications Acetaminophen (Tylenol 325mg Tab) 650 mg PO Q4H PRN PRN Reason: Pain, Mild (1-3) Alprazolam (Xanax) 0.25 mg PO BID PRN; Protocol PRN Reason: Anxiety Diphenhydramine HCl (Benadryl) 50 mg IVP HS PRN PRN Reason: Allergy symptoms Heparin Sodium (Porcine) (Heparin) 5,000 units SC Q8 [facility]; Protocol Last Admin: 10/26/18 05:38 Dose: 5,000 units Hydromorphone HCl (Dilaudid) 0.5 mg IVP Q3H PRN PRN Reason: Pain, severe (8-10) Last Admin: 10/26/18 21:37 Dose: 0.5 mg Amino Acids (Clinimix 4.25/5 % "E" (1000 Ml)) 1,000 mls @ 42 mls/hr IV .[id number] [facility] Last Admin: 10/26/18 17:54 Dose: 42 mls/hr Magnesium Hydroxide (Milk Of Magnesia) 30 ml PO DAILY [facility] Last Admin: 10/27/18 09:12 Dose: Not Given Ondansetron HCl (Zofran Inj) 4 mg IVP Q4H PRN PRN Reason: Nausea/Vomiting Last Admin: 10/25/18 09:13 Dose: 4 mg Pantoprazole Sodium (Protonix Inj) 40 mg IVP DAILY [facility] Last Admin: 10/27/18 09:11 Dose: 40 mg Potassium Chloride (K-Dur 20 Meq Er Tab) 40 meq PO ONCE ONE Stop: 10/27/18 10:01 Last Admin: 10/27/18 09:11 Dose: 40 meq - Labs Labs: 10/27/18 07:00 10/27/18 07:00 PT 13.2 SECONDS (9.4-12.5) H 10/26/18 05:30 INR 1.17 10/26/18 05:30 - Constitutional Appears: Non-toxic, No Acute Distress - Head Exam Head Exam: ATRAUMATIC, NORMOCEPHALIC - Eye Exam Eye Exam: EOMI, PERRL - ENT Exam ENT Exam: Mucous Membranes Moist - Neck Exam Neck Exam: Full ROM. absent: Lymphadenopathy, Tenderness - Respiratory Exam Respiratory Exam: Clear to Ausculation Bilateral, NORMAL BREATHING PATTERN. absent: Rales, Rhonchi, Wheezes - Cardiovascular Exam Cardiovascular Exam: REGULAR RHYTHM, RRR, +S1, +S2. absent: Gallop, Rubs, Murmur - GI/Abdominal Exam GI & Abdominal Exam: Soft, Normal Bowel Sounds. absent: Guarding, Tenderness - Extremities Exam Extremities Exam: Full ROM. absent: Pedal Edema - Back Exam Back Exam: NORMAL INSPECTION - Neurological Exam Neurological Exam: Alert, Awake, Oriented x3 - Psychiatric Exam Psychiatric exam: Normal Affect, Normal Mood - Skin Skin Exam: Dry, Intact, Warm Assessment and Plan - Assessment and Plan (Free Text) Assessment: 82 yo F with PMH of anxiety who admitted for liver lesions found on abdominal US recently, and for continued abdominal pain, emesis and diarrhea. She was found on CTAP on admission to have annular neoplasm in the distal transverse colon/splenic flexure w/associated fluid in proximal colon. She also had 2 heterogenous masses in the lateral segment of L hepatic lobe. Plan: L transverse colon mass w/hepatic masses Suspect colon primary with liver metastases, given elevated CEA Will need tissue diagnosis to determine proper chemotherapy regimen, which will likely include FOLFOX backbone Test for KRAS, SILKE, BRAF oncogene activity, microsatellite instability (MSI), and PDL-1 markers on pathology once obtained Dr. Vela, Dr. Vasquez, and Dr. Blandon following Colonoscopy completed yesterday which identified large, partially obstructing mass in the transverse colon, biopsies were taken Abdomen US completed showed two discrete hepatic masses Surgery team planning to take to OR for L hemicolectomy with probable liver bx Per Dr. Blandon, patient is not a candidate for resection of liver lesions given bi-lobar disease Continue zofran PRN for nausea Thank you for this interesting consult, we will continue to follow. Patient seen, examined with, and plan discussed with my attending Dr. Cain Mcmahan, IM Resident PGY-1
[2018-10-27] MEDS ORDERED: Potassium Chloride 20 mEq ER Tab PO ONE (10:00)
--- NOTE | 2018-10-27 12:53 | PN ---
SUBJECTIVE: The patient was seen and examined at bedside on the general medical manley. No acute events overnight. She remains afebrile, hemodynamically stable and is doing well s/p colonoscopy. This morning she feels okay and offers no complaints. OBJECTIVE: VITAL SIGNS: Temperature 97.5, pulse 84, blood pressure 149/76, respiratory rate 18, oxygen saturation 97% on room air. GENERAL: No apparent distress. HEENT: PERRL, EOMI. No scleral icterus. Mild conjunctival pallor is noted. NECK: No JVD, no bruits. LUNGS: Clear to auscultation. CARDIOVASCULAR: Regular rate and rhythm. Normal S1 and S2. No murmurs. ABDOMEN: Normoactive bowel sounds, soft, nondistended. Tender to palpation to lower abdomen with voluntary guarding. EXTREMITIES: No edema. NEUROLOGIC: Awake, alert and oriented x 3. No focal motor deficits. LABORATORY DATA: WBC 7.7 with 64% neutrophils, hemoglobin 11, hematocrit 36, platelets 386, MCV 71. Sodium 137, potassium 3.5, chloride 98, bicarb 30, BUN 12, creatinine 0.6, glucose 105. AST 182, ALT 159, alk phos 162. IMAGING STUDIES: 1. Abdominal ultrasound demonstrates two solid masses to the left lobe of the liver, likely representing malignancy. ASSESSMENT: The patient is an 82-year-old woman with a past medical history of hyperlipidemia and anxiety disorder who presented for evaluation of a 2 month history of abdominal pain, bloating, cramping and changes in bowel habits and was admitted for workup of likely metastatic colorectal cancer. PLAN: 1. 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 Input from Dr. Vasquez noted and colonoscopy findings reviewed. We will await final pathology reports. Surgical evaluation ongoing with Dr. Moncada. Input from Dr. Braswell and Dr. Kimball also noted. 2. Hepatic lesions, likely representing metastatic colorectal cancer. Continue with care as per #1. 3. Iron-deficiency anemia, likely secondary to metastatic colorectal cancer. Continue to monitor CBC daily and transfuse as needed. 4. Anxiety disorder. Continue Xanax 0.5 mg p.o. b.i.d. 5. Hyperlipidemia. Continue Lipitor 40 mg p.o. daily. 6. Prophylaxis. Continue Protonix for GI prophylaxis and Heparin for DVT prophylaxis. CODE STATUS: Full code. Charles He MD VON
[2018-10-27] MEDS ORDERED: NuLYTELY (NACL/NAHCO3/KCL/PEG) 4L PO ONE (18:00)
[2018-10-27] MEDS: Lactated Ringer's 1,000 ML IV SCH (18:29)
--- NOTE | 2018-10-27 21:00 | CON ---
DATE: 10/27/2018 LOCATION: Patient in room 371, bed 2. REASON FOR CONSULTATION: Patient needs colon surgery, so cardiac risk stratification. Patient known case of hyperlipidemia and anxiety. HISTORY OF PRESENT ILLNESS: Patient is an 82-year-old female who started having abdominal pain and diarrhea and weight loss. 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 Patient denies any chest pain, shortness of breath,or palpitations. Denies any history of cardiac problems. She says that before she got sick she was doing exercise for one hour at a [facility] without any chest pain, shortness of breath, or palpitations. PAST MEDICAL HISTORY: Positive for hyperlipidemia and anxiety. She had gallbladder surgery in the past and she has given for 5 children with natural . PERSONAL HISTORY: Denies smoking. She says that only she drinks rarely socially. ALLERGIES: PATIENT IS ALLERGIC TO FOOD ALLERGIES LIKE STRAWBERRIES, HONEYDEW, JEREMIE, AND CHERRIES. HOME MEDICATIONS: Patient was on Lipitor 40 daily and aspirin 81 mg daily. REVIEW OF SYSTEMS: All the systems reviewed. Positives mentioned in history, otherwise negative. PHYSICAL EXAMINATION VITAL SIGNS: Blood pressure 149/76, respirations 18, pulse 84, and temperature 99.5. HEENT: Head is normocephalic. Eyes; pupils normal. Conjunctiva normal. NECK: JVP low. Carotid equal. THORAX: AP diameter normal. LUNGS: Clear. CARDIOVASCULAR: S1 and S2. ABDOMEN: Soft. Bowel sounds normal. EXTREMITIES: No clubbing. No cyanosis. LABORATORY DATA: WBC 7.7, hemoglobin 11.1, hematocrit 36.6, and platelet 386. Sodium 137, potassium 3.5, BUN 12, creatinine 0.6. AST 182, ALT 159, alkaline phosphatase 162. Albumin is 3.8. Chest x-ray was clear. EKG showed regular sinus rhythm, nonspecific ST-T changes. 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 PLAN: Clinically, patient's cardiac status seemed to be stable. Especially, she has been doing exercises for about one hour without any cardiac symptoms. Patient's echo has been already requested to evaluate LV function. We will give extra potassium. We will repeat electrolytes in the morning. Actually, patient received already potassium 40 mEq p.o. today extra. We will add beta kingsley, metoprolol 25 mg b.i.d. to the therapy. From cardiac point of view, patient can go for surgery as a moderate risk. We will evaluate echocardiogram as soon as it is done. Clinically, cardiac status is stable at this point. We will follow with you. Salome Rogers MD
[2018-10-28] MEDS: ERYthromycin Base 250 MG DR Cap PO SCH ×4 (06:17→23:56)
[2018-10-28] MEDS: Lactated Ringer's 1,000 ML IV SCH ×2 (06:18→17:26)
[2018-10-28 06:45] LABS: BASO # 0.04 K/mm3 (0.0-2.0); BASO % 0.5 % (0.0-3.0); EOS # 0.1 (0.0-0.7); EOS % 1.8 % (1.5-5.0); HEMOGLOBIN 10.2 g/dL (12.0-16.0); LYMPH # 1.3 (1.2-3.4); LYMPH % 17.1 % (22.0-35.0); MEAN CELL VOLUME 70.9 fl (80.0-105.0); MEAN CORPUSCULAR HEMOGLOBIN 22.1 pg (25.0-35.0); MEAN CORPUSCULAR HGB CONC 31.2 g/dl (31.0-37.0); MEAN PLATELET VOLUME 9.4 fl (7.0-11.0); MONO # 0.6 (0.1-0.6); MONO % 7.8 % (1.0-6.0); RBC 4.61 10^6/uL (3.5-6.1); RED CELL DISTRIBUTION WIDTH 26.7 % (11.5-14.5); WHITE BLOOD COUNT 7.8 10^3/uL (4.5-11.0)
[2018-10-28 06:48] LABS: ALB/GLOB RATIO 1.1 (1.1-1.8); ALBUMIN 3.4 g/dL (3.0-4.8); ALT/SGPT 159 U/L (7-56); AST/SGOT 145 U/L (14-36); BLOOD UREA NITROGEN 10 mg/dL (7-21); CALCIUM 8.9 mg/dL (8.4-10.5); GFR NON-AFRICAN AMERICAN > 60
--- NOTE | 2018-10-28 07:46 | CP.PCM.PN ---
Subjective - Date & Time of Evaluation Date of Evaluation: 10/28/18 Time of Evaluation: 06:35 - Subjective Subjective: Awake, alert, lying in bed, anxious about surgery Reason for consultation and follow up: Pre-op cardiac clearance for abdominal surgery, history of hyperlipidemia Seen and examined by me and Dr. Rogers Objective - Vital Signs/Intake and Output Vital Signs (last 24 hours): Temp Pulse Resp BP Pulse Ox 97.5 F L 56 L 18 122/72 97 10/27/18 08:42 10/28/18 06:00 10/27/18 08:42 10/27/18 21:32 10/27/18 08:42 Intake and Output: 10/28/18 10/28/18 06:59 18:59 Intake Total 2164 Output Total 602 Balance 1562 - Medications Medications: Current Medications Acetaminophen (Tylenol 325mg Tab) 650 mg PO Q4H PRN PRN Reason: Pain, Mild (1-3) Alprazolam (Xanax) 0.25 mg PO BID PRN; Protocol PRN Reason: Anxiety Diphenhydramine HCl (Benadryl) 50 mg IVP HS PRN PRN Reason: Allergy symptoms Erythromycin (Erythromycin) 500 mg PO Q6 [facility]; Protocol Stop: 10/29/18 00:01 Last Admin: 10/28/18 06:17 Dose: 500 mg Heparin Sodium (Porcine) (Heparin) 5,000 units SC Q8 [facility]; Protocol Last Admin: 10/28/18 06:17 Dose: 5,000 units Hydromorphone HCl (Dilaudid) 0.5 mg IVP Q3H PRN PRN Reason: Pain, severe (8-10) Last Admin: 10/26/18 21:37 Dose: 0.5 mg Amino Acids (Clinimix 4.25/5 % "E" (1000 Ml)) 1,000 mls @ 42 mls/hr IV .[id number] [facility] Last Admin: 10/27/18 17:29 Dose: 42 mls/hr Lactated Ringer's (Lactated Ringer's) 1,000 mls @ 85 mls/hr IV .[id number] [facility] Last Admin: 10/28/18 06:18 Dose: 85 mls/hr Magnesium Hydroxide (Milk Of Magnesia) 30 ml PO DAILY [facility] Last Admin: 10/27/18 09:12 Dose: Not Given Metoprolol Tartrate (Lopressor) 25 mg PO Q12 [facility] Last Admin: 10/27/18 21:32 Dose: Not Given Neomycin Sulfate (Neomycin Tab) 1,000 mg PO Q4H [facility] Stop: 10/29/18 02:01 Last Admin: 10/28/18 06:18 Dose: 1,000 mg Ondansetron HCl (Zofran Inj) 4 mg IVP Q4H PRN PRN Reason: Nausea/Vomiting Last Admin: 10/25/18 09:13 Dose: 4 mg Pantoprazole Sodium (Protonix Inj) 40 mg IVP DAILY [facility] Last Admin: 10/27/18 09:11 Dose: 40 mg - Labs Labs: 10/28/18 05:30 10/28/18 05:30 PT 13.2 SECONDS (9.4-12.5) H 10/26/18 05:30 INR 1.17 10/26/18 05:30 - Constitutional Appears: Non-toxic, No Acute Distress - Head Exam Head Exam: NORMAL INSPECTION, NORMOCEPHALIC - Eye Exam Eye Exam: Normal appearance Pupil Exam: NORMAL ACCOMODATION - ENT Exam ENT Exam: Mucous Membranes Moist, Normal Exam - Respiratory Exam Respiratory Exam: Decreased Breath Sounds, Clear to Ausculation Bilateral, NORMAL BREATHING PATTERN - Cardiovascular Exam Cardiovascular Exam: +S1, +S2 - GI/Abdominal Exam GI & Abdominal Exam: Soft, Normal Bowel Sounds - Extremities Exam Extremities Exam: Full ROM, Normal Capillary Refill - Neurological Exam Neurological Exam: Alert, Awake, Oriented x3 - Psychiatric Exam Psychiatric exam: Anxious - Skin Skin Exam: Dry, Normal Color, Warm Assessment and Plan - Assessment and Plan (Free Text) Assessment: An 82 year old female who came in to the Er due to abdominal pain and diarrhea. Consult was called to for risk stratification and cardiac clearance for abdominal surgery. History of hyperlipidemia and anxiety. Weight loss for the past few months. CT of abdomen showed annular neoplasm in the distal transverse colon/splenic flexure, mass on the lateral segment of the left hepatic lobe. Patient denies chest pain or shortness of breath. EKG-normal sinus rhythm, Chest X ray -normal. No evidence of myocardial ischemia or heart failure. No absolute contraindication for surgery. Cardiac status stable .Cleared for surgery with moderate risk. Low dose betablocker to prevent arrythmia during surgery. For echo today to evaluate LV function. Plan: For echo today Anxious about surgery Cardiac status stable Heart rate and blood pressure stable Cleared for surgery with moderate risk Betablocker to prevent arrythmias On Lopressor 25 mg every 12 hours Replenish potassium Continue antibiotics as ordered Continue current management Will follow postoperatively Plan and treatment discussed with Dr. Rogers
[2018-10-28] MEDS ORDERED: Potassium Chloride 20 mEq ER Tab PO ONE (07:59)
--- NOTE | 2018-10-28 09:16 | CP.PCM.PN ---
<Kunal Olson - Last Filed: 10/28/18 16:29> Subjective - Date & Time of Evaluation Date of Evaluation: 10/28/18 Time of Evaluation: 09:16 - Subjective Subjective: Kunal Olson PGY2 GI Progress Note for Dr. Vasquez Patient was seen and examined at bedside. Patient's abdomen remains soft, and she continues on bowel prep in preparation for OR tomorrow. Discussed with the patient that we'd like to have an MRI today to evaluate the biliary system prior to OR. Patient understands but has some reservation because of her bowel prep. Offer rectal tube, but patient declined at this time. No other overnight events. Objective - Vital Signs/Intake and Output Vital Signs (last 24 hours): Temp Pulse Resp BP Pulse Ox 98.1 F 60 20 153/84 H 95 10/28/18 07:56 10/28/18 07:56 10/28/18 07:56 10/28/18 07:56 10/28/18 07:56 Intake and Output: 10/28/18 10/28/18 06:59 18:59 Intake Total 2164 Output Total 602 Balance 1562 - Medications Medications: Current Medications Acetaminophen (Tylenol 325mg Tab) 650 mg PO Q4H PRN PRN Reason: Pain, Mild (1-3) Alprazolam (Xanax) 0.25 mg PO BID PRN; Protocol PRN Reason: Anxiety Diphenhydramine HCl (Benadryl) 50 mg IVP HS PRN PRN Reason: Allergy symptoms Erythromycin (Erythromycin) 500 mg PO Q6 [facility]; Protocol Stop: 10/29/18 00:01 Last Admin: 10/28/18 06:17 Dose: 500 mg Heparin Sodium (Porcine) (Heparin) 5,000 units SC Q8 [facility]; Protocol Last Admin: 10/28/18 06:17 Dose: 5,000 units Amino Acids (Clinimix 4.25/5 % "E" (1000 Ml)) 1,000 mls @ 42 mls/hr IV .[id number] [facility] Last Admin: 10/27/18 17:29 Dose: 42 mls/hr Lactated Ringer's (Lactated Ringer's) 1,000 mls @ 85 mls/hr IV .[id number] [facility] Last Admin: 10/28/18 06:18 Dose: 85 mls/hr Magnesium Hydroxide (Milk Of Magnesia) 30 ml PO DAILY [facility] Last Admin: 10/27/18 09:12 Dose: Not Given Metoprolol Tartrate (Lopressor) 25 mg PO Q12 [facility] Last Admin: 10/27/18 21:32 Dose: Not Given Neomycin Sulfate (Neomycin Tab) 1,000 mg PO Q4H [facility] Stop: 10/29/18 02:01 Last Admin: 10/28/18 06:18 Dose: 1,000 mg Ondansetron HCl (Zofran Inj) 4 mg IVP Q4H PRN PRN Reason: Nausea/Vomiting Last Admin: 10/25/18 09:13 Dose: 4 mg Pantoprazole Sodium (Protonix Inj) 40 mg IVP DAILY [facility] Last Admin: 10/27/18 09:11 Dose: 40 mg - Labs Labs: 10/28/18 05:30 10/28/18 05:30 PT 13.2 SECONDS (9.4-12.5) H 10/26/18 05:30 INR 1.17 10/26/18 05:30 - Constitutional Appears: Well, Non-toxic, No Acute Distress - Head Exam Head Exam: ATRAUMATIC, NORMAL INSPECTION, NORMOCEPHALIC - Eye Exam Eye Exam: EOMI, Normal appearance, PERRL Pupil Exam: NORMAL ACCOMODATION, PERRL - ENT Exam ENT Exam: Mucous Membranes Moist, Normal Exam - Neck Exam Neck Exam: Full ROM, Normal Inspection. absent: Lymphadenopathy - Respiratory Exam Respiratory Exam: Clear to Ausculation Bilateral, NORMAL BREATHING PATTERN. absent: Respiratory Distress - Cardiovascular Exam Cardiovascular Exam: REGULAR RHYTHM, +S1, +S2. absent: Murmur - GI/Abdominal Exam GI & Abdominal Exam: Soft, Normal Bowel Sounds. absent: Distended, Tenderness - Extremities Exam Extremities Exam: Full ROM, Normal Capillary Refill, Normal Inspection. absent: Joint Swelling, Pedal Edema - Neurological Exam Neurological Exam: Alert, Awake, Normal Gait, Oriented x3 - Skin Skin Exam: Dry, Intact, Normal Color, Warm Assessment and Plan - Assessment and Plan (Free Text) Assessment: 82 year old female with a PMH of HLD and anxiety who is admitted for liver lesions found on abdominal US recently, and for continued abdominal pain, emesis and diarrhea. CT Abd/pelvis reviewed showing a mass in the splenic flexure, and 2 liver masses; pancreas has no lesions. Anemia is noted but stable. s/p colonoscopy 10/26 in which scope could not be advanced due to transverse colon mass, which was biopsied. Liver enzyme elevations noted but likely due to liver lesions, improving. Patient is being prepped for OR tomorrow. Plan: - MRCP to evaluate hepatobiliary system - cont CLD as tolerated - awaiting pathology results - Will discuss w/ surgery team; planned for surgery dian AM. being prepped by surgery team - monitor H/H - zofran prn n/v - PPI for GI ppx - further recs per Dr. Vasquez Case was reviewed and discussed with Dr. Vasquez <Norma Vasquez V - Last Filed: 10/28/18 22:46> Objective - Vital Signs/Intake and Output Vital Signs (last 24 hours): Temp Pulse Resp BP Pulse Ox 98.7 F 75 18 170/92 H 98 10/28/18 17:42 10/28/18 21:12 10/28/18 17:42 10/28/18 21:12 10/28/18 17:42 - Medications Medications: Current Medications Acetaminophen (Tylenol 325mg Tab) 650 mg PO Q4H PRN PRN Reason: Pain, Mild (1-3) Alprazolam (Xanax) 0.25 mg PO BID PRN; Protocol PRN Reason: Anxiety Last Admin: 10/28/18 22:30 Dose: 0.25 mg Diphenhydramine HCl (Benadryl) 50 mg IVP HS PRN PRN Reason: Allergy symptoms Erythromycin (Erythromycin) 500 mg PO Q6 [facility]; Protocol Stop: 10/29/18 00:01 Last Admin: 10/28/18 17:25 Dose: 500 mg Heparin Sodium (Porcine) (Heparin) 5,000 units SC Q8 [facility]; Protocol Last Admin: 10/28/18 13:26 Dose: Not Given Amino Acids (Clinimix 4.25/5 % "E" (1000 Ml)) 1,000 mls @ 42 mls/hr IV .[id number] [facility] Last Admin: 10/28/18 17:26 Dose: 42 mls/hr Lactated Ringer's (Lactated Ringer's) 1,000 mls @ 85 mls/hr IV .[id number] [facility] Last Admin: 10/28/18 17:26 Dose: 85 mls/hr Magnesium Hydroxide (Milk Of Magnesia) 30 ml PO DAILY [facility] Last Admin: 10/28/18 10:31 Dose: 30 ml Metoprolol Tartrate (Lopressor) 25 mg PO Q12 [facility] Last Admin: 10/28/18 21:12 Dose: 25 mg Neomycin Sulfate (Neomycin Tab) 1,000 mg PO Q4H [facility] Stop: 10/29/18 02:01 Last Admin: 10/28/18 21:14 Dose: 1,000 mg Ondansetron HCl (Zofran Inj) 4 mg IVP Q4H PRN PRN Reason: Nausea/Vomiting Last Admin: 10/28/18 21:00 Dose: 4 mg Pantoprazole Sodium (Protonix Inj) 40 mg IVP DAILY [facility] Last Admin: 10/28/18 10:31 Dose: 40 mg - Labs Labs: 10/28/18 05:30 10/28/18 05:30 PT 13.2 SECONDS (9.4-12.5) H 10/26/18 05:30 INR 1.17 10/26/18 05:30 Attending/Attestation - Attestation I have personally seen and examined this patient.: Yes I have fully participated in the care of the patient.: Yes I have reviewed all pertinent clinical information, including history, physical exam and plan: Yes Notes (Text): This patient was seen and evaluated along with the resident earlier. Patient is scheduled for OR on . LFTs show slightly upward trend. Did have a sonogram don in 2012 was reviewed and no stonee this patient have adenocarcinoma discussed with pathologist. Tissue marker studies pending to confirm the site of origin of cancer. Follow-up LFT. We will request for ultrasound scan of the abdomen to rule out gallstones and to rule out CBD stone 10/28/18 22:41 this patient has an obstructive transverse colon lesion and multiple liver metastatic lesions the patient has been prepared for surgery tomorrow Would request MRCP to further evaluate hepatic lesions and bile ducts involvement of the tumor
--- NOTE | 2018-10-28 09:38 | CP.PCM.PN ---
Subjective - Date & Time of Evaluation Date of Evaluation: 10/28/18 Time of Evaluation: 09:36 - Subjective Subjective: Nataliia Portillo PGY1 Progress Note for Dr. Vela Patient was examined at bedside this morning. She has no complaints today. She denies fever, chills, abdominal pain, nausea, vomiting. She reports adequate bowel movements after using the prep. Lengthy discussion regarding surgical procedure, risks, and outcomes was had with patient and family. Objective - Vital Signs/Intake and Output Vital Signs (last 24 hours): Temp Pulse Resp BP Pulse Ox 98.1 F 60 20 153/84 H 95 10/28/18 07:56 10/28/18 07:56 10/28/18 07:56 10/28/18 07:56 10/28/18 07:56 Intake and Output: 10/28/18 10/28/18 06:59 18:59 Intake Total 2164 Output Total 602 Balance 1562 - Medications Medications: Current Medications Acetaminophen (Tylenol 325mg Tab) 650 mg PO Q4H PRN PRN Reason: Pain, Mild (1-3) Alprazolam (Xanax) 0.25 mg PO BID PRN; Protocol PRN Reason: Anxiety Diphenhydramine HCl (Benadryl) 50 mg IVP HS PRN PRN Reason: Allergy symptoms Erythromycin (Erythromycin) 500 mg PO Q6 [facility]; Protocol Stop: 10/29/18 00:01 Last Admin: 10/28/18 06:17 Dose: 500 mg Heparin Sodium (Porcine) (Heparin) 5,000 units SC Q8 [facility]; Protocol Last Admin: 10/28/18 06:17 Dose: 5,000 units Amino Acids (Clinimix 4.25/5 % "E" (1000 Ml)) 1,000 mls @ 42 mls/hr IV .[id number] [facility] Last Admin: 10/27/18 17:29 Dose: 42 mls/hr Lactated Ringer's (Lactated Ringer's) 1,000 mls @ 85 mls/hr IV .[id number] [facility] Last Admin: 10/28/18 06:18 Dose: 85 mls/hr Magnesium Hydroxide (Milk Of Magnesia) 30 ml PO DAILY [facility] Last Admin: 10/27/18 09:12 Dose: Not Given Metoprolol Tartrate (Lopressor) 25 mg PO Q12 [facility] Last Admin: 10/27/18 21:32 Dose: Not Given Neomycin Sulfate (Neomycin Tab) 1,000 mg PO Q4H [facility] Stop: 10/29/18 02:01 Last Admin: 10/28/18 06:18 Dose: 1,000 mg Ondansetron HCl (Zofran Inj) 4 mg IVP Q4H PRN PRN Reason: Nausea/Vomiting Last Admin: 10/25/18 09:13 Dose: 4 mg Pantoprazole Sodium (Protonix Inj) 40 mg IVP DAILY [facility] Last Admin: 10/27/18 09:11 Dose: 40 mg - Labs Labs: 10/28/18 05:30 10/28/18 05:30 PT 13.2 SECONDS (9.4-12.5) H 10/26/18 05:30 INR 1.17 10/26/18 05:30 - Constitutional Appears: Well, No Acute Distress - Head Exam Head Exam: ATRAUMATIC, NORMOCEPHALIC - Eye Exam Eye Exam: EOMI, Normal appearance - ENT Exam ENT Exam: Mucous Membranes Moist - Respiratory Exam Respiratory Exam: NORMAL BREATHING PATTERN. absent: Respiratory Distress - GI/Abdominal Exam GI & Abdominal Exam: Soft. absent: Distended, Firm, Tenderness - Extremities Exam Extremities Exam: Normal Inspection - Neurological Exam Neurological Exam: Alert, Awake, Oriented x3 - Skin Skin Exam: Normal Color Assessment and Plan - Assessment and Plan (Free Text) Assessment: 82yo F with PMHx of Anxiety, HLD here with a nearly obstructing colonic mass at splenic flexure and masses at L hepatic lobe Plan: - for L colon resection 10/29 - s/p colonoscopy 10/27 showing malignant mass in transverse colon - f/u biopsy results - f/u echo reading - f/u MRCP - moderate risk for surgery, cardiology recs appreciated - Antiemetics prn - Pain control - IVF - monitor and replete electrolytes as needed Further recs as per Dr. Vela
--- NOTE | 2018-10-28 09:50 | CP.PCM.PN ---
Subjective - Date & Time of Evaluation Date of Evaluation: 10/28/18 Time of Evaluation: 09:49 - Subjective Subjective: Kendall Mcmahan DO, PGY-1 Hematology/Oncology Progress Note for Dr. Barlow Patient was seen and examined at bedside this AM. She offers no new complaints this AM and states she feels fine. She started bowel prep regimen yesterday and has been tolerating well so far. Objective - Vital Signs/Intake and Output Vital Signs (last 24 hours): Temp Pulse Resp BP Pulse Ox 98.1 F 60 20 153/84 H 95 10/28/18 07:56 10/28/18 07:56 10/28/18 07:56 10/28/18 07:56 10/28/18 07:56 Intake and Output: 10/28/18 10/28/18 06:59 18:59 Intake Total 2164 Output Total 602 Balance 1562 - Medications Medications: Current Medications Acetaminophen (Tylenol 325mg Tab) 650 mg PO Q4H PRN PRN Reason: Pain, Mild (1-3) Alprazolam (Xanax) 0.25 mg PO BID PRN; Protocol PRN Reason: Anxiety Diphenhydramine HCl (Benadryl) 50 mg IVP HS PRN PRN Reason: Allergy symptoms Erythromycin (Erythromycin) 500 mg PO Q6 [facility]; Protocol Stop: 10/29/18 00:01 Last Admin: 10/28/18 06:17 Dose: 500 mg Heparin Sodium (Porcine) (Heparin) 5,000 units SC Q8 [facility]; Protocol Last Admin: 10/28/18 06:17 Dose: 5,000 units Amino Acids (Clinimix 4.25/5 % "E" (1000 Ml)) 1,000 mls @ 42 mls/hr IV .[id number] [facility] Last Admin: 10/27/18 17:29 Dose: 42 mls/hr Lactated Ringer's (Lactated Ringer's) 1,000 mls @ 85 mls/hr IV .[id number] [facility] Last Admin: 10/28/18 06:18 Dose: 85 mls/hr Magnesium Hydroxide (Milk Of Magnesia) 30 ml PO DAILY [facility] Last Admin: 10/27/18 09:12 Dose: Not Given Metoprolol Tartrate (Lopressor) 25 mg PO Q12 [facility] Last Admin: 10/27/18 21:32 Dose: Not Given Neomycin Sulfate (Neomycin Tab) 1,000 mg PO Q4H [facility] Stop: 10/29/18 02:01 Last Admin: 10/28/18 06:18 Dose: 1,000 mg Ondansetron HCl (Zofran Inj) 4 mg IVP Q4H PRN PRN Reason: Nausea/Vomiting Last Admin: 10/25/18 09:13 Dose: 4 mg Pantoprazole Sodium (Protonix Inj) 40 mg IVP DAILY [facility] Last Admin: 10/27/18 09:11 Dose: 40 mg - Labs Labs: 10/28/18 05:30 10/28/18 05:30 PT 13.2 SECONDS (9.4-12.5) H 10/26/18 05:30 INR 1.17 10/26/18 05:30 - Constitutional Appears: Non-toxic, No Acute Distress - Head Exam Head Exam: ATRAUMATIC, NORMOCEPHALIC - Eye Exam Eye Exam: EOMI, PERRL - ENT Exam ENT Exam: Mucous Membranes Moist - Neck Exam Neck Exam: absent: Lymphadenopathy, Thyromegaly - Respiratory Exam Respiratory Exam: Clear to Ausculation Bilateral, NORMAL BREATHING PATTERN. absent: Rales, Rhonchi, Wheezes - Cardiovascular Exam Cardiovascular Exam: REGULAR RHYTHM, RRR, +S1, +S2. absent: Gallop, Rubs, Murmur - GI/Abdominal Exam GI & Abdominal Exam: Soft, Normal Bowel Sounds. absent: Guarding, Tenderness - Extremities Exam Extremities Exam: Full ROM. absent: Pedal Edema - Back Exam Back Exam: NORMAL INSPECTION - Neurological Exam Neurological Exam: Alert, Awake, Oriented x3 - Psychiatric Exam Psychiatric exam: Normal Affect, Normal Mood - Skin Skin Exam: Dry, Intact, Warm Assessment and Plan - Assessment and Plan (Free Text) Assessment: 82 yo F with PMH of anxiety who admitted for liver lesions found on abdominal US recently, and for continued abdominal pain, emesis and diarrhea. She was found on CTAP on admission to have annular neoplasm in the distal transverse colon/splenic flexure w/associated fluid in proximal colon. She also had 2 heterogenous masses in the lateral segment of L hepatic lobe. Plan: L transverse colon mass w/hepatic masses Suspect colon primary with liver metastases, given elevated CEA Will need tissue diagnosis to determine proper chemotherapy regimen, which will likely include FOLFOX backbone Test for KRAS, SILKE, BRAF oncogene activity, microsatellite instability (MSI), and PDL-1 markers to determine whether additional agents would be beneficial Dr. Vela, Dr. Vasquez, and Dr. Blandon following Colonoscopy completed yesterday which identified large, partially obstructing mass in the transverse colon, biopsies were taken F/u pathology of biopsy Abdomen US completed showed bi-lobar hepatic masses Surgery team planning to take to OR for L hemicolectomy with probable liver bx tomorrow Clear liquid diet today for bowel prep per surgery recs Continue PPN Per Dr. Blandon, patient is not a candidate for resection of liver lesions Continue zofran PRN for nausea Thank you for this interesting consult, we will continue to follow. Patient seen, examined with, and plan discussed with my attending Dr. Cain Mcmahan, DO IM Resident PGY-1
[2018-10-28] MEDS: Magnesium Hydroxide Susp 30 ml UD PO SCH (10:31)
--- NOTE | 2018-10-28 10:57 | PN ---
SUBJECTIVE: The patient was seen and examined at bedside on the general medical [facility]. No acute events overnight. She remains afebrile, hemodynamically stable and is pending surgery tomorrow for resection of the distal transverse colon mass. OBJECTIVE: VITAL SIGNS: Temperature 98.1, pulse 60, blood pressure 153/84, respiratory rate 20 and oxygen saturation 95% on room air. GENERAL: No apparent distress. HEENT: PERRL, EOMI. No scleral icterus. Mild conjunctival pallor is noted. NECK: No JVD. No bruits. LUNGS: Clear to auscultation. CARDIOVASCULAR: Regular rate and rhythm. Normal S1 and S2. No murmurs. ABDOMEN: Normoactive bowel sounds, soft and nondistended. Tender to palpation to lower abdomen with voluntary guarding. EXTREMITIES: No edema. NEUROLOGIC: Awake, alert and oriented x 3. No focal motor deficits. LABORATORY DATA: WBC 7.8 with 73% neutrophils, hemoglobin 10, hematocrit 33, platelets 330 and MCV 71. Sodium 136, potassium 3.6, chloride 103, bicarb 25, BUN 10, creatinine 0.5, glucose 106. AST 145, ALT 159 and alk phos 123. ASSESSMENT: The patient is an 82-year-old woman with a past medical history of hyperlipidemia and anxiety disorder who presented for evaluation of a 2 month history of abdominal pain, bloating, cramping and changes in bowel habits and was admitted for workup of likely metastatic colorectal cancer. PLAN: 1. 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 Input from Dr. Vasquez noted. The patient is pending surgical intervention tomorrow with Dr. Vela. Cardiac preoperative risk stratification is ongoing with Dr. Rogers. The patient has no active cardiac conditions and will be an intermediate risk candidate for an intermediate risk procedure. 2. Hepatic lesions, likely representing metastatic colorectal cancer. We will attempt to obtain tissue biopsy intraoperatively. Continue with care as per #1. Obtain MRI to better evaluate hepatic lesions to see if amenable to resection as per Dr. Blandon. 3. Iron-deficiency anemia, likely secondary to metastatic colorectal cancer. Continue to monitor CBC daily and transfuse as needed. 4. Anxiety disorder. Continue Xanax 0.5 mg p.o. b.i.d. 5. Hyperlipidemia. Continue Lipitor 40 mg p.o. daily. 6. Prophylaxis. Continue Protonix for GI prophylaxis and Heparin for DVT prophylaxis. CODE STATUS: Full code. Charles He MD VON
--- NOTE | 2018-10-28 17:18 | CARD ---
APPROVED REPORT Date of service: 10/28/2018 EXAM: Two-dimensional and M-mode echocardiogram with Doppler and color Doppler. INDICATION Pre-Op 2D DIMENSIONS Left Atrium (2D)4.0 (1.6-4.0cm)IVSd1.1 (0.7-1.1cm) LVDd4.8 (3.9-5.9cm)PWd0.8 (0.7-1.1cm) LVDs3.4 (2.5-4.0cm)FS (%) 28.8 % LVEF (%)55.3 (>50%) M-Mode DIMENSIONS Aortic Root2.60 (2.2-3.7cm)Aortic Cusp Exc.1.60 (1.5-2.0cm) Aortic Valve AoV Peak Pgtisvgf388.0cm/[place] Peak GR.14mmHg Mitral Valve MV E Kfqrouqo42.4cm/sMV A Uqqiseos72.2cm/sE/A ratio0.7 TDI E/Lateral E'0.0E/Medial E'0.0 Tricuspid Valve TR Peak Sxmenwul501nn/sRAP [id number] Peak Gr.41mmHg [id number] LEFT VENTRICLE The left ventricle is normal size. There is normal left ventricular wall thickness. The left ventricular function is normal. The left ventricular ejection fraction is within the normal range. There is normal LV segmental wall motion. Transmitral Doppler flow pattern is Grade I-abnormal relaxation pattern. RIGHT VENTRICLE The right ventricle is normal size. There is normal right ventricular wall thickness. The right ventricular systolic function is normal. ATRIA The left atrium is borderline dilated. The right atrium size is normal. AORTIC VALVE The aortic valve is mildly thickened. No aortic regurgitation is present. There is no aortic valvular stenosis. MITRAL VALVE The mitral valve is normal in structure. Mitral regurgitation is mild. There is no mitral valve stenosis. TRICUSPID VALVE There is moderate tricuspid regurgitation. There is moderate pulmonary hypertension. PULMONIC VALVE There is mild pulmonic valvular regurgitation. GREAT VESSELS The aortic root is normal in size. The IVC is normal in size and collapses >50% with inspiration. PERICARDIAL EFFUSION There is no pericardial effusion. <Conclusion> There is normal left ventricular wall thickness. The left ventricular function is normal. The left ventricular ejection fraction is within the normal range. There is normal LV segmental wall motion. Transmitral Doppler flow pattern is Grade I-abnormal relaxation pattern. Mitral regurgitation is mild. There is moderate tricuspid regurgitation. There is moderate pulmonary hypertension. There is mild pulmonic valvular regurgitation.
[2018-10-28] MEDS ORDERED: Gadodiamide 287 MG/ML VIAL (20ML) IV ONE (22:09)
[2018-10-29] MEDS ORDERED: DiphenhydrAMINE 50 mg/ml Inj IVP STA (03:59)
--- NOTE | 2018-10-29 07:20 | CP.PCM.PN ---
<Kunal Olson - Last Filed: 10/29/18 21:49> Subjective - Date & Time of Evaluation Date of Evaluation: 10/29/18 Time of Evaluation: 20:43 - Subjective Subjective: Kunal Olson PGY2 GI Progress Note for Dr. Vasquez Patient was seen and examined at bedside post-op. Patient underwent procedure for laparascopic extended left sided hemicolectomy w/ primary anastamosis, and left liver lobe wedge biopsy. She has NGT and is complaining of a sore throat. Objective - Vital Signs/Intake and Output Vital Signs (last 24 hours): Temp Pulse Resp BP Pulse Ox 98.7 F 58 L 18 170/92 H 98 10/28/18 17:42 10/29/18 06:00 10/28/18 17:42 10/28/18 21:12 10/28/18 17:42 Intake and Output: 10/29/18 10/29/18 06:59 18:59 Intake Total 0 480 Output Total 580 580 Balance -580 -100 - Medications Medications: Current Medications Acetaminophen (Tylenol 325mg Tab) 650 mg PO Q4H PRN PRN Reason: Pain, Mild (1-3) Alprazolam (Xanax) 0.25 mg PO BID PRN; Protocol PRN Reason: Anxiety Last Admin: 10/28/18 22:30 Dose: 0.25 mg Diphenhydramine HCl (Benadryl) 50 mg IVP HS PRN PRN Reason: Allergy symptoms Heparin Sodium (Porcine) (Heparin) 5,000 units SC Q8 [facility]; Protocol Last Admin: 10/28/18 13:26 Dose: Not Given Amino Acids (Clinimix 4.25/5 % "E" (1000 Ml)) 1,000 mls @ 42 mls/hr IV .[id number] [facility] Last Admin: 10/28/18 17:26 Dose: 42 mls/hr Lactated Ringer's (Lactated Ringer's) 1,000 mls @ 85 mls/hr IV .[id number] [facility] Last Admin: 10/28/18 17:26 Dose: 85 mls/hr Magnesium Hydroxide (Milk Of Magnesia) 30 ml PO DAILY [facility] Last Admin: 10/28/18 10:31 Dose: 30 ml Metoprolol Tartrate (Lopressor) 25 mg PO Q12 [facility] Last Admin: 10/28/18 21:12 Dose: 25 mg Ondansetron HCl (Zofran Inj) 4 mg IVP Q4H PRN PRN Reason: Nausea/Vomiting Last Admin: 10/29/18 03:46 Dose: 4 mg Pantoprazole Sodium (Protonix Inj) 40 mg IVP DAILY [facility] Last Admin: 10/28/18 10:31 Dose: 40 mg - Labs Labs: 10/28/18 05:30 10/28/18 05:30 PT 13.2 SECONDS (9.4-12.5) H 10/26/18 05:30 INR 1.17 10/26/18 05:30 - Constitutional Appears: Well, Non-toxic, No Acute Distress - Head Exam Head Exam: ATRAUMATIC, NORMAL INSPECTION, NORMOCEPHALIC - Eye Exam Eye Exam: EOMI, Normal appearance, PERRL Pupil Exam: NORMAL ACCOMODATION, PERRL - ENT Exam ENT Exam: Mucous Membranes Moist, Normal Exam Additional comments: NGT in place - Neck Exam Neck Exam: Full ROM, Normal Inspection. absent: Lymphadenopathy - Respiratory Exam Respiratory Exam: Clear to Ausculation Bilateral, NORMAL BREATHING PATTERN. absent: Respiratory Distress - Cardiovascular Exam Cardiovascular Exam: REGULAR RHYTHM, +S1, +S2. absent: Murmur - GI/Abdominal Exam GI & Abdominal Exam: Soft. absent: Distended, Tenderness Additional comments: post-op dressings applied - Extremities Exam Extremities Exam: Full ROM, Normal Capillary Refill, Normal Inspection. absent: Joint Swelling, Pedal Edema - Neurological Exam Neurological Exam: Alert, Awake, Normal Gait, Oriented x3 - Skin Skin Exam: Dry, Intact, Normal Color, Warm Assessment and Plan - Assessment and Plan (Free Text) Assessment: 82 year old female with a PMH of HLD and anxiety who is admitted for liver lesions found on abdominal US recently, and for continued abdominal pain, emesis and diarrhea. CT Abd/pelvis reviewed showing a mass in the splenic flexure, and 2 liver masses; pancreas has no lesions. Anemia is noted but stable. s/p c olonoscopy 10/26 in which scope could not be advanced due to transverse colon mass, which was biopsied and showed invasive moderately differentiated adenocarcinoma. Liver enzyme elevations noted but likely due to liver lesions, improving. POD 0 lap left hemicolectomy and wedge liver biopsy. Plan: - MRCP was unremarkbale - cont diet as tolerated, and advance per surgery - monitor H/H - cepacol prn sore throat - zofran prn n/v - PPI for GI ppx - further recs per Dr. Vasquez Case was reviewed and discussed with Dr. Vasquez <Norma Vasquez V - Last Filed: 10/30/18 00:32> Objective - Vital Signs/Intake and Output Vital Signs (last 24 hours): Temp Pulse Resp BP Pulse Ox 97.8 F 58 L 12 130/58 L 96 10/29/18 13:14 10/29/18 22:47 10/29/18 13:14 10/29/18 22:47 10/29/18 13:14 Intake and Output: 10/29/18 10/30/18 18:59 06:59 Intake Total 480 0 Output Total 580 800 Balance -100 -800 - Medications Medications: Current Medications Acetaminophen (Tylenol 325mg Tab) 650 mg PO Q4H PRN PRN Reason: Pain, Mild (1-3) Last Admin: 10/29/18 22:30 Dose: 650 mg Alprazolam (Xanax) 0.25 mg PO BID PRN; Protocol PRN Reason: Anxiety Last Admin: 10/28/18 22:30 Dose: 0.25 mg Benzocaine/Menthol (Cepacol Sore Throat) 1 [place]dy MT Q2H PRN PRN Reason: Sore Throat Diphenhydramine HCl (Benadryl) 50 mg IVP HS PRN PRN Reason: Allergy symptoms Heparin Sodium (Porcine) (Heparin) 5,000 units SC Q8 [facility]; Protocol Last Admin: 10/28/18 13:26 Dose: Not Given Amino Acids (Clinimix 4.25/5 % "E" (1000 Ml)) 1,000 mls @ 42 mls/hr IV .[id number] [facility] Last Admin: 10/29/18 18:09 Dose: 42 mls/hr Lactated Ringer's (Lactated Ringer's) 1,000 mls @ 85 mls/hr IV .[id number] [facility] Last Admin: 10/29/18 18:10 Dose: 85 mls/hr Ketorolac Tromethamine (Toradol) 15 mg IVP Q6 [facility] Last Admin: 10/30/18 00:00 Dose: 15 mg Magnesium Hydroxide (Milk Of Magnesia) 30 ml PO DAILY [facility] Last Admin: 10/29/18 10:34 Dose: Not Given Metoprolol Tartrate (Lopressor) 5 mg IVP Q6H [facility] Last Admin: 10/29/18 22:47 Dose: Not Given Ondansetron HCl (Zofran Inj) 4 mg IVP Q4H PRN PRN Reason: Nausea/Vomiting Last Admin: 10/29/18 03:46 Dose: 4 mg Pantoprazole Sodium (Protonix Inj) 40 mg IVP DAILY [facility] Last Admin: 10/29/18 10:34 Dose: Not Given Phenol/Menthol (Phenaseptic 1.4% Throat [place]) 1 ml MT Q1H PRN PRN Reason: Sore Throat - Labs Labs: 10/29/18 07:40 10/29/18 07:40 PT 13.1 SECONDS (9.4-12.5) H 10/29/18 07:40 INR 1.16 10/29/18 07:40 APTT 34.6 Seconds (26.9-38.3) 10/29/18 07:40 Attending/Attestation - Attestation I have personally seen and examined this patient.: Yes I have fully participated in the care of the patient.: Yes I have reviewed all pertinent clinical information, including history, physical exam and plan: Yes Notes (Text): This patient was seen and evaluated here earlier today. Patient's MRCP findings were reviewed. Increasing LFTs follow-up. Schedule for OR Patient is obstructing lesion in the distal transverse colon. 10/30/18 00:31
[2018-10-29] MEDS ORDERED: Midazolam 2 MG/2 ML VIAL ONE (07:29)
[2018-10-29] MEDS ORDERED: Etomidate 20 mg/10ml Inj IV ONE (07:29)
[2018-10-29] MEDS ORDERED: Phenylephrine 10 mg/ml Inj ONE (07:30)
[2018-10-29] MEDS ORDERED: Sevoflurane - Inhalation Anesthetic Liq (250 ml) ONE (07:31)
[2018-10-29] MEDS ORDERED: Bupivacaine 0.5% 50 ML IJ ONE ×3 (07:37→11:17)
[2018-10-29] MEDS ORDERED: Succinylcholine 200 mg/10 ml Inj IV ONE (07:47)
[2018-10-29 07:53] LABS: BASO # 0.03 K/mm3 (0.0-2.0); BASO % 0.5 % (0.0-3.0); EOS # 0.1 (0.0-0.7); EOS % 1.4 % (1.5-5.0); HEMOGLOBIN 10.8 g/dL (12.0-16.0); LYMPH # 1.3 (1.2-3.4); LYMPH % 20.8 % (22.0-35.0); MEAN CELL VOLUME 70.9 fl (80.0-105.0); MEAN CORPUSCULAR HEMOGLOBIN 21.5 pg (25.0-35.0); MEAN CORPUSCULAR HGB CONC 30.3 g/dl (31.0-37.0); MEAN PLATELET VOLUME 9.2 fl (7.0-11.0); MONO # 0.8 (0.1-0.6); MONO % 11.6 % (1.0-6.0); RBC 5.02 10^6/uL (3.5-6.1); RED CELL DISTRIBUTION WIDTH 27.1 % (11.5-14.5); WHITE BLOOD COUNT 6.4 10^3/uL (4.5-11.0)
[2018-10-29 08:03] LABS: INR 1.16; PARTIAL THROMBOPLASTIN TIME 34.6 Seconds (26.9-38.3); PROTHROMBIN TIME 13.1 SECONDS (9.4-12.5)
[2018-10-29] MEDS ORDERED: Esmolol 100 mg/10ml Inj IV ONE (08:03)
[2018-10-29 08:16] LABS: ALB/GLOB RATIO 1.2 (1.1-1.8); ALBUMIN 3.9 g/dL (3.0-4.8); ALT/SGPT 168 U/L (7-56); AST/SGOT 125 U/L (14-36); BLOOD UREA NITROGEN 7 mg/dL (7-21); CALCIUM 9.2 mg/dL (8.4-10.5); GFR NON-AFRICAN AMERICAN > 60
[2018-10-29] MEDS ORDERED: ePHEDrine 50 mg/ml Inj ONE (08:23)
[2018-10-29] MEDS ORDERED: CeFAZolin 1 gm in NS 100ml IVPB ONE (08:30)
[2018-10-29] MEDS ORDERED: Bupivacaine 0.5% Inj(30mL) IJ ONE ×2 (08:30)
[2018-10-29] MEDS ORDERED: MetroNIDAZOLE 500 mg/100 ml IVPB ONE (08:30)
[2018-10-29] MEDS ORDERED: metroNIDAZOLE IV 500 mg/100 ml 500 MG/100 ML BAG ONE (08:31)
[2018-10-29] MEDS ORDERED: Desflurane Inhalation Anesthetic Liq (240 ml) ONE (08:34)
--- NOTE | 2018-10-29 09:26 | CP.PCM.PN ---
Subjective - Date & Time of Evaluation Date of Evaluation: 10/29/18 Time of Evaluation: 09:24 - Subjective Subjective: Kendall Mcmahan DO, PGY-1 Hematology/Oncology Progress Note for Dr. Barlow Patient was seen and examined at bedside this AM. She reports feeling hungry this morning following liquid diet and bowel prep for OR today. She otherwise offers no additional complaints and denies fever/chills, CP, SOB, abd pain/nausea/vomiting, or urinary complaints. Objective - Vital Signs/Intake and Output Vital Signs (last 24 hours): Temp Pulse Resp BP Pulse Ox 98.4 F 65 20 183/73 H 96 10/29/18 08:51 10/29/18 08:51 10/29/18 08:51 10/29/18 08:51 10/29/18 08:51 Intake and Output: 10/29/18 10/29/18 06:59 18:59 Intake Total 0 480 Output Total 580 580 Balance -580 -100 - Medications Medications: Current Medications Acetaminophen (Tylenol 325mg Tab) 650 mg PO Q4H PRN PRN Reason: Pain, Mild (1-3) Alprazolam (Xanax) 0.25 mg PO BID PRN; Protocol PRN Reason: Anxiety Last Admin: 10/28/18 22:30 Dose: 0.25 mg Diphenhydramine HCl (Benadryl) 50 mg IVP HS PRN PRN Reason: Allergy symptoms Heparin Sodium (Porcine) (Heparin) 5,000 units SC Q8 [facility]; Protocol Last Admin: 10/28/18 13:26 Dose: Not Given Amino Acids (Clinimix 4.25/5 % "E" (1000 Ml)) 1,000 mls @ 42 mls/hr IV .[id number] [facility] Last Admin: 10/28/18 17:26 Dose: 42 mls/hr Lactated Ringer's (Lactated Ringer's) 1,000 mls @ 85 mls/hr IV .[id number] [facility] Last Admin: 10/28/18 17:26 Dose: 85 mls/hr Magnesium Hydroxide (Milk Of Magnesia) 30 ml PO DAILY [facility] Last Admin: 10/28/18 10:31 Dose: 30 ml Metoprolol Tartrate (Lopressor) 25 mg PO Q12 [facility] Last Admin: 10/28/18 21:12 Dose: 25 mg Ondansetron HCl (Zofran Inj) 4 mg IVP Q4H PRN PRN Reason: Nausea/Vomiting Last Admin: 10/29/18 03:46 Dose: 4 mg Pantoprazole Sodium (Protonix Inj) 40 mg IVP DAILY [facility] Last Admin: 10/28/18 10:31 Dose: 40 mg - Labs Labs: 10/29/18 07:40 10/29/18 07:40 PT 13.1 SECONDS (9.4-12.5) H 10/29/18 07:40 INR 1.16 10/29/18 07:40 APTT 34.6 Seconds (26.9-38.3) 10/29/18 07:40 - Constitutional Appears: Non-toxic, No Acute Distress - Head Exam Head Exam: ATRAUMATIC, NORMOCEPHALIC - Eye Exam Eye Exam: EOMI, PERRL - ENT Exam ENT Exam: Mucous Membranes Moist - Neck Exam Neck Exam: Full ROM. absent: Lymphadenopathy, Thyromegaly - Respiratory Exam Respiratory Exam: Clear to Ausculation Bilateral, NORMAL BREATHING PATTERN. absent: Accessory Muscle Use, Rales, Rhonchi, Wheezes, Respiratory Distress - Cardiovascular Exam Cardiovascular Exam: REGULAR RHYTHM, RRR, +S1, +S2. absent: Gallop, Rubs, Murmur - GI/Abdominal Exam GI & Abdominal Exam: Soft, Normal Bowel Sounds. absent: Guarding, Tenderness - Extremities Exam Extremities Exam: Full ROM. absent: Pedal Edema - Back Exam Back Exam: NORMAL INSPECTION - Neurological Exam Neurological Exam: Alert, Awake, Oriented x3 - Psychiatric Exam Psychiatric exam: Normal Affect, Normal Mood - Skin Skin Exam: Dry, Intact, Warm Assessment and Plan - Assessment and Plan (Free Text) Assessment: 82 yo F with PMH of anxiety who admitted for liver lesions found on abdominal US recently, and for continued abdominal pain, emesis and diarrhea. She was found on CTAP on admission to have annular neoplasm in the distal transverse colon/splenic flexure w/associated fluid in proximal colon. She also had 2 heterogenous masses in the lateral segment of L hepatic lobe. Plan: Moderately differentiated colonic adenocarcinoma with likely liver mets Colonoscopy completed Friday identified large, partially obstructing mass in the transverse colon, biopsies were taken Pathology reviewed with Dr. Queen Biopsies are consistent with moderately differentiated colonic adenocarcinoma Will send complete post-op specimen for KRAS, SILKE, BRAF oncogene activity, microsatellite instability (MSI), and PDL-1 Dr. Vela, Dr. Vasquez, and Dr. Blandon following Abdomen US completed showed bi-lobar hepatic masses Plan for OR for L hemicolectomy with probable liver bx today, will f/u liver biopsy results Per Dr. Blandon, patient is not a candidate for resection of liver lesions Post-op pain control and diet advancement per surgery team recs Patient will be a candidate for adjuvant treatment with FOLFOX backbone and ad ditional agents depending on path results May f/u with Dr. Barlow for treatments on outpatient basis post-op Thank you for this interesting consult, we will continue to follow. Patient seen, examined with, and plan discussed with my attending Dr. Cain Mcmahan, DO IM Resident PGY-1
[2018-10-29] MEDS ORDERED: Neostigmine Methylsulfate 3mg/3ml Syringe IV ONE (09:54)
[2018-10-29] MEDS ORDERED: Rocuronium 10 mg/ml (5 ml) ONE (10:20)
[2018-10-29] MEDS: Magnesium Hydroxide Susp 30 ml UD PO SCH (10:34)
--- NOTE | 2018-10-29 11:35 | PN ---
SUBJECTIVE: The patient was seen and examined at bedside on the general medical manley. No acute events overnight. She remains afebrile and hemodynamically stable. She is being taken to the OR for surgical resection of the distal transverse colon mass which pathology reports demonstrated to be invasive moderately differentiated adenocarcinoma. OBJECTIVE: VITAL SIGNS: Temperature 98, pulse 58, blood pressure 170/90, respiratory rate 20 and oxygen saturation 99% on room air. GENERAL: No apparent distress. HEENT: PERRL, EOMI. No scleral icterus. Mild conjunctival pallor is noted. NECK: No JVD. No bruits. LUNGS: Clear to auscultation. CARDIOVASCULAR: Regular rate and rhythm. Normal S1 and S2. No murmurs. ABDOMEN: Normoactive bowel sounds, soft and nondistended. Tender to palpation to lower abdomen with voluntary guarding. EXTREMITIES: No edema. NEUROLOGIC: Awake, alert and oriented x 3. No focal motor deficits. LABORATORY DATA: WBC 6.4, hemoglobin 11, hematocrit 36 and platelets 308 with MCV 71. Chemistry reviewed and unremarkable. AST 125 and ALT 168. ASSESSMENT: The patient is an 82-year-old woman with a past medical history of hyperlipidemia and anxiety disorder who presented for evaluation of a 2 month history of abdominal pain, bloating, cramping and changes in bowel habits with subsequent workup disclosing moderately differentiated adenocarcinoma of the distal transverse colon. PLAN: 1. Invasive moderately differentiated adenocarcinoma of the distal transverse colon with likely hepatic metastases. Input from Dr. Vasquez noted. Input from Dr. Vela is noted and the patient is pending surgical resection this morning. She is an intermediate risk candidate for an intermediate risk procedure. Input from Dr. Barlow noted and the appropriate studies will be sent on tissue samples to facilitate continued therapy. 2. Hepatic lesions, likely representing metastatic colorectal cancer. Input from Dr. Antonio Jay noted and an MRI is pending to determine if these lesions are amendable to surgical resection. 3. Iron-deficiency anemia, likely secondary to metastatic colorectal cancer. Continue monitor CBC daily and transfuse as needed. 4. Anxiety disorder. Continue Xanax 0.5 mg p.o. b.i.d. 5. Hyperlipidemia. Continue Lipitor 40 mg p.o. daily. 6. Prophylaxis. Continue Protonix for GI prophylaxis and Heparin for DVT prophylaxis. CODE STATUS: Full code. Charles He MD [facility] # [id number] VON
[2018-10-29] MEDS: HYDROmorphone 0.5 mg/0.5 ml ISec IVP PRN ×4 (12:07→13:56)
[2018-10-29] MEDS ORDERED: Lactated Ringer's 1,000 ML IV SCH (12:15)
--- NOTE | 2018-10-29 12:15 | PCM.SURG1 ---
Surgeon's Initial Post Op Note - Surgeon's Notes Surgeon: Dr. Vela Hooker Machine Tender: Dr. Hu, Ernie Arauz S3 Type of Anesthesia: General Endo Anesthesia Administered By: Dr. Braxton Pre-Operative Diagnosis: Left sided colonic mass w/ partial obstruction Operative Findings: see operative dictation Post-Operative Diagnosis: Transverse colonic mass w/ suspected liver metastases Operation Performed: laparascopic extended left sided hemicolectomy w/ primary anastamosis, and left liver lobe wedge biopsy Specimen/Specimens Removed: Colon Estimated Blood Loss: EBL {In ML}: 10 Blood Products Given: N/A Drains Used: No Drains Post-Op Condition: Good Date of Surgery/Procedure: 10/29/18 Time of Surgery/Procedure: 12:15
[2018-10-29] MEDS ORDERED: HYDROmorphone 0.5 mg/0.5 ml ISec ONE (12:50)
--- NOTE | 2018-10-29 12:51 | MRI ---
Date of service: 10/28/2018 PROCEDURE: MRI Abdomen with and without contrast HISTORY: Evaluate for biliary duct lesion COMPARISON: None available. TECHNIQUE: Multisequence, multiplanar MR images of the abdomen with and without gadolinium contrast enhancement. Plus MRCP imaging. 20 cc of Omniscan FINDINGS: LIVER: Unremarkable. GALLBLADDER: Gallbladder removed. The common duct measures 8 mm in diameter. There are no common duct stones. SPLEEN: Unremarkable. PANCREAS: Unremarkable. ADRENALS: Unremarkable. KIDNEYS: Unremarkable. AORTA: No aneurysm. ASCITES: None. PERITONEUM: Unremarkable. LYMPH NODES: Unremarkable. OTHER FINDINGS: None. IMPRESSION: Negative study
--- NOTE | 2018-10-29 18:03 | RAD ---
Date of service: 10/29/2018 HISTORY: PICC Placement COMPARISON: 10/21/2018 FINDINGS: The left PICC line terminates in the SVC. The nasogastric tube terminates in the stomach. LUNGS: The lungs are well inflated and clear. PLEURA: No pleural effusions or pneumothorax. CARDIOVASCULAR: The heart is normal in size. No aortic atherosclerotic calcifications present. OSSEOUS STRUCTURES: Within normal limits for the patient's age. VISUALIZED UPPER ABDOMEN: Normal. OTHER FINDINGS: None. IMPRESSION: Left PICC line terminates in the SVC. Nasogastric tube terminates in the stomach. No acute findings.
[2018-10-29] MEDS: Metoprolol 1 mg/ml Inj IVP SCH ×2 (18:10→22:47)
[2018-10-29] MEDS: Lactated Ringer's 1,000 ML IV SCH (18:10)
[2018-10-29] MEDS: metroNIDAZOLE IV 500 mg/100 ml 500 MG/100 ML BAG IVPB SCH ×2 (18:11→21:02)
[2018-10-29] MEDS: cefOXitin Sodium 1 GM in Sodium Chloride 0.9% 100 ML IV SCH ×2 (18:11→22:42)
--- NOTE | 2018-10-29 19:37 | PCM.OP ---
Operative Report - Operative Report Date of Surgery/Procedure: 10/29/18 Time of Surgery/Procedure: 13:35 Surgeon: Dr Vela Monotype Setter: Aurora Hu, PGY-2; Silvano Moon PGY-2; Ernie Dai OMS-3 Anesthesia/Sedation: General endotracheal Pre-Operative Diagnosis: Transverse colon mass, liver masses Post-Operative Diagnosis: Transverse colon mass, liver masses Indication for Surgery: Pallation of colonic obstruction, tissue diagnosis of liver masses Operative Findings: Chapis Chen is an 82F w/PMH sig for nearly obstructing transverse colon mass and multiple liver lesions previously evaluated via colonscopy and CT scan of the abdomen and pelvis. It was determined that patient would benefit from pall ative surgical intervention. Patient was consented for left hemicolectomy with possible primary anastomosis, possible ostomy and all other indicated procedures. All risks and benefits were discussed with patient and family prior to procedure. All questions were answered. Patient consented to pallative surgical intervention. Patient was brought into the operative room and laid supine upon the operating table. A time out was performed identifying the patient, procedure and laterality. Patient was prepped and draped in the usual sterile fashion. An infraumbilical midline incision was made, dissection was carried down the fascia. A Veress needle was inserted and insufflation was introduced. A 12mm trochar was then introduced and the laparoscope was inserted. The abdominal cavity was evaluated, no enterotomies were noted. There were multiple masses noted on the surface of the left lateral liver and right superior liver. No lesions on the periotoneum were noted. There were multiple adhesions noted on the anterior abdominal wall in the right upper quadrant and epigastrium. A 5 mm port was placed in the superior right lower quadrant and the right lower quadrant. The epigastric adhesions were lysed without complications to the level of the liver. A small amount of mesenteric bleeding was noted and hemostasis was achieved using electrocautery. The mesentery of the left upper quadrant was transected and the splenic flexure was mobilized. The transverse and sigmoid colon were then mobilized. The mass was identified in the transverse colon, just to the right of midline. An omentectomy of the splenic flexure was performed. The infra-umbilical port incision was extended superiorly to the mid epigastrium and a hand assist port was placed. A wedge biopsy of the left late ral lobe of the liver was performed and hemostasis was achieved with electrocautery. The bowel was exteriorized and the transverse and sigmoid colon were divided, taking approximately 5 cm proximally of the transverse colon and 10 cm distally of the sigmoid colon from the site of the transverse colon tumor , preserving the left branch of the left colic artery. The remainder of the bowel was evaluated for lesions, none were noted. The proximal transverse colon and remaining sigmoid colon anti-mesenteric sides were then anastomosed in a side to side fashion using a PIYUSH stapler and a TA linear stapler. A suture was placed inferior to the PIYUSH staple line. Suture lines were noted to be hemostatic. The bowel was returned to the intrabdominal cavity. The cavity was re-evaluated for hemostasis- no bleeding was noted. The fascia was closed using 2-0 PDS with good approximation. Two preperitoneal cathers were introduced parallel to the midline incision and primed with 10 cc of Bupivicaine each. Deep dermal interrupted sutures were placed. The skin was closed using 4-0 in a running subcuticular fashion. All port incisions were closed using 4-0 Monocryl. Surgical glue was applied. to all skin incisions. All sutures, sponges and instrument counts were declared to be correct at the end of the procedure. The patient was extubated and taken to the post operative anesthesia unit in stable condition. In the PACU, the pre peritoneal catheters were cleaned and hooked up to a plastic ball filled with Bupivicaine for local anesthesia delivery. No complications were noted. Procedure/Operation Description: Laparoscopic with hand assisted extended left hemicolectomy with primary anastomosis, Wedge liver biopsy of left lateral lobe and omentectomy Estimated Blood Loss: 10cc Blood Replaced: none Sponge/Instrument Count: Declared to be correct at end of surgery Drains: None Complications: none Specimen: Liver biopsy, transverse colon and sigmoid colon Discharge & Condition: stable in PACU, for transfer to floor
[2018-10-29] MEDS ORDERED: Phenol Topical 1.4% Throat Spray (180 ml) MT PRN ×2 (20:20→21:19)
--- NOTE | 2018-10-29 21:25 | PN ---
DATE: 10/29/2018 REFERRING PHYSICIAN: . REASON FOR CONSULTATION: Followup, preop evaluation, risk stratification for colon surgery, status post followup. SUBJECTIVE: The patient is status post followup in 3R, 371, bed 2. Awake and alert. NG tube in position. Son-in-law is at the bedside. PHYSICAL EXAMINATION: As follows: VITAL SIGNS: Temperature afebrile, heart rate 86, blood pressure 106/68. HEENT: PERRLA. Extraocular muscles are intact. NECK: Supple. No carotid bruits. No thyromegaly. CHEST: Clear to auscultation. ABDOMEN: Postsurgical abdomen. EXTREMITIES: Clubbing and cyanosis negative. LABORATORY DATA: Blood workup as follows: WBC 6.5, hemoglobin 10.8, hematocrit 35.6, platelet count 308. Chemistry shows sodium 137, potassium 3.3, chloride 103, carbon dioxide of 27, anion gap of 13, BUN 7, creatinine 0.5. IMPRESSION: An 82-year-old female with colonic mass, left sided with partial obstruction, underwent exploratory laparotomy, left-sided laparoscopic hemicolectomy, and primary anastomosis with lobe of liver resection biopsy. The patient will continue in 3R nothing by mouth. The patient had an echocardiography done yesterday preoperative that revealed normal left ventricular function, normal segmental wall motion abnormality, mild mitral regurgitation, moderate tricuspid regurgitation, [id number] pulmonary hypertension with a blood pressure of 51 reported. RECOMMENDATION: Continue IV fluid. The patient is n.p.o. We will change the beta kingsley to IV every 6 hours to prevent going to Afib. We will follow with you. Thank you Dr. He for providing us opportunity in taking care of the patient, Chapis Chen. We will follow with you. We will repeat magnesium and phosphate levels in the morning as well. Salome Sanders MD
[2018-10-30] MEDS: Metoprolol 1 mg/ml Inj IVP SCH (05:46)
[2018-10-30 05:55] LABS: BASO # 0.01 K/mm3 (0.0-2.0); BASO % 0.1 % (0.0-3.0); EOS % 0.3 % (1.5-5.0); LYMPH % 8.2 % (22.0-35.0); MEAN CELL VOLUME 71.1 fl (80.0-105.0); MEAN PLATELET VOLUME 9.3 fl (7.0-11.0); MONO # 1.1 (0.1-0.6); MONO % 8.7 % (1.0-6.0); RBC 4.54 10^6/uL (3.5-6.1); RED CELL DISTRIBUTION WIDTH 27.7 % (11.5-14.5); WHITE BLOOD COUNT 12.4 10^3/uL (4.5-11.0)
[2018-10-30 06:02] LABS: ALB/GLOB RATIO 0.9 (1.1-1.8); ALBUMIN 2.9 g/dL (3.0-4.8); ALT/SGPT 111 U/L (7-56); AST/SGOT 83 U/L (14-36); BLOOD UREA NITROGEN 13 mg/dL (7-21); CALCIUM 8.8 mg/dL (8.4-10.5); GFR NON-AFRICAN AMERICAN > 60
--- NOTE | 2018-10-30 06:46 | CP.PCM.PN ---
<Kunal Olson - Last Filed: 10/30/18 11:24> Subjective - Date & Time of Evaluation Date of Evaluation: 10/30/18 Time of Evaluation: 08:08 - Subjective Subjective: Kunal Olson PGY2 GI Progress Note for Dr. Vasquez Patient was seen and examined at bedside. Patient still has abdominal tenderness and is not passing gas yet. There were no fevers overnight. NGT was removed. Objective - Vital Signs/Intake and Output Vital Signs (last 24 hours): Temp Pulse Resp BP Pulse Ox 97.8 F 59 L 12 150/84 96 10/29/18 13:14 10/30/18 06:12 10/29/18 13:14 10/30/18 06:12 10/29/18 13:14 Intake and Output: 10/29/18 10/30/18 18:59 06:59 Intake Total 480 0 Output Total 580 1050 Balance -100 -1050 - Medications Medications: Current Medications Acetaminophen (Tylenol 325mg Tab) 650 mg PO Q4H PRN PRN Reason: Pain, Mild (1-3) Last Admin: 10/29/18 22:30 Dose: 650 mg Alprazolam (Xanax) 0.25 mg PO BID PRN; Protocol PRN Reason: Anxiety Last Admin: 10/28/18 22:30 Dose: 0.25 mg Benzocaine/Menthol (Cepacol Sore Throat) 1 eddy MT Q2H PRN PRN Reason: Sore Throat Diphenhydramine HCl (Benadryl) 50 mg IVP HS PRN PRN Reason: Allergy symptoms Heparin Sodium (Porcine) (Heparin) 5,000 units SC Q8 [facility]; Protocol Last Admin: 10/28/18 13:26 Dose: Not Given Amino Acids (Clinimix 4.25/5 % "E" (1000 Ml)) 1,000 mls @ 42 mls/hr IV .[id number] [facility] Last Admin: 10/29/18 18:09 Dose: 42 mls/hr Lactated Ringer's (Lactated Ringer's) 1,000 mls @ 85 mls/hr IV .[id number] [facility] Last Admin: 10/29/18 18:10 Dose: 85 mls/hr Ketorolac Tromethamine (Toradol) 15 mg IVP Q6 [facility] Last Admin: 10/30/18 06:12 Dose: 15 mg Magnesium Hydroxide (Milk Of Magnesia) 30 ml PO DAILY [facility] Last Admin: 10/29/18 10:34 Dose: Not Given Metoprolol Tartrate (Lopressor) 5 mg IVP Q6H [facility] Last Admin: 10/30/18 05:46 Dose: Not Given Ondansetron HCl (Zofran Inj) 4 mg IVP Q4H PRN PRN Reason: Nausea/Vomiting Last Admin: 10/29/18 03:46 Dose: 4 mg Pantoprazole Sodium (Protonix Inj) 40 mg IVP DAILY [facility] Last Admin: 10/29/18 10:34 Dose: Not Given Phenol/Menthol (Phenaseptic 1.4% Throat [place]) 1 ml MT Q1H PRN PRN Reason: Sore Throat - Labs Labs: 10/30/18 05:01 10/30/18 05:01 PT 13.1 SECONDS (9.4-12.5) H 10/29/18 07:40 INR 1.16 10/29/18 07:40 APTT 34.6 Seconds (26.9-38.3) 10/29/18 07:40 - Constitutional Appears: Well, Non-toxic, No Acute Distress - Head Exam Head Exam: ATRAUMATIC, NORMAL INSPECTION, NORMOCEPHALIC - Eye Exam Eye Exam: EOMI, Normal appearance, PERRL Pupil Exam: NORMAL ACCOMODATION, PERRL - ENT Exam ENT Exam: Mucous Membranes Moist, Normal Exam - Neck Exam Neck Exam: Full ROM, Normal Inspection. absent: Lymphadenopathy - Respiratory Exam Respiratory Exam: Clear to Ausculation Bilateral, NORMAL BREATHING PATTERN. absent: Respiratory Distress - Cardiovascular Exam Cardiovascular Exam: REGULAR RHYTHM, +S1, +S2. absent: Murmur - GI/Abdominal Exam GI & Abdominal Exam: Soft. absent: Distended, Tenderness Additional comments: midline post-op scar intra-abdominal anesthetic infusion device in place - Extremities Exam Extremities Exam: Full ROM, Normal Capillary Refill, Normal Inspection. absent: Joint Swelling, Pedal Edema - Neurological Exam Neurological Exam: Alert, Awake, Normal Gait, Oriented x3 - Skin Skin Exam: Dry, Intact, Normal Color, Warm Assessment and Plan - Assessment and Plan (Free Text) Assessment: 82 year old female with a PMH of HLD and anxiety who is admitted for liver lesions found on abdominal US recently, and for continued abdominal pain, emesis and diarrhea. CT Abd/pelvis reviewed showing a mass in the splenic flexure, and 2 liver masses; pancreas has no lesions. Anemia is noted but stable. s/p colonoscopy 10/26 in which scope could not be advanced due to transverse colon mass, which was biopsied and showed invasive moderately differentiated adenocarcinoma. Liver enzyme elevations noted but likely due to liver lesions, improving. POD 1 lap left hemicolectomy and wedge liver biopsy. Plan: - no further endoscopic procedures indicated at this time - cont diet as tolerated, and advance per surgery - monitor H/H - cepacol prn sore throat - zofran prn n/v - PPI for GI ppx - DVT ppx - Oncology is folllowing; patient will require outpatient follow-up and treatment - further recs per Dr. Vasquez Case was reviewed and discussed with Dr. Vasquez <Norma Vasquez V - Last Filed: 10/30/18 21:46> Objective - Vital Signs/Intake and Output Vital Signs (last 24 hours): Temp Pulse Resp BP Pulse Ox 98.2 F 71 20 152/89 H 97 10/30/18 18:00 10/30/18 18:00 10/30/18 18:00 10/30/18 18:00 10/30/18 18:00 Intake and Output: 10/30/18 10/31/18 18:59 06:59 Intake Total 1045 660 Output Total 125 300 Balance 920 360 - Medications Medications: Current Medications Acetaminophen (Tylenol 325mg Tab) 650 mg PO Q4H PRN PRN Reason: Pain, Mild (1-3) Last Admin: 10/29/18 22:30 Dose: 650 mg Alprazolam (Xanax) 0.25 mg PO BID PRN; Protocol PRN Reason: Anxiety Last Admin: 10/28/18 22:30 Dose: 0.25 mg Atorvastatin Calcium (Lipitor) 40 mg PO DIN [facility] Last Admin: 10/30/18 17:57 Dose: 40 mg Benzocaine/Menthol (Cepacol Sore Throat) 1 eddy MT Q2H PRN PRN Reason: Sore Throat Last Admin: 10/30/18 16:38 Dose: 1 eddy Diphenhydramine HCl (Benadryl) 50 mg IVP HS PRN PRN Reason: Allergy symptoms Heparin Sodium (Porcine) (Heparin) 5,000 units SC Q8 [facility]; Protocol Last Admin: 10/30/18 13:00 Dose: 5,000 units Potassium Chloride 20 meq/ (Dextrose/Sodium Chloride) 1,010 mls @ 115 mls/hr IV .Q8H47M [facility] Last Admin: 10/30/18 20:23 Dose: 115 mls/hr Metoprolol Tartrate (Lopressor) 25 mg PO BID [facility] Last Admin: 10/30/18 17:57 Dose: 25 mg Ondansetron HCl (Zofran Inj) 4 mg IVP Q4H PRN PRN Reason: Nausea/Vomiting Last Admin: 10/29/18 03:46 Dose: 4 mg Oxycodone/Acetaminophen (Percocet 5/325 Mg Tab) 1 tab PO Q4H PRN PRN Reason: Pain, moderate (4-7) Stop: 11/02/18 17:27 Last Admin: 10/30/18 17:57 Dose: 1 tab Pantoprazole Sodium (Protonix Inj) 40 mg IVP DAILY [facility] Last Admin: 10/30/18 09:04 Dose: 40 mg Phenol/Menthol (Phenaseptic 1.4% Throat [place]) 1 ml MT Q1H PRN PRN Reason: Sore Throat - Labs Labs: 10/30/18 05:01 10/30/18 05:01 PT 13.1 SECONDS (9.4-12.5) H 10/29/18 07:40 INR 1.16 10/29/18 07:40 APTT 34.6 Seconds (26.9-38.3) 10/29/18 07:40 Attending/Attestation - Attestation I have personally seen and examined this patient.: Yes I have fully participated in the care of the patient.: Yes I have reviewed all pertinent clinical information, including history, physical exam and plan: Yes Notes (Text): This is an addendum to the GI progress report dictated by the resident. The patient was seen and evaluated along with the resident earlier. Status post extended left hemicolectomy. LFT shows some improvement. Postop as per surgery Follow-up LFT 10/30/18 21:44
--- NOTE | 2018-10-30 07:33 | CP.PCM.PN ---
Subjective - Date & Time of Evaluation Date of Evaluation: 10/30/18 Time of Evaluation: 06:55 - Subjective Subjective: Awake, alert, lying in bed, feels pain Reason for consultation and follow up: Post op follow up, status post laparoscopic hemicolectomy, history of hyperlipidemia Seen and examined by me and Dr. Sanders Objective - Vital Signs/Intake and Output Vital Signs (last 24 hours): Temp Pulse Resp BP Pulse Ox 97.8 F 59 L 12 150/84 96 10/29/18 13:14 10/30/18 06:12 10/29/18 13:14 10/30/18 06:12 10/29/18 13:14 Intake and Output: 10/30/18 10/30/18 06:59 18:59 Intake Total 0 Output Total 1050 125 Balance -1050 -125 - Medications Medications: Current Medications Acetaminophen (Tylenol 325mg Tab) 650 mg PO Q4H PRN PRN Reason: Pain, Mild (1-3) Last Admin: 10/29/18 22:30 Dose: 650 mg Alprazolam (Xanax) 0.25 mg PO BID PRN; Protocol PRN Reason: Anxiety Last Admin: 10/28/18 22:30 Dose: 0.25 mg Benzocaine/Menthol (Cepacol Sore Throat) 1 eddy MT Q2H PRN PRN Reason: Sore Throat Diphenhydramine HCl (Benadryl) 50 mg IVP HS PRN PRN Reason: Allergy symptoms Heparin Sodium (Porcine) (Heparin) 5,000 units SC Q8 [facility]; Protocol Last Admin: 10/28/18 13:26 Dose: Not Given Potassium Chloride 20 meq/ (Dextrose/Sodium Chloride) 1,010 mls @ 115 mls/hr IV .Q8H47M [facility] Ketorolac Tromethamine (Toradol) 15 mg IVP Q6 [facility] Last Admin: 10/30/18 06:12 Dose: 15 mg Magnesium Hydroxide (Milk Of Magnesia) 30 ml PO DAILY [facility] Last Admin: 10/29/18 10:34 Dose: Not Given Metoprolol Tartrate (Lopressor) 5 mg IVP Q6H [facility] Last Admin: 10/30/18 05:46 Dose: Not Given Ondansetron HCl (Zofran Inj) 4 mg IVP Q4H PRN PRN Reason: Nausea/Vomiting Last Admin: 10/29/18 03:46 Dose: 4 mg Pantoprazole Sodium (Protonix Inj) 40 mg IVP DAILY [facility] Last Admin: 10/29/18 10:34 Dose: Not Given Phenol/Menthol (Phenaseptic 1.4% Throat [place]) 1 ml MT Q1H PRN PRN Reason: Sore Throat - Labs Labs: 10/30/18 05:01 10/30/18 05:01 PT 13.1 SECONDS (9.4-12.5) H 10/29/18 07:40 INR 1.16 10/29/18 07:40 APTT 34.6 Seconds (26.9-38.3) 10/29/18 07:40 - Constitutional Appears: Non-toxic, No Acute Distress - Head Exam Head Exam: NORMAL INSPECTION, NORMOCEPHALIC - Eye Exam Eye Exam: Normal appearance Pupil Exam: NORMAL ACCOMODATION - ENT Exam ENT Exam: Mucous Membranes Dry - Respiratory Exam Respiratory Exam: Decreased Breath Sounds, Clear to Ausculation Bilateral, NORMAL BREATHING PATTERN - Cardiovascular Exam Cardiovascular Exam: REGULAR RHYTHM, +S1, +S2 - GI/Abdominal Exam GI & Abdominal Exam: Soft, Normal Bowel Sounds Additional comments: laparoscopic port sites no bleeding - Extremities Exam Extremities Exam: Full ROM, Normal Capillary Refill - Neurological Exam Neurological Exam: Alert, Awake, Oriented x3 - Psychiatric Exam Psychiatric exam: Normal Affect, Normal Mood - Skin Skin Exam: Dry, Normal Color, Warm Assessment and Plan - Assessment and Plan (Free Text) Assessment: An 82 year old female who came in to the [facility] due to abdominal pain and diarrhea. Consult was called to for risk stratification and cardiac clearance for abdominal surgery. History of hyperlipidemia and anxiety. Weight loss for the past few months. CT of abdomen showed annular neoplasm in the distal transverse colon/splenic flexure, mass on the lateral segment of the left hepatic lobe. Patient denies chest pain or shortness of breath. EKG-normal sinus rhythm, Chest X ray -normal. No evidence of myocardial ischemia or heart failure. Echo done and showed LVEF 55%, mild MR, moderate TR, moderate pulmonary hypertension. Status post laparoscopic extended left sided hemicolectomy with primary anastomosis and left liver lobe wedge biopsy POD #1. Complaining of surgical pain. PRN medicine given. Cardiac status stable. Plan: Status post left hemicolectomy with liver wedge biopsy POD #1 Cardiac status stable Heart rate and blood pressure stable On IV Lopressor, will switch to oral today Continue antibiotics as ordered Continue current management OOB to chair Inspirex spirometer while awake Will follow up Plan and treatment discussed with
--- NOTE | 2018-10-30 08:03 | CP.PCM.PN ---
Subjective - Date & Time of Evaluation Date of Evaluation: 10/30/18 Time of Evaluation: 08:03 - Subjective Subjective: Kendall Mcmahan DO, PGY-1 Hematology/Oncology Progress Note for Dr. Barlow Patient was seen and examined at bedside this AM. She is s/p extended left hemicolectomy with primary anastomosis, Wedge liver biopsy of left lateral lobe and omentectomy yesterday. She complains of abdominal pain near the incision site this morning but has otherwise been tolerating liquid diet well without nausea/vomiting. She states her pain is controlled with IV pain medicines. She otherwise denies fever/chills, CP, SOB, nausea/vomiting/diarrhea, or urinary complaints. Objective - Vital Signs/Intake and Output Vital Signs (last 24 hours): Temp Pulse Resp BP Pulse Ox 97.8 F 59 L 12 150/84 96 10/29/18 13:14 10/30/18 06:12 10/29/18 13:14 10/30/18 06:12 10/29/18 13:14 Intake and Output: 10/30/18 10/30/18 06:59 18:59 Intake Total 0 Output Total 1050 125 Balance -1050 -125 - Medications Medications: Current Medications Acetaminophen (Tylenol 325mg Tab) 650 mg PO Q4H PRN PRN Reason: Pain, Mild (1-3) Last Admin: 10/29/18 22:30 Dose: 650 mg Alprazolam (Xanax) 0.25 mg PO BID PRN; Protocol PRN Reason: Anxiety Last Admin: 10/28/18 22:30 Dose: 0.25 mg Atorvastatin Calcium (Lipitor) 40 mg PO DIN [facility] Benzocaine/Menthol (Cepacol Sore Throat) 1 eddy MT Q2H PRN PRN Reason: Sore Throat Diphenhydramine HCl (Benadryl) 50 mg IVP HS PRN PRN Reason: Allergy symptoms Heparin Sodium (Porcine) (Heparin) 5,000 units SC Q8 [facility]; Protocol Last Admin: 10/28/18 13:26 Dose: Not Given Potassium Chloride 20 meq/ (Dextrose/Sodium Chloride) 1,010 mls @ 115 mls/hr IV .Q8H47M [facility] Ketorolac Tromethamine (Toradol) 15 mg IVP Q6 [facility] Last Admin: 04/05/19 06:12 Dose: 15 mg Magnesium Hydroxide (Milk Of Magnesia) 30 ml PO DAILY [facility] Last Admin: 10/29/18 10:34 Dose: Not Given Metoprolol Tartrate (Lopressor) 25 mg PO BID [facility] Ondansetron HCl (Zofran Inj) 4 mg IVP Q4H PRN PRN Reason: Nausea/Vomiting Last Admin: 10/29/18 03:46 Dose: 4 mg Pantoprazole Sodium (Protonix Inj) 40 mg IVP DAILY [facility] Last Admin: 10/29/18 10:34 Dose: Not Given Phenol/Menthol (Phenaseptic 1.4% Throat [place]) 1 ml MT Q1H PRN PRN Reason: Sore Throat - Labs Labs: 10/30/18 05:01 10/30/18 05:01 PT 13.1 SECONDS (9.4-12.5) H 10/29/18 07:40 INR 1.16 10/29/18 07:40 APTT 34.6 Seconds (26.9-38.3) 10/29/18 07:40 - Constitutional Appears: Non-toxic, No Acute Distress - Head Exam Head Exam: ATRAUMATIC, NORMOCEPHALIC - Eye Exam Eye Exam: EOMI, PERRL - ENT Exam ENT Exam: Mucous Membranes Moist - Neck Exam Neck Exam: absent: Lymphadenopathy, Thyromegaly - Respiratory Exam Respiratory Exam: Clear to Ausculation Bilateral, NORMAL BREATHING PATTERN. absent: Rales, Rhonchi, Wheezes - Cardiovascular Exam Cardiovascular Exam: REGULAR RHYTHM, RRR, +S1, +S2. absent: Gallop, Rubs, Murmur - GI/Abdominal Exam GI & Abdominal Exam: Tenderness (worst near incision site). absent: Guarding, Rebound Additional comments: Midline keyhole incision covered with dressing with no drainage and minimal erythema - Extremities Exam Extremities Exam: Full ROM. absent: Pedal Edema - Back Exam Back Exam: NORMAL INSPECTION - Neurological Exam Neurological Exam: Alert, Awake, Oriented x3 - Psychiatric Exam Psychiatric exam: Normal Affect, Normal Mood - Skin Skin Exam: Dry, Intact, Warm Assessment and Plan - Assessment and Plan (Free Text) Assessment: 82 yo F with PMH of anxiety who admitted for liver lesions found on abdominal US recently, and for continued abdominal pain, emesis and diarrhea. She was found on CTAP on admission to have annular neoplasm in the distal transverse colon/splenic flexure w/associated fluid in proximal colon. She also had he terogenous masses in the lateral segment of L hepatic lobe. Patient is now s/p extended left hemicolectomy with primary anastomosis, wedge liver biopsy of left lateral lobe, and omentectomy POD 1. Plan: Moderately differentiated colonic adenocarcinoma with likely liver mets Colonoscopy completed Friday identified large, partially obstructing mass in the transverse colon, biopsies were taken Pathology reviewed with Dr. Queen Colonoscopy biopsies are consistent with moderately differentiated colonic adenocarcinoma Left hemicolectomy with primary anastomosis, Wedge liver biopsy of left lateral lobe, and omentectomy completed yesterday Send excised mass for KRAS, SILKE, BRAF oncogene activity, microsatellite instability (MSI), and PDL-1 Patient is not a candidate for resection of liver lesions given bi-lobar disease Post-op pain control and diet advancement per surgery team recs Patient will be a candidate for adjuvant treatment with FOLFOX backbone and additional agents depending on path results May f/u with Dr. Barlow for treatments on outpatient basis post-op F/u PT recs for post-op recovery Dr. Vela, Dr. Vasquez, and Dr. Blandon following, all recs appreciated Thank you for this interesting consult, we will continue to follow. Patient seen, examined with, and plan discussed with my attending Dr. Cain Mcmahan, DO IM Resident PGY-1
[2018-10-30] MEDS: Magnesium Hydroxide Susp 30 ml UD PO SCH (09:04)
[2018-10-30] MEDS: Potassium Chloride 20 MEQ in Dextrose 5%/0.45% NS 1,000 ML IV SCH ×2 (10:13→20:23)
[2018-10-30] MEDS: Benzocaine/Menthol (Cepacol) Lozenge MT PRN ×2 (12:59→16:38)
--- NOTE | 2018-10-30 13:17 | CP.PCM.PN ---
Subjective - Date & Time of Evaluation Date of Evaluation: 10/30/18 Time of Evaluation: 13:13 - Subjective Subjective: Surgery Progress Note for Dr. Vela 82F seen and evaluated at bedside this morning. No acute events overnight. Patient complaining of pain but well controlled with onQ and medication. No bowel function at this time. Did not ambulate or OOBTC. Denies n/v/d, SOB, CP, or urinary symptoms. Objective - Vital Signs/Intake and Output Vital Signs (last 24 hours): Temp Pulse Resp BP Pulse Ox 98.0 F 147 H 18 150/80 97 10/30/18 07:30 10/30/18 09:04 10/30/18 07:30 10/30/18 09:04 10/30/18 07:30 Intake and Output: 10/30/18 10/30/18 06:59 18:59 Intake Total 0 Output Total 1050 125 Balance -1050 -125 - Medications Medications: Current Medications Acetaminophen (Tylenol 325mg Tab) 650 mg PO Q4H PRN PRN Reason: Pain, Mild (1-3) Last Admin: 10/29/18 22:30 Dose: 650 mg Alprazolam (Xanax) 0.25 mg PO BID PRN; Protocol PRN Reason: Anxiety Last Admin: 10/28/18 22:30 Dose: 0.25 mg Atorvastatin Calcium (Lipitor) 40 mg PO DIN [facility] Benzocaine/Menthol (Cepacol Sore Throat) 1 eddy MT Q2H PRN PRN Reason: Sore Throat Last Admin: 10/30/18 12:59 Dose: 1 eddy Diphenhydramine HCl (Benadryl) 50 mg IVP HS PRN PRN Reason: Allergy symptoms Heparin Sodium (Porcine) (Heparin) 5,000 units SC Q8 [facility]; Protocol Last Admin: 10/30/18 13:00 Dose: 5,000 units Potassium Chloride 20 meq/ (Dextrose/Sodium Chloride) 1,010 mls @ 115 mls/hr IV .Q8H47M [facility] Last Admin: 10/30/18 10:13 Dose: 115 mls/hr Metoprolol Tartrate (Lopressor) 25 mg PO BID [facility] Last Admin: 10/30/18 09:04 Dose: 25 mg Ondansetron HCl (Zofran Inj) 4 mg IVP Q4H PRN PRN Reason: Nausea/Vomiting Last Admin: 10/29/18 03:46 Dose: 4 mg Pantoprazole Sodium (Protonix Inj) 40 mg IVP DAILY [facility] Last Admin: 10/30/18 09:04 Dose: 40 mg Phenol/Menthol (Phenaseptic 1.4% Throat [place]) 1 ml MT Q1H PRN PRN Reason: Sore Throat - Labs Labs: 10/30/18 05:01 10/30/18 05:01 PT 13.1 SECONDS (9.4-12.5) H 10/29/18 07:40 INR 1.16 10/29/18 07:40 APTT 34.6 Seconds (26.9-38.3) 10/29/18 07:40 - Constitutional Appears: Well, Non-toxic, No Acute Distress - Head Exam Head Exam: ATRAUMATIC, NORMAL INSPECTION, NORMOCEPHALIC - Eye Exam Eye Exam: EOMI - ENT Exam ENT Exam: Mucous Membranes Moist - Respiratory Exam Respiratory Exam: NORMAL BREATHING PATTERN. absent: Wheezes, Respiratory Distress - Cardiovascular Exam Cardiovascular Exam: REGULAR RHYTHM, +S1, +S2. absent: Murmur - GI/Abdominal Exam GI & Abdominal Exam: Soft, Tenderness, Normal Bowel Sounds Additional comments: Midline keyhole incision dressing removed, wound clean, dry, with ever intact Mild erythema noted, no drainage - Neurological Exam Neurological Exam: Alert, Awake, Oriented x3 - Psychiatric Exam Psychiatric exam: Normal Affect, Normal Mood - Skin Skin Exam: Dry, Intact, Normal Color, Warm Assessment and Plan - Assessment and Plan (Free Text) Assessment: 82F s/p extended right hemicolectomy with primary anastamosis POD1 Plan: Advanced to CLD Fluids: D5 1/2NS w/ 20K @115cc/hr Restarted PO medication Discontinued dilaudid for pain [place] and NGT removed - patient voiding and tolerating diet Aggressive PT Encourage IS and ambulation, OOBTC Monitor return of bowel function DVT ppx started D/w Dr. Dane Sánchez PGY1
--- NOTE | 2018-10-30 14:41 | PN ---
DATE: 10/30/2018 LOCATION: She is currently in room 371, bed 2. SUBJECTIVE: The patient is an 82-year-old female status post partial colectomy with liver biopsy performed yesterday. Apart from some mild abdominal pain at the incision site, she has no complaints and there have been no acute events overnight. PHYSICAL EXAMINATION: VITAL SIGNS: Temperature is 98, pulse rate of 59, blood pressure of 150/84, respiratory rate of 18 with an O2 saturation of 97%. HEENT: PERRLA. EOMI. There is no icterus. NECK: Full range of motion. No bruits or adenopathy appreciated. LUNGS: Clear to auscultation and percussion bilaterally. HEART: Regular rate and rhythm. ABDOMEN: Soft. There is some tenderness over the puncture site from the surgery. Bowel sounds are absent. EXTREMITIES: No deformities or edema. NEUROLOGIC: There are no focal motor deficits. LABORATORY DATA: CBC: White blood count of 12.4, hemoglobin and hematocrit of 10 and 32.3. Chemistry: Random glucose of 115, AST of 83, ALT of 111, total bilirubin of 0.3. IMPRESSION: At this time is carcinoma of the colon and hyperlipidemia. Hilario He MD
[2018-10-30] MEDS: Oxycodone/Acetaminophen 5/325 mg Tab PO PRN ×2 (17:57→22:03)
--- NOTE | 2018-10-30 19:23 | CARD ---
APPROVED REPORT Date of service: 10/30/2018 EKG Measurement Heart [id number] <Conclusion> Supraventricular tachycardia Nonspecific ST-T changes Abnormal ECG
[2018-10-31] MEDS: Benzocaine/Menthol (Cepacol) Lozenge MT PRN (05:16)
[2018-10-31] MEDS: Oxycodone/Acetaminophen 5/325 mg Tab PO PRN (05:18)
[2018-10-31] MEDS: Potassium Chloride 20 MEQ in Dextrose 5%/0.45% NS 1,000 ML IV SCH ×2 (05:18→09:42)
[2018-10-31 06:10] LABS: BASO # 0.01 K/mm3 (0.0-2.0); BASO % 0.1 % (0.0-3.0); EOS # 0.1 (0.0-0.7); EOS % 1.2 % (1.5-5.0); HEMOGLOBIN 9.5 g/dL (12.0-16.0); LYMPH % 9.7 % (22.0-35.0); MEAN CELL VOLUME 71.2 fl (80.0-105.0); MEAN CORPUSCULAR HEMOGLOBIN 21.7 pg (25.0-35.0); MEAN CORPUSCULAR HGB CONC 30.5 g/dl (31.0-37.0); MEAN PLATELET VOLUME 9.9 fl (7.0-11.0); MONO % 9.9 % (1.0-6.0); RBC 4.37 10^6/uL (3.5-6.1); RED CELL DISTRIBUTION WIDTH 27.9 % (11.5-14.5); WHITE BLOOD COUNT 10.4 10^3/uL (4.5-11.0)
[2018-10-31 06:23] LABS: ALB/GLOB RATIO 1.1 (1.1-1.8); ALT/SGPT 82 U/L (7-56); AST/SGOT 41 U/L (14-36); BLOOD UREA NITROGEN 7 mg/dL (7-21); CALCIUM 8.8 mg/dL (8.4-10.5); GFR NON-AFRICAN AMERICAN > 60
[2018-10-31] MEDS ORDERED: Potassium Chloride 20 mEq ER Tab PO ONE (08:57)
--- NOTE | 2018-10-31 08:58 | CP.PCM.PN ---
Subjective - Date & Time of Evaluation Date of Evaluation: 10/31/18 Time of Evaluation: 08:57 - Subjective Subjective: General Surgery Dr. Vela Pt seen and examined @bedside. No acute events overnight. Pt reports feeling not well today. admits to abd discomfort. poor PO intake. denies fever, chills, nausea, vomiting. (+)BM/Flatus Objective - Vital Signs/Intake and Output Vital Signs (last 24 hours): Temp Pulse Resp BP Pulse Ox 98 F 75 20 156/77 H 96 10/31/18 08:28 10/31/18 08:28 10/31/18 08:28 10/31/18 08:28 10/31/18 08:28 Intake and Output: 10/31/18 10/31/18 06:59 18:59 Intake Total 1380 Output Total 1300 Balance 80 - Medications Medications: Current Medications Acetaminophen (Tylenol 325mg Tab) 650 mg PO Q4H PRN PRN Reason: Pain, Mild (1-3) Last Admin: 10/29/18 22:30 Dose: 650 mg Alprazolam (Xanax) 0.25 mg PO BID PRN; Protocol PRN Reason: Anxiety Last Admin: 10/28/18 22:30 Dose: 0.25 mg Atorvastatin Calcium (Lipitor) 40 mg PO DIN [facility] Last Admin: 10/30/18 17:57 Dose: 40 mg Benzocaine/Menthol (Cepacol Sore Throat) 1 eddy MT Q2H PRN PRN Reason: Sore Throat Last Admin: 10/31/18 05:16 Dose: 1 eddy Diphenhydramine HCl (Benadryl) 50 mg IVP HS PRN PRN Reason: Allergy symptoms Heparin Sodium (Porcine) (Heparin) 5,000 units SC Q8 [facility]; Protocol Last Admin: 10/31/18 05:17 Dose: 5,000 units Potassium Chloride 20 meq/ (Dextrose/Sodium Chloride) 1,010 mls @ 115 mls/hr IV .Q8H47M [facility] Last Admin: 10/31/18 05:18 Dose: 115 mls/hr Metoprolol Tartrate (Lopressor) 25 mg PO BID [facility] Last Admin: 10/30/18 17:57 Dose: 25 mg Ondansetron HCl (Zofran Inj) 4 mg IVP Q4H PRN PRN Reason: Nausea/Vomiting Last Admin: 10/29/18 03:46 Dose: 4 mg Oxycodone/Acetaminophen (Percocet 5/325 Mg Tab) 1 tab PO Q4H PRN PRN Reason: Pain, moderate (4-7) Stop: 11/02/18 17:27 Last Admin: 10/31/18 05:18 Dose: 1 tab Pantoprazole Sodium (Protonix Inj) 40 mg IVP DAILY [facility] Last Admin: 10/30/18 09:04 Dose: 40 mg Phenol/Menthol (Phenaseptic 1.4% Throat [place]) 1 ml MT Q1H PRN PRN Reason: Sore Throat - Labs Labs: 10/31/18 05:30 10/31/18 05:30 PT 13.1 SECONDS (9.4-12.5) H 10/29/18 07:40 INR 1.16 10/29/18 07:40 APTT 34.6 Seconds (26.9-38.3) 10/29/18 07:40 - Constitutional Appears: Non-toxic, No Acute Distress - Head Exam Head Exam: NORMAL INSPECTION - Eye Exam Eye Exam: Normal appearance - ENT Exam ENT Exam: Mucous Membranes Moist - Respiratory Exam Respiratory Exam: NORMAL BREATHING PATTERN. absent: Accessory Muscle Use, Respiratory Distress - Cardiovascular Exam Cardiovascular Exam: Bradycardia, REGULAR RHYTHM. absent: Tachycardia - GI/Abdominal Exam GI & Abdominal Exam: Soft, Tenderness (appropriate midline TTP). absent: D istended, Firm, Guarding, Rigid, Rebound Additional comments: incisions c/d/i OnQ catheters in place, ball empty - Extremities Exam Extremities Exam: Normal Inspection - Neurological Exam Neurological Exam: Alert, Awake, Oriented x3 - Psychiatric Exam Psychiatric exam: Normal Affect, Normal Mood - Skin Skin Exam: Dry, Intact, Normal Color, Warm Assessment and Plan - Assessment and Plan (Free Text) Assessment: 82 y/o F POD#2 s/p laparoscopic extended L hemicolectomy w/ primary anastomosis Plan: - replace electrolytes PRN - ADAT - monitor bowel function - replacement OnQ ordered - cont pain management - encourage OOB to chair/Amb/IS use - DVT PPx - PT/OT Pt discussed w/ Dr. Dane Woods PGY3
--- NOTE | 2018-10-31 09:00 | CP.PCM.PN ---
Subjective - Date & Time of Evaluation Date of Evaluation: 10/31/18 Time of Evaluation: 07:00 - Subjective Subjective: Awake, alert, lying in bed, feels okay, able to tolerate diet, abdominal surgical pain Reason for consultation and follow up: Post op follow up, status post laparoscopic hemicolectomy, history of hyperlipidemia Seen and examined by me and Objective - Vital Signs/Intake and Output Vital Signs (last 24 hours): Temp Pulse Resp BP Pulse Ox 98 F 75 20 156/77 H 96 10/31/18 08:28 10/31/18 08:28 10/31/18 08:28 10/31/18 08:28 10/31/18 08:28 Intake and Output: 10/31/18 10/31/18 06:59 18:59 Intake Total 1380 Output Total 1300 Balance 80 - Medications Medications: Current Medications Acetaminophen (Tylenol 325mg Tab) 650 mg PO Q4H PRN PRN Reason: Pain, Mild (1-3) Last Admin: 10/29/18 22:30 Dose: 650 mg Alprazolam (Xanax) 0.25 mg PO BID PRN; Protocol PRN Reason: Anxiety Last Admin: 10/28/18 22:30 Dose: 0.25 mg Atorvastatin Calcium (Lipitor) 40 mg PO DIN [facility] Last Admin: 10/30/18 17:57 Dose: 40 mg Benzocaine/Menthol (Cepacol Sore Throat) 1 eddy MT Q2H PRN PRN Reason: Sore Throat Last Admin: 10/31/18 05:16 Dose: 1 eddy Diphenhydramine HCl (Benadryl) 50 mg IVP HS PRN PRN Reason: Allergy symptoms Heparin Sodium (Porcine) (Heparin) 5,000 units SC Q8 [facility]; Protocol Last Admin: 10/31/18 05:17 Dose: 5,000 units Potassium Chloride 20 meq/ (Dextrose/Sodium Chloride) 1,010 mls @ 115 mls/hr IV .Q8H47M [facility] Last Admin: 10/31/18 05:18 Dose: 115 mls/hr Metoprolol Tartrate (Lopressor) 25 mg PO BID [facility] Last Admin: 10/30/18 17:57 Dose: 25 mg Ondansetron HCl (Zofran Inj) 4 mg IVP Q4H PRN PRN Reason: Nausea/Vomiting Last Admin: 10/29/18 03:46 Dose: 4 mg Oxycodone/Acetaminophen (Percocet 5/325 Mg Tab) 1 tab PO Q4H PRN PRN Reason: Pain, moderate (4-7) Stop: 11/02/18 17:27 Last Admin: 10/31/18 05:18 Dose: 1 tab Pantoprazole Sodium (Protonix Inj) 40 mg IVP DAILY [facility] Last Admin: 10/30/18 09:04 Dose: 40 mg Phenol/Menthol (Phenaseptic 1.4% Throat [place]) 1 ml MT Q1H PRN PRN Reason: Sore Throat Potassium Chloride (K-Dur 20 Meq Er Tab) 20 meq PO ONCE ONE Stop: 10/31/18 08:58 - Labs Labs: 10/31/18 05:30 10/31/18 05:30 PT 13.1 SECONDS (9.4-12.5) H 10/29/18 07:40 INR 1.16 10/29/18 07:40 APTT 34.6 Seconds (26.9-38.3) 10/29/18 07:40 - Constitutional Appears: Non-toxic, No Acute Distress - Head Exam Head Exam: NORMAL INSPECTION, NORMOCEPHALIC - Eye Exam Eye Exam: Normal appearance Pupil Exam: NORMAL ACCOMODATION - ENT Exam ENT Exam: Mucous Membranes Moist, Normal Exam - Cardiovascular Exam Cardiovascular Exam: REGULAR RHYTHM, +S1, +S2 - GI/Abdominal Exam GI & Abdominal Exam: Soft, Normal Bowel Sounds - Extremities Exam Extremities Exam: Full ROM, Normal Capillary Refill - Neurological Exam Neurological Exam: Alert, Awake, Oriented x3 - Psychiatric Exam Psychiatric exam: Normal Affect, Normal Mood - Skin Skin Exam: Dry, Normal Color, Warm Assessment and Plan - Assessment and Plan (Free Text) Assessment: An 82 year old female who came in to the [facility] due to abdominal pain and diarrhea. Consult was called to for risk stratification and cardiac clearance for abdominal surgery. History of hyperlipidemia and anxiety. Weight loss for the past few months. CT of abdomen showed annular neoplasm in the distal transverse colon/splenic flexure, mass on the lateral segment of the left hepatic lobe. Patient denies chest pain or shortness of breath. EKG-normal sinus rhythm, Chest X ray -normal. No evidence of myocardial ischemia or heart failure. Echo done and showed LVEF 55%, mild MR, moderate TR, moderate pulmonary hypertension. Status post laparoscopic extended left sided hemicolectomy with primary anastomosis and left liver lobe wedge biopsy POD #1. Complaining of surgical pain. PRN medicine given. Cardiac status stable. Plan: Complaining of surgical site pain PRN pain medicine given by RN Status post left hemicolectomy with liver wedge biopsy POD #2 Cardiac status stable Heart rate and blood pressure stable On Lopressor 25 mg BID,Lipitor 40 mg daily, Continue antibiotics as ordered Continue current management Replenish potassium today Tolerating diet, advanced diet per surgery Pain management Increase activity, OOB to chair as tolerated Will discontinue telemetry Will follow up Plan and treatment discussed with
[2018-10-31] MEDS ORDERED: 0.125% Bupivacaine in 0.9% NS 400mL On Q pump IJ SCH (10:00)
--- NOTE | 2018-10-31 11:36 | PN ---
SUBJECTIVE: The patient was seen and examined at bedside on the general medical [facility]. No acute events overnight. She remains afebrile, hemodynamically stable and is doing well s/p left hemicolectomy with primary anastomosis. This morning she does complain of mild abdominal pain but overall feels okay. OBJECTIVE: VITAL SIGNS: Temperature 98, pulse 60, blood pressure 150/82, respiratory rate 20 and oxygen saturation 97% on room air. GENERAL: No apparent distress. HEENT: PERRL, EOMI. No sclerae icterus. Mild conjunctival pallor is noted. NECK: No JVD. No bruits. LUNGS: Clear to auscultation. CARDIOVASCULAR: Regular rate and rhythm. Normal S1 and S2. No murmurs. ABDOMEN: Normoactive bowel sounds, soft and nondistended. Tender to palpation at surgical sites which appear c/d/i. EXTREMITIES: No edema. NEUROLOGIC: Awake, alert and oriented x 3. No focal motor deficits. LABORATORY DATA: WBC 10.4 with 79% neutrophils, Hb 9.5, Hct 31, platelets 290 and MCV 71. Sodium 135, potassium 3.5, chloride 103, bicarb of 28, BUN 7, creatinine 0.5, glucose 117. AST 41, ALT 82, T-bili 0.3 and Alk phos 93. 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 PLAN: 1. 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 Continue with postoperative care as per Dr. Moncada and the surgical team. Continue with care as per Dr. Barlow. 2. Hepatic lesions, likely representing metastatic colorectal cancer. The patient is s/p wedge biopsy. We will await pathology reports. Continue with care as above. 3. Iron deficiency anemia, likely secondary to metastatic colorectal cancer. Continue monitor CBC daily and transfuse as needed. 4. Anxiety disorder. Continue Xanax 0.5 mg p.o. twice a day. 5. Hyperlipidemia. Continue Lipitor 40 mg p.o. daily. 6. Prophylaxis. Continue Protonix for GI prophylaxis and Heparin for DVT prophylaxis. CODE STATUS: Full code. Charles He MD VON
--- NOTE | 2018-11-01 00:31 | PN ---
DATE: 10/31/2018 This patient was seen and evaluated earlier. SUBJECTIVE: The patient is comfortable. Not in acute distress. Family was at bedside. PHYSICAL EXAMINATION: VITAL SIGNS: Temperature is 98, pulse 68, and blood pressure 138/75 and respirations 18. HEENT: .Atraumatic and anicteric. NECK: Supple. HEART: S1, S2 heard. LUNGS: Bilateral air entry present. ABDOMEN: Soft. Surgical incision scar noticed. NEUROLOGIC Alert and oriented. Moves all the extremities. LABORATORY DATA: Hemoglobin 9.5, hematocrit 31.1, WBC 10.4, platelets 90. Sodium 135, potassium 3.5, BUN 7, creatinine 0.5. IMPRESSION: This 82-year-old patient with metastatic colon cancer, hepatic lesions, lap assisted left hemicolectomy with primary anastomosis postoperative day 2. The patient does have a hepatic metastasis, elevated LFTs which shows now downwards trend essentially the significant improvement in the LFTs. RECOMMENDATIONS: Followup of the pathology postop as per the surgery. Thank you very much for allowing me to participate in the care of the patient. Norma Vasquez MD
--- NOTE | 2018-11-01 07:21 | CP.PCM.PN ---
Subjective - Date & Time of Evaluation Date of Evaluation: 11/01/18 Time of Evaluation: 06:50 - Subjective Subjective: Easily awaken, alert, lying in bed, feels okay, Reason for consultation and follow up: Post op follow up, status post laparoscopic hemicolectomy, history of hyperlipidemia Seen and examined by me and Objective - Vital Signs/Intake and Output Vital Signs (last 24 hours): Temp Pulse Resp BP Pulse Ox 98 F 68 18 138/75 95 10/31/18 16:46 10/31/18 17:33 10/31/18 16:46 10/31/18 17:33 10/31/18 16:46 Intake and Output: 11/01/18 11/01/18 06:59 18:59 Intake Total 1560 Output Total 1050 Balance 510 - Medications Medications: Current Medications Acetaminophen (Tylenol 325mg Tab) 650 mg PO Q4H PRN PRN Reason: Pain, Mild (1-3) Last Admin: 10/29/18 22:30 Dose: 650 mg Alprazolam (Xanax) 0.25 mg PO BID PRN; Protocol PRN Reason: Anxiety Last Admin: 10/28/18 22:30 Dose: 0.25 mg Amlodipine Besylate (Norvasc) 5 mg PO DAILY [facility] Last Admin: 10/31/18 09:43 Dose: 5 mg Atorvastatin Calcium (Lipitor) 40 mg PO DIN [facility] Last Admin: 10/31/18 17:33 Dose: 40 mg Benzocaine/Menthol (Cepacol Sore Throat) 1 eddy MT Q2H PRN PRN Reason: Sore Throat Last Admin: 10/31/18 05:16 Dose: 1 eddy Diphenhydramine HCl (Benadryl) 50 mg IVP HS PRN PRN Reason: Allergy symptoms Last Admin: 10/31/18 22:04 Dose: 50 mg Heparin Sodium (Porcine) (Heparin) 5,000 units SC Q8 [facility]; Protocol Last Admin: 11/01/18 05:34 Dose: 5,000 units Hydralazine HCl (Apresoline) 10 mg IVP Q6 PRN PRN Reason: SBP above 160,diastolic BP 100 Last Admin: 10/31/18 15:19 Dose: 10 mg Metoprolol Tartrate (Lopressor) 25 mg PO BID [facility] Last Admin: 10/31/18 17:33 Dose: 25 mg Ondansetron HCl (Zofran Inj) 4 mg IVP Q4H PRN PRN Reason: Nausea/Vomiting Last Admin: 10/31/18 17:38 Dose: 4 mg Oxycodone/Acetaminophen (Percocet 5/325 Mg Tab) 1 tab PO Q4H PRN PRN Reason: Pain, moderate (4-7) Stop: 11/02/18 17:27 Last Admin: 10/31/18 05:18 Dose: 1 tab Pantoprazole Sodium (Protonix Inj) 40 mg IVP DAILY [facility] Last Admin: 10/31/18 09:42 Dose: 40 mg Phenol/Menthol (Phenaseptic 1.4% Throat [place]) 1 ml MT Q1H PRN PRN Reason: Sore Throat - Labs Labs: 10/31/18 05:30 10/31/18 05:30 PT 13.1 SECONDS (9.4-12.5) H 10/29/18 07:40 INR 1.16 10/29/18 07:40 APTT 34.6 Seconds (26.9-38.3) 10/29/18 07:40 - Constitutional Appears: Non-toxic, No Acute Distress - Head Exam Head Exam: NORMAL INSPECTION, NORMOCEPHALIC - Eye Exam Eye Exam: Normal appearance Pupil Exam: NORMAL ACCOMODATION - ENT Exam ENT Exam: Mucous Membranes Moist, Normal Exam - Respiratory Exam Respiratory Exam: Decreased Breath Sounds, Clear to Ausculation Bilateral, NORMAL BREATHING PATTERN - Cardiovascular Exam Cardiovascular Exam: +S1, +S2 - GI/Abdominal Exam GI & Abdominal Exam: Soft, Normal Bowel Sounds - Extremities Exam Extremities Exam: Full ROM, Normal Capillary Refill - Neurological Exam Neurological Exam: Alert, Awake, Oriented x3 - Psychiatric Exam Psychiatric exam: Normal Affect, Normal Mood - Skin Skin Exam: Dry, Normal Color, Warm Assessment and Plan - Assessment and Plan (Free Text) Assessment: An 82 year old female who came in to the Er due to abdominal pain and diarrhea. Consult was called to for risk stratification and cardiac clearance for abdominal surgery. History of hyperlipidemia and anxiety. Weight loss for the past few months. CT of abdomen showed annular neoplasm in the distal transverse colon/splenic flexure, mass on the lateral segment of the left hepatic lobe. Patient denies chest pain or shortness of breath. EKG-normal sinus rhythm, Chest X ray -normal. No evidence of myocardial ischemia or heart failure. Echo done and showed LVEF 55%, mild MR, moderate TR, moderate pulmonary hypertension. Status post laparoscopic extended left sided hemicolectomy with primary anastomosis and left liver lobe wedge biopsy. Cardiac status stable.Physical therapy. Awaiting pathology result. Plan: Status post left hemicolectomy with liver wedge biopsy POD #3 Awaiting pathology result Cardiac status stable Heart rate and blood pressure stable On Lopressor 25 mg BID,Lipitor 40 mg daily, Continue antibiotics as ordered Continue current management Tolerating diet, advanced diet per surgery Pain management Out of bed to chair as tolerated Incentive spirometer while awake Will follow up Plan and treatment discussed with
--- NOTE | 2018-11-01 08:38 | CP.PCM.PN ---
Subjective - Date & Time of Evaluation Date of Evaluation: 11/01/18 Time of Evaluation: 08:35 - Subjective Subjective: Surgery Progress Note for Dr. Vela 82F seen and evaluated at bedside this morning. No acute events overnight. Pain is controlled. Patient ambulated with PT and family yesterday. Having liquid BM and passing flatus. No difficulty voiding. Patients BP was slightly elevated overnight and was given an IV medication which made her feel nauseated however symptoms resolved. Patient tolerated diet, but did not have dinner. Denies f/c, SOB, CP, or urinary symptoms. Objective - Vital Signs/Intake and Output Vital Signs (last 24 hours): Temp Pulse Resp BP Pulse Ox 98.2 F 67 20 160/79 H 96 11/01/18 08:26 11/01/18 08:26 11/01/18 08:26 11/01/18 08:26 11/01/18 08:26 Intake and Output: 11/01/18 11/01/18 06:59 18:59 Intake Total 1560 Output Total 1050 Balance 510 - Medications Medications: Current Medications Acetaminophen (Tylenol 325mg Tab) 650 mg PO Q4H PRN PRN Reason: Pain, Mild (1-3) Last Admin: 10/29/18 22:30 Dose: 650 mg Alprazolam (Xanax) 0.25 mg PO BID PRN; Protocol PRN Reason: Anxiety Last Admin: 10/28/18 22:30 Dose: 0.25 mg Amlodipine Besylate (Norvasc) 5 mg PO DAILY [facility] Last Admin: 10/31/18 09:43 Dose: 5 mg Atorvastatin Calcium (Lipitor) 40 mg PO DIN [facility] Last Admin: 10/31/18 17:33 Dose: 40 mg Benzocaine/Menthol (Cepacol Sore Throat) 1 eddy MT Q2H PRN PRN Reason: Sore Throat Last Admin: 10/31/18 05:16 Dose: 1 eddy Diphenhydramine HCl (Benadryl) 50 mg IVP HS PRN PRN Reason: Allergy symptoms Last Admin: 10/31/18 22:04 Dose: 50 mg Heparin Sodium (Porcine) (Heparin) 5,000 units SC Q8 [facility]; Protocol Last Admin: 11/01/18 05:34 Dose: 5,000 units Hydralazine HCl (Apresoline) 10 mg IVP Q6 PRN PRN Reason: SBP above 160,diastolic BP 100 Last Admin: 10/31/18 15:19 Dose: 10 mg Metoprolol Tartrate (Lopressor) 25 mg PO BID [facility] Last Admin: 10/31/18 17:33 Dose: 25 mg Ondansetron HCl (Zofran Inj) 4 mg IVP Q4H PRN PRN Reason: Nausea/Vomiting Last Admin: 10/31/18 17:38 Dose: 4 mg Oxycodone/Acetaminophen (Percocet 5/325 Mg Tab) 1 tab PO Q4H PRN PRN Reason: Pain, moderate (4-7) Stop: 11/02/18 17:27 Last Admin: 10/31/18 05:18 Dose: 1 tab Pantoprazole Sodium (Protonix Inj) 40 mg IVP DAILY [facility] Last Admin: 10/31/18 09:42 Dose: 40 mg Phenol/Menthol (Phenaseptic 1.4% Throat [place]) 1 ml MT Q1H PRN PRN Reason: Sore Throat - Labs Labs: 10/31/18 05:30 10/31/18 05:30 PT 13.1 SECONDS (9.4-12.5) H 10/29/18 07:40 INR 1.16 10/29/18 07:40 APTT 34.6 Seconds (26.9-38.3) 10/29/18 07:40 - Constitutional Appears: Well, Non-toxic, No Acute Distress - Head Exam Head Exam: ATRAUMATIC, NORMAL INSPECTION, NORMOCEPHALIC - Eye Exam Eye Exam: EOMI - ENT Exam ENT Exam: Mucous Membranes Dry - Respiratory Exam Respiratory Exam: NORMAL BREATHING PATTERN. absent: Wheezes, Respiratory Distress - Cardiovascular Exam Cardiovascular Exam: REGULAR RHYTHM, +S1, +S2. absent: Murmur - GI/Abdominal Exam GI & Abdominal Exam: Soft, Tenderness, Normal Bowel Sounds. absent: Distended, Guarding, Rebound Additional comments: midline incision c/d/i onQ in place - Neurological Exam Neurological Exam: Alert, Awake, Oriented x3 - Psychiatric Exam Psychiatric exam: Normal Affect, Normal Mood - Skin Skin Exam: Dry, Intact, Normal Color, Warm Assessment and Plan - Assessment and Plan (Free Text) Assessment: 82F s/p lap extended right hemicolectomy with primary anastamosis POD3 Plan: HHD onQ for pain Encourage IS and ambulation, OOBTC Continue to monitor diet tolerance GI/DVT PPX Aggressive PT PT recommends discharge home when cleared medically D/w Dr. Dane Sánchez PGY1
[2018-11-01 09:43] LABS: HEMOGLOBIN 10.2 g/dL (12.0-16.0); MEAN CELL VOLUME 71.3 fl (80.0-105.0); MEAN CORPUSCULAR HEMOGLOBIN 22.2 pg (25.0-35.0); MEAN CORPUSCULAR HGB CONC 31.1 g/dl (31.0-37.0); MEAN PLATELET VOLUME 9.8 fl (7.0-11.0); RBC 4.6 10^6/uL (3.5-6.1); RED CELL DISTRIBUTION WIDTH 28.1 % (11.5-14.5); WHITE BLOOD COUNT 9.3 10^3/uL (4.5-11.0)
[2018-11-01 09:51] LABS: BLOOD UREA NITROGEN 7 mg/dL (7-21); CALCIUM 9.2 mg/dL (8.4-10.5); GFR NON-AFRICAN AMERICAN > 60
--- NOTE | 2018-11-01 18:38 | CP.PCM.PN ---
Subjective - Date & Time of Evaluation Date of Evaluation: 11/01/18 Time of Evaluation: 17:00 - Subjective Subjective: No acute issues. Continues to recover POD s/p hemicolectomy. Pain at surgical cite controlled with prn medications ROS: 12 ROS otherwise negative Objective - Vital Signs/Intake and Output Vital Signs (last 24 hours): Temp Pulse Resp BP Pulse Ox 97.3 F L 63 18 165/78 H 96 11/01/18 15:58 11/01/18 17:37 11/01/18 15:58 11/01/18 17:37 11/01/18 15:58 Intake and Output: 11/01/18 11/01/18 06:59 18:59 Intake Total 1560 Output Total 1050 Balance 510 - Medications Medications: Current Medications Acetaminophen (Tylenol 325mg Tab) 650 mg PO Q4H PRN PRN Reason: Pain, Mild (1-3) Last Admin: 10/29/18 22:30 Dose: 650 mg Alprazolam (Xanax) 0.25 mg PO BID PRN; Protocol PRN Reason: Anxiety Last Admin: 10/28/18 22:30 Dose: 0.25 mg Amlodipine Besylate (Norvasc) 5 mg PO DAILY [facility] Last Admin: 11/01/18 09:38 Dose: 5 mg Atorvastatin Calcium (Lipitor) 40 mg PO DIN [facility] Last Admin: 11/01/18 17:37 Dose: 40 mg Benzocaine/Menthol (Cepacol Sore Throat) 1 eddy MT Q2H PRN PRN Reason: Sore Throat Last Admin: 10/31/18 05:16 Dose: 1 eddy Diphenhydramine HCl (Benadryl) 50 mg IVP HS PRN PRN Reason: Allergy symptoms Last Admin: 10/31/18 22:04 Dose: 50 mg Heparin Sodium (Porcine) (Heparin) 5,000 units SC Q8 [facility]; Protocol Last Admin: 11/01/18 14:05 Dose: Not Given Hydralazine HCl (Apresoline) 10 mg IVP Q6 PRN PRN Reason: SBP above 160,diastolic BP 100 Last Admin: 10/31/18 15:19 Dose: 10 mg Metoprolol Tartrate (Lopressor) 25 mg PO BID [facility] Last Admin: 11/01/18 17:37 Dose: 25 mg Ondansetron HCl (Zofran Inj) 4 mg IVP Q4H PRN PRN Reason: Nausea/Vomiting Last Admin: 10/31/18 17:38 Dose: 4 mg Oxycodone/Acetaminophen (Percocet 5/325 Mg Tab) 1 tab PO Q4H PRN PRN Reason: Pain, moderate (4-7) Stop: 11/02/18 17:27 Last Admin: 10/31/18 05:18 Dose: 1 tab Pantoprazole Sodium (Protonix Inj) 40 mg IVP DAILY [facility] Last Admin: 11/01/18 09:39 Dose: 40 mg Phenol/Menthol (Phenaseptic 1.4% Throat [place]) 1 ml MT Q1H PRN PRN Reason: Sore Throat Zolpidem Tartrate (Ambien) 10 mg PO HS PRN; Protocol PRN Reason: Insomnia Stop: 11/07/18 23:59 - Labs Labs: 11/01/18 09:30 11/01/18 09:30 PT 13.1 SECONDS (9.4-12.5) H 10/29/18 07:40 INR 1.16 10/29/18 07:40 APTT 34.6 Seconds (26.9-38.3) 10/29/18 07:40 - Constitutional Appears: Well - Respiratory Exam Respiratory Exam: Clear to Ausculation Bilateral, NORMAL BREATHING PATTERN - Cardiovascular Exam Cardiovascular Exam: REGULAR RHYTHM, +S1, +S2. absent: Murmur - GI/Abdominal Exam GI & Abdominal Exam: Soft, Normal Bowel Sounds. absent: Tenderness Additional comments: Surgical incision appears c/d/i Assessment and Plan - Assessment and Plan (Free Text) Assessment: Ms. Chen keyona 82 y/o woman with colon ca s/p hemicolectomy POD2 with presumptive liver mets s/p biopsy. Will await pathology results. Would likely require chemotherapy depending on ability for surgical resection of presumptive liver mets. Daughter considering shifting mother closer to rest of family members in [place] or [place] potentially after discharge. Patient still deliberating
[2018-11-02 07:10] LABS: BASO # 0.03 K/mm3 (0.0-2.0); BASO % 0.4 % (0.0-3.0); EOS # 0.2 (0.0-0.7); EOS % 2.5 % (1.5-5.0); LYMPH % 11.7 % (22.0-35.0); MEAN CELL VOLUME 70.7 fl (80.0-105.0); MEAN CORPUSCULAR HEMOGLOBIN 21.7 pg (25.0-35.0); MEAN CORPUSCULAR HGB CONC 30.8 g/dl (31.0-37.0); MEAN PLATELET VOLUME 9.9 fl (7.0-11.0); MONO # 0.7 (0.1-0.6); MONO % 8.7 % (1.0-6.0); RBC 4.6 10^6/uL (3.5-6.1); RED CELL DISTRIBUTION WIDTH 27.8 % (11.5-14.5); WHITE BLOOD COUNT 8.5 10^3/uL (4.5-11.0)
[2018-11-02 07:22] LABS: ALB/GLOB RATIO 1.1 (1.1-1.8); ALBUMIN 3.2 g/dL (3.0-4.8); ALT/SGPT 125 U/L (7-56); AST/SGOT 122 U/L (14-36); BLOOD UREA NITROGEN 11 mg/dL (7-21); CALCIUM 8.5 mg/dL (8.4-10.5); GFR NON-AFRICAN AMERICAN > 60
--- NOTE | 2018-11-02 07:46 | CP.PCM.PN ---
Subjective - Date & Time of Evaluation Date of Evaluation: 11/02/18 Time of Evaluation: 06:20 - Subjective Subjective: Easily awaken, alert, sitting side of bed, feels better Reason for consultation and follow up: Post op follow up, status post laparosc opic hemicolectomy, history of hyperlipidemia Seen and examined by me and Dr. Sanders Objective - Vital Signs/Intake and Output Vital Signs (last 24 hours): Temp Pulse Resp BP Pulse Ox 97.3 F L 63 18 165/78 H 96 11/01/18 15:58 11/01/18 17:37 11/01/18 15:58 11/01/18 17:37 11/01/18 15:58 Intake and Output: 11/02/18 11/02/18 06:59 18:59 Intake Total 1320 Output Total 1450 Balance -130 - Medications Medications: Current Medications Acetaminophen (Tylenol 325mg Tab) 650 mg PO Q4H PRN PRN Reason: Pain, Mild (1-3) Last Admin: 10/29/18 22:30 Dose: 650 mg Alprazolam (Xanax) 0.25 mg PO BID PRN; Protocol PRN Reason: Anxiety Last Admin: 10/28/18 22:30 Dose: 0.25 mg Amlodipine Besylate (Norvasc) 5 mg PO DAILY [facility] Last Admin: 11/01/18 09:38 Dose: 5 mg Atorvastatin Calcium (Lipitor) 40 mg PO DIN [facility] Last Admin: 11/01/18 17:37 Dose: 40 mg Benzocaine/Menthol (Cepacol Sore Throat) 1 eddy MT Q2H PRN PRN Reason: Sore Throat Last Admin: 10/31/18 05:16 Dose: 1 eddy Diphenhydramine HCl (Benadryl) 50 mg IVP HS PRN PRN Reason: Allergy symptoms Last Admin: 10/31/18 22:04 Dose: 50 mg Heparin Sodium (Porcine) (Heparin) 5,000 units SC Q8 [facility]; Protocol Last Admin: 11/02/18 05:01 Dose: Not Given Hydralazine HCl (Apresoline) 10 mg IVP Q6 PRN PRN Reason: SBP above 160,diastolic BP 100 Last Admin: 10/31/18 15:19 Dose: 10 mg Metoprolol Tartrate (Lopressor) 25 mg PO BID [facility] Last Admin: 11/01/18 17:37 Dose: 25 mg Ondansetron HCl (Zofran Inj) 4 mg IVP Q4H PRN PRN Reason: Nausea/Vomiting Last Admin: 10/31/18 17:38 Dose: 4 mg Oxycodone/Acetaminophen (Percocet 5/325 Mg Tab) 1 tab PO Q4H PRN PRN Reason: Pain, moderate (4-7) Stop: 11/02/18 17:27 Last Admin: 10/31/18 05:18 Dose: 1 tab Pantoprazole Sodium (Protonix Inj) 40 mg IVP DAILY [facility] Last Admin: 11/01/18 09:39 Dose: 40 mg Phenol/Menthol (Phenaseptic 1.4% Throat [place]) 1 ml MT Q1H PRN PRN Reason: Sore Throat Zolpidem Tartrate (Ambien) 10 mg PO HS PRN; Protocol PRN Reason: Insomnia Stop: 11/07/18 23:59 Last Admin: 11/01/18 21:02 Dose: 10 mg - Labs Labs: 11/02/18 06:20 11/02/18 06:20 PT 13.1 SECONDS (9.4-12.5) H 10/29/18 07:40 INR 1.16 10/29/18 07:40 APTT 34.6 Seconds (26.9-38.3) 10/29/18 07:40 - Constitutional Appears: Non-toxic, No Acute Distress - Head Exam Head Exam: NORMAL INSPECTION, NORMOCEPHALIC - Eye Exam Eye Exam: Normal appearance Pupil Exam: NORMAL ACCOMODATION - ENT Exam ENT Exam: Mucous Membranes Moist, Normal Exam - Respiratory Exam Respiratory Exam: Decreased Breath Sounds, Clear to Ausculation Bilateral, NORMAL BREATHING PATTERN - Cardiovascular Exam Cardiovascular Exam: +S1, +S2 - GI/Abdominal Exam GI & Abdominal Exam: Soft, Normal Bowel Sounds - Extremities Exam Extremities Exam: Full ROM, Normal Capillary Refill - Neurological Exam Neurological Exam: Alert, Awake, Oriented x3 - Psychiatric Exam Psychiatric exam: Normal Affect, Normal Mood - Skin Skin Exam: Dry, Normal Color, Warm Assessment and Plan - Assessment and Plan (Free Text) Assessment: An 82 year old female who came in to the [facility] due to abdominal pain and diarrhea. Consult was called to for risk stratification and cardiac clearance for abdominal surgery. History of hyperlipidemia and anxiety. Weight loss for the past few months. CT of abdomen showed annular neoplasm in the distal transverse colon/splenic flexure, mass on the lateral segment of the left hepatic lobe. Patient denies chest pain or shortness of breath. EKG-normal sinus rhythm, Chest X ray -normal. No evidence of myocardial ischemia or heart failure. Echo done and showed LVEF 55%, mild MR, moderate TR, moderate pulmonary hypertension. Status post laparoscopic extended left sided hemicolectomy with primary anastomosis and left liver lobe wedge biopsy. Awaiting pathology result. Cardiac status stable. Physical therapy. Plan: Feels good, no distress Cardiac status stable Heart rate and blood pressure stable Status post left hemicolectomy with liver wedge biopsy POD #4 Awaiting pathology result On Lopressor 25 mg BID,Lipitor 40 mg daily, Continue antibiotics as ordered Continue current management Replenish potassium Will follow up Plan and treatment discussed with Dr. Sanders
[2018-11-02] MEDS ORDERED: Potassium Chloride 20 mEq ER Tab PO STA (07:51)
--- NOTE | 2018-11-02 08:49 | PN ---
DATE: 11/01/2018 SUBJECTIVE: The patient is in room 371 bed 2. She is lying in bed, has no complaints. There were no acute events overnight. Her only complaint is inability to sleep. PHYSICAL EXAMINATION VITAL SIGNS: Temperature of 98.2, blood pressure 160/79, respiratory rate of 20 with an O2 saturation of 96% on room air. HEENT: PERRLA, EOMI. No icterus is present. NECK: Supple with full range of motion. No bruits or adenopathy appreciated. LUNGS: Clear to auscultation and percussion bilaterally. HEART: With regular rate and rhythm. No murmurs. ABDOMEN: Soft and is nontender. Bowel sounds are normoactive. EXTREMITIES: Show no deformities and no edema. NEUROLOGICAL: There are no focal deficits. IMPRESSION: 1. Status post partial colectomy secondary to old mass, pathology report pending. 2. Hypertension. 3. Hyperlipidemia. Hilario He MD
--- NOTE | 2018-11-02 09:30 | PN ---
SUBJECTIVE: The patient was seen and examined at bedside on the general medical man[facility], no acute events overnight. She remains afebrile, hemodynamically stable and is doing well s/p left hemicolectomy. She is tolerating p.o. intake and overall offers no complaints. She is presently discussing with her family whether or not to move to [place] for continued medical care. OBJECTIVE: VITAL SIGNS: Temperature 98.5, pulse 69, blood pressure 149/73, respiratory rate 20 and oxygen saturation 94% on room air. GENERAL: No apparent distress. HEENT: PERRL, EOMI. No scleral icterus. Mild conjunctival pallor is noted. NECK: No JVD. LUNGS: Clear to auscultation. CARDIOVASCULAR: Regular rate and rhythm. Normal S1 and S2. No murmurs. ABDOMEN: Normoactive bowel sounds, soft, nontender and nondistended. Surgical site appears clean, dry and intact. EXTREMITIES: No edema. NEUROLOGIC: Awake, alert and oriented x 3. No focal motor deficits. LABORATORY DATA: WBC 8.5, hemoglobin 10, hematocrit 32, platelets 325 and MCV 71. Chemistry reviewed. 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 PLAN: 1. 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 Continue with postoperative care as per Dr. Vela and the surgical team. Continue with care as per Dr. Barlow. 2. Hepatic lesions, likely representing metastatic colorectal cancer. We will await biopsy results. Continue with care as above. 3. Iron-deficiency anemia, likely secondary to metastatic colorectal cancer. Continue to monitor CBC daily and transfuse as needed. 4. Anxiety disorder. Continue Xanax 0.5 mg p.o. b.i.d. 5. Hyperlipidemia. Continue Lipitor 40 mg p.o. daily. 6. Prophylaxis. Continue Protonix for GI prophylaxis and Heparin for DVT prophylaxis. CODE STATUS: Full code. Charles He MD VON
[2018-11-02] MEDS ORDERED: Potassium Chloride 20 mEq ER Tab PO ONE (10:00)
--- NOTE | 2018-11-02 13:55 | CP.PCM.PN ---
Subjective - Date & Time of Evaluation Date of Evaluation: 11/02/18 Time of Evaluation: 06:00 - Subjective Subjective: Patient seen and evaluated bedside. No acute issues overnight. Patient says she is feeling well, denies any abdominal complaint, nausea, vomiting. Had bowel movement. Objective - Vital Signs/Intake and Output Vital Signs (last 24 hours): Temp Pulse Resp BP Pulse Ox 98.5 F 69 20 149/73 94 L 11/02/18 07:47 11/02/18 10:34 11/02/18 07:47 11/02/18 10:34 11/02/18 07:47 Intake and Output: 11/02/18 11/02/18 06:59 18:59 Intake Total 1320 Output Total 1450 Balance -130 - Medications Medications: Current Medications Acetaminophen (Tylenol 325mg Tab) 650 mg PO Q4H PRN PRN Reason: Pain, Mild (1-3) Last Admin: 10/29/18 22:30 Dose: 650 mg Alprazolam (Xanax) 0.25 mg PO BID PRN; Protocol PRN Reason: Anxiety Last Admin: 10/28/18 22:30 Dose: 0.25 mg Amlodipine Besylate (Norvasc) 5 mg PO DAILY [facility] Last Admin: 11/02/18 10:33 Dose: 5 mg Atorvastatin Calcium (Lipitor) 40 mg PO DIN [facility] Last Admin: 11/01/18 17:37 Dose: 40 mg Benzocaine/Menthol (Cepacol Sore Throat) 1 eddy MT Q2H PRN PRN Reason: Sore Throat Last Admin: 10/31/18 05:16 Dose: 1 eddy Diphenhydramine HCl (Benadryl) 50 mg IVP HS PRN PRN Reason: Allergy symptoms Last Admin: 10/31/18 22:04 Dose: 50 mg Heparin Sodium (Porcine) (Heparin) 5,000 units SC Q8 [facility]; Protocol Last Admin: 11/02/18 05:01 Dose: Not Given Hydralazine HCl (Apresoline) 10 mg IVP Q6 PRN PRN Reason: SBP above 160,diastolic BP 100 Last Admin: 10/31/18 15:19 Dose: 10 mg Metoprolol Tartrate (Lopressor) 25 mg PO BID [facility] Last Admin: 11/02/18 10:34 Dose: 25 mg Ondansetron HCl (Zofran Inj) 4 mg IVP Q4H PRN PRN Reason: Nausea/Vomiting Last Admin: 10/31/18 17:38 Dose: 4 mg Oxycodone/Acetaminophen (Percocet 5/325 Mg Tab) 1 tab PO Q4H PRN PRN Reason: Pain, moderate (4-7) Stop: 11/02/18 17:27 Last Admin: 10/31/18 05:18 Dose: 1 tab Pantoprazole Sodium (Protonix Ec Tab) 40 mg PO ACB [facility] Phenol/Menthol (Phenaseptic 1.4% Throat [place]) 1 ml MT Q1H PRN PRN Reason: Sore Throat Zolpidem Tartrate (Ambien) 10 mg PO HS PRN; Protocol PRN Reason: Insomnia Stop: 11/07/18 23:59 Last Admin: 11/01/18 21:02 Dose: 10 mg - Labs Labs: 11/02/18 06:20 11/02/18 06:20 PT 13.1 SECONDS (9.4-12.5) H 10/29/18 07:40 INR 1.16 10/29/18 07:40 APTT 34.6 Seconds (26.9-38.3) 10/29/18 07:40 - Constitutional Appears: Non-toxic, No Acute Distress - Respiratory Exam Respiratory Exam: NORMAL BREATHING PATTERN - GI/Abdominal Exam GI & Abdominal Exam: Soft, Rebound. absent: Tenderness Assessment and Plan - Assessment and Plan (Free Text) Plan: Ms. Chen is a 82 y/o woman with colon ca s/p hemicolectomy POD4 with presumptive liver mets s/p biopsy. -currently awaiting pathology results. -likely require chemotherapy depending on ability for surgical resection of presumptive liver mets. D -daughter considering shifting mother closer to rest of family members in [place] or [place] potentially after discharge. Patient still deliberating whether or not to move closer to family or stay in [place] as she is alone
--- NOTE | 2018-11-02 14:16 | CP.PCM.PN ---
Subjective - Date & Time of Evaluation Date of Evaluation: 11/02/18 Time of Evaluation: 08:00 - Subjective Subjective: General surgery progress note for Dr. Vela-Aurora Hu, PGY-2 Pt seen/evaluated at bedside with surgical team Pt reports abdominal pain well controlled, tolerating diet. Having bowel function- BM & flatus. Denies N & V. Objective - Vital Signs/Intake and Output Vital Signs (last 24 hours): Temp Pulse Resp BP Pulse Ox 98.5 F 69 20 149/73 94 L 11/02/18 07:47 11/02/18 10:34 11/02/18 07:47 11/02/18 10:34 11/02/18 07:47 Intake and Output: 11/02/18 11/02/18 06:59 18:59 Intake Total 1320 Output Total 1450 Balance -130 - Medications Medications: Current Medications Acetaminophen (Tylenol 325mg Tab) 650 mg PO Q4H PRN PRN Reason: Pain, Mild (1-3) Last Admin: 10/29/18 22:30 Dose: 650 mg Alprazolam (Xanax) 0.25 mg PO BID PRN; Protocol PRN Reason: Anxiety Last Admin: 10/28/18 22:30 Dose: 0.25 mg Amlodipine Besylate (Norvasc) 5 mg PO DAILY [facility] Last Admin: 11/02/18 10:33 Dose: 5 mg Atorvastatin Calcium (Lipitor) 40 mg PO DIN [facility] Last Admin: 11/01/18 17:37 Dose: 40 mg Benzocaine/Menthol (Cepacol Sore Throat) 1 eddy MT Q2H PRN PRN Reason: Sore Throat Last Admin: 10/31/18 05:16 Dose: 1 eddy Diphenhydramine HCl (Benadryl) 50 mg IVP HS PRN PRN Reason: Allergy symptoms Last Admin: 10/31/18 22:04 Dose: 50 mg Heparin Sodium (Porcine) (Heparin) 5,000 units SC Q8 [facility]; Protocol Last Admin: 11/02/18 14:05 Dose: Not Given Hydralazine HCl (Apresoline) 10 mg IVP Q6 PRN PRN Reason: SBP above 160,diastolic BP 100 Last Admin: 10/31/18 15:19 Dose: 10 mg Metoprolol Tartrate (Lopressor) 25 mg PO BID [facility] Last Admin: 11/02/18 10:34 Dose: 25 mg Ondansetron HCl (Zofran Inj) 4 mg IVP Q4H PRN PRN Reason: Nausea/Vomiting Last Admin: 10/31/18 17:38 Dose: 4 mg Oxycodone/Acetaminophen (Percocet 5/325 Mg Tab) 1 tab PO Q4H PRN PRN Reason: Pain, moderate (4-7) Stop: 11/02/18 17:27 Last Admin: 10/31/18 05:18 Dose: 1 tab Pantoprazole Sodium (Protonix Ec Tab) 40 mg PO ACB [facility] Phenol/Menthol (Phenaseptic 1.4% Throat [place]) 1 ml MT Q1H PRN PRN Reason: Sore Throat Zolpidem Tartrate (Ambien) 10 mg PO HS PRN; Protocol PRN Reason: Insomnia Stop: 11/07/18 23:59 Last Admin: 11/01/18 21:02 Dose: 10 mg - Labs Labs: 11/02/18 06:20 11/02/18 06:20 PT 13.1 SECONDS (9.4-12.5) H 10/29/18 07:40 INR 1.16 10/29/18 07:40 APTT 34.6 Seconds (26.9-38.3) 10/29/18 07:40 - Constitutional Appears: Non-toxic, No Acute Distress - Head Exam Head Exam: ATRAUMATIC, NORMAL INSPECTION, NORMOCEPHALIC - Eye Exam Eye Exam: EOMI, Normal appearance - ENT Exam ENT Exam: Mucous Membranes Moist, Normal Exam - Neck Exam Neck Exam: Full ROM - Respiratory Exam Respiratory Exam: NORMAL BREATHING PATTERN - Cardiovascular Exam Cardiovascular Exam: REGULAR RHYTHM, +S1, +S2 - GI/Abdominal Exam GI & Abdominal Exam: Soft. absent: Distended, Firm, Guarding, Tenderness Additional comments: Midline incision with ever in place- no erythema. Surgical glue in place over laparoscopic and midline incision sites - Extremities Exam Extremities Exam: Normal Inspection - Neurological Exam Neurological Exam: Alert, Awake, CN II-XII Intact, Oriented x3 - Psychiatric Exam Psychiatric exam: Normal Affect, Normal Mood - Skin Skin Exam: Dry, Intact, Normal Color, Warm Assessment and Plan - Assessment and Plan (Free Text) Assessment: 82F s/p lap extended right hemicolectomy with primary anastamosis POD4 Plan: HHD onQ removed OnQ removed- dressing applied to insertion site Encourage IS use Ambulation OOBTC Continue to monitor diet tolerance GI/DVT PPX Aggressive PT PT recommends discharge home when cleared medically D/w Dr. Dane Hu, PGY-2
[2018-11-03] MEDS ORDERED: Pantoprazole 40 mg EC Tab PO SCH (07:30)
--- NOTE | 2018-11-03 08:14 | CP.PCM.PN ---
Subjective - Date & Time of Evaluation Date of Evaluation: 11/03/18 Time of Evaluation: 08:13 - Subjective Subjective: General surgery progress note for Dr. Vela-Aurora Hu, PGY-2 Pt seen/examined at bedside with surgical team Pt reports BM this AM, flatus. Tolerating diet. Ambulating. Denies N & V, F & C. Asking to go home. Objective - Vital Signs/Intake and Output Vital Signs (last 24 hours): Temp Pulse Resp BP Pulse Ox 98 F 63 16 151/79 H 95 11/02/18 16:51 11/02/18 18:34 11/02/18 16:51 11/02/18 18:34 11/02/18 16:51 Intake and Output: 11/03/18 11/03/18 06:59 18:59 Intake Total 1020 Balance 1020 - Medications Medications: Current Medications Acetaminophen (Tylenol 325mg Tab) 650 mg PO Q4H PRN PRN Reason: Pain, Mild (1-3) Last Admin: 10/29/18 22:30 Dose: 650 mg Alprazolam (Xanax) 0.25 mg PO BID PRN; Protocol PRN Reason: Anxiety Last Admin: 10/28/18 22:30 Dose: 0.25 mg Amlodipine Besylate (Norvasc) 5 mg PO DAILY [facility]ENDING [facility] TO [facility] Last Admin: 11/02/18 10:33 Dose: 5 mg Atorvastatin Calcium (Lipitor) 40 mg PO DIN [facility]ENDING [facility] TO [facility] Last Admin: 11/02/18 18:34 Dose: 40 mg Benzocaine/Menthol (Cepacol Sore Throat) 1 eddy MT Q2H PRN PRN Reason: Sore Throat Last Admin: 10/31/18 05:16 Dose: 1 eddy Heparin Sodium (Porcine) (Heparin) 5,000 units SC Q8 PENDING S[facility] TO [facility]; Protocol Last Admin: 11/03/18 06:33 Dose: 5,000 units Hydralazine HCl (Apresoline) 10 mg IVP Q6 PRN PRN Reason: SBP above 160,diastolic BP 100 Last Admin: 10/31/18 15:19 Dose: 10 mg Metoprolol Tartrate (Lopressor) 25 mg PO BID [facility]ING [facility] Last Admin: 11/02/18 18:34 Dose: 25 mg Ondansetron HCl (Zofran Inj) 4 mg IVP Q4H PRN PRN Reason: Nausea/Vomiting Last Admin: 10/31/18 17:38 Dose: 4 mg Pantoprazole Sodium (Protonix Ec Tab) 40 mg PO ACB CYNTHIA Last Admin: 11/03/18 06:33 Dose: 40 mg Phenol/Menthol (Phenaseptic 1.4% Throat Kinde) 1 ml MT Q1H PRN PRN Reason: Sore Throat Zolpidem Tartrate (Ambien) 10 mg PO HS PRN; Protocol PRN Reason: Insomnia Stop: 11/07/18 23:59 Last Admin: 11/02/18 21:57 Dose: 10 mg - Labs Labs: 11/02/18 06:20 11/02/18 06:20 PT 13.1 SECONDS (9.4-12.5) H 10/29/18 07:40 INR 1.16 10/29/18 07:40 APTT 34.6 Seconds (26.9-38.3) 10/29/18 07:40 - Constitutional Appears: Non-toxic, No Acute Distress - Head Exam Head Exam: ATRAUMATIC, NORMAL INSPECTION, NORMOCEPHALIC - Eye Exam Eye Exam: EOMI, Normal appearance - ENT Exam ENT Exam: Mucous Membranes Moist, Normal Exam - Neck Exam Neck Exam: Full ROM, Normal Inspection - Respiratory Exam Respiratory Exam: NORMAL BREATHING PATTERN - Cardiovascular Exam Cardiovascular Exam: REGULAR RHYTHM, +S1, +S2 - GI/Abdominal Exam GI & Abdominal Exam: Soft. absent: Distended, Firm, Guarding, Rigid, Tenderness, Rebound Additional comments: Midline incision and laparoscopic incisions with surgical glue in place - Extremities Exam Extremities Exam: Normal Inspection - Neurological Exam Neurological Exam: Alert, Awake, CN II-XII Intact, Oriented x3 - Psychiatric Exam Psychiatric exam: Normal Affect, Normal Mood - Skin Skin Exam: Dry, Intact, Normal Color, Warm Assessment and Plan - Assessment and Plan (Free Text) Assessment: 82F s/p lap extended right hemicolectomy with primary anastamosis POD5 Plan: HHD Encourage IS use Ambulation OOBTC Continue to monitor diet tolerance GI/DVT PPX Aggressive PT Cleared for d/c home from surgical standpoint D/c instructions in summary D/w Dr. Dane Hu, PGY-2
[2018-11-03 08:17] VITALS: BP 145/75; PULSE 60; RESP 18; TEMP 98.3; O2SAT 93
--- NOTE | 2018-11-03 08:20 | CP.PCM.PN ---
Subjective - Date & Time of Evaluation Date of Evaluation: 11/03/18 Time of Evaluation: 06:50 - Subjective Subjective: Sitting side of bed, feels better, putting make up Reason for consultation and follow up: Post op follow up, status post laparoscopic hemicolectomy, history of hyperlipidemia Seen and examined by me and Dr. Sanders Objective - Vital Signs/Intake and Output Vital Signs (last 24 hours): Temp Pulse Resp BP Pulse Ox 98.3 F 60 18 145/75 93 L 11/03/18 08:16 11/03/18 08:16 11/03/18 08:16 11/03/18 08:16 11/03/18 08:16 Intake and Output: 11/03/18 11/03/18 06:59 18:59 Intake Total 1020 Balance 1020 - Medications Medications: Current Medications Acetaminophen (Tylenol 325mg Tab) 650 mg PO Q4H PRN PRN Reason: Pain, Mild (1-3) Last Admin: 10/29/18 22:30 Dose: 650 mg Alprazolam (Xanax) 0.25 mg PO BID PRN; Protocol PRN Reason: Anxiety Last Admin: 10/28/18 22:30 Dose: 0.25 mg Amlodipine Besylate (Norvasc) 5 mg PO DAILY [facility] Last Admin: 11/02/18 10:33 Dose: 5 mg Atorvastatin Calcium (Lipitor) 40 mg PO DIN [facility] Last Admin: 11/02/18 18:34 Dose: 40 mg Benzocaine/Menthol (Cepacol Sore Throat) 1 eddy MT Q2H PRN PRN Reason: Sore Throat Last Admin: 10/31/18 05:16 Dose: 1 eddy Heparin Sodium (Porcine) (Heparin) 5,000 units SC Q8 [facility]; Protocol Last Admin: 11/03/18 06:33 Dose: 5,000 units Hydralazine HCl (Apresoline) 10 mg IVP Q6 PRN PRN Reason: SBP above 160,diastolic BP 100 Last Admin: 10/31/18 15:19 Dose: 10 mg Metoprolol Tartrate (Lopressor) 25 mg PO BID [facility] Last Admin: 11/02/18 18:34 Dose: 25 mg Ondansetron HCl (Zofran Inj) 4 mg IVP Q4H PRN PRN Reason: Nausea/Vomiting Last Admin: 10/31/18 17:38 Dose: 4 mg Pantoprazole Sodium (Protonix Ec Tab) 40 mg PO ACB CYNTHIA Last Admin: 11/03/18 06:33 Dose: 40 mg Phenol/Menthol (Phenaseptic 1.4% Throat Scenic) 1 ml MT Q1H PRN PRN Reason: Sore Throat Zolpidem Tartrate (Ambien) 10 mg PO HS PRN; Protocol PRN Reason: Insomnia Stop: 11/07/18 23:59 Last Admin: 11/02/18 21:57 Dose: 10 mg - Labs Labs: 11/02/18 06:20 11/02/18 06:20 PT 13.1 SECONDS (9.4-12.5) H 10/29/18 07:40 INR 1.16 10/29/18 07:40 APTT 34.6 Seconds (26.9-38.3) 10/29/18 07:40 - Constitutional Appears: Non-toxic, No Acute Distress - Head Exam Head Exam: NORMAL INSPECTION, NORMOCEPHALIC - Eye Exam Eye Exam: Normal appearance Pupil Exam: NORMAL ACCOMODATION - ENT Exam ENT Exam: Mucous Membranes Moist, Normal Exam - Respiratory Exam Respiratory Exam: Decreased Breath Sounds, Clear to Ausculation Bilateral, NORMAL BREATHING PATTERN - Cardiovascular Exam Cardiovascular Exam: +S1, +S2 - GI/Abdominal Exam GI & Abdominal Exam: Soft, Normal Bowel Sounds - Extremities Exam Extremities Exam: Full ROM, Normal Capillary Refill - Neurological Exam Neurological Exam: Alert, Awake, Oriented x3 - Psychiatric Exam Psychiatric exam: Normal Affect, Normal Mood - Skin Skin Exam: Dry, Normal Color, Warm Assessment and Plan - Assessment and Plan (Free Text) Assessment: An 82 year old female who came in to the [facility] due to abdominal pain and diarrhea. Consult was called to for risk stratification and cardiac clearance for abdominal surgery. History of hyperlipidemia and anxiety. Weight loss for the past few months. CT of abdomen showed annular neoplasm in the distal transverse colon/splenic flexure, mass on the lateral segment of the left hepatic lobe. P atient denies chest pain or shortness of breath. EKG-normal sinus rhythm, Chest X ray -normal. No evidence of myocardial ischemia or heart failure. Echo done and showed LVEF 55%, mild MR, moderate TR, moderate pulmonary hypertension. Status post laparoscopic extended left sided hemicolectomy with primary anastomosis and left liver lobe wedge biopsy. Awaiting pathology result. Cardiac status stable. Physical therapy.Discharge planning. Plan: No distress, feels good, wanted to go home Cardiac status stable Heart rate and blood pressure stable Status post left hemicolectomy with liver wedge biopsy Awaiting pathology result On Lopressor 25 mg BID,Lipitor 40 mg daily, Continue antibiotics as ordered Continue current management Discharge planning May discharge from cardiac standpoint Will follow up Plan and treatment discussed with Dr. Sanders
--- NOTE | 2018-11-03 09:11 | PN ---
SUBJECTIVE: The patient was seen and examined at bedside on the general medical [facility]. No acute events overnight. She remains afebrile, hemodynamically stable and is doing well s/p left hemicolectomy. This morning she feels well, offers no complaints and is looking forward to discharge home. OBJECTIVE: VITAL SIGNS: Temperature 98.3, pulse 60, blood pressure 145/75, respiratory rate 18, oxygen saturation 95% on room air. GENERAL: No apparent distress. HEENT: PERRL, EOMI. No scleral icterus. Mild conjunctival pallor is noted. NECK: No JVD. LUNGS: Clear to auscultation. CARDIOVASCULAR: Regular rate and rhythm. Normal S1, S2. No murmurs. ABDOMEN: Normoactive bowel sounds, soft, nontender and nondistended. Surgical site appears clean, dry and intact. EXTREMITIES: No edema. NEUROLOGIC: Awake, alert and oriented x 3. No focal motor deficits. LABORATORY DATA: Morning labs are pending. 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 PLAN: 1. 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 Continue postoperative care as per Dr. Vela and the surgical team. Outpatient follow-up will be arranged with Dr. Barlow for continued care of her newly diagnosed colorectal cancer. 2. Hepatic lesions, likely representing metastatic colorectal cancer. Biopsy results pending. Continue with care as above. 3. Iron-deficiency anemia, likely secondary to metastatic colorectal cancer. Continue to monitor CBC daily. 4. Anxiety disorder. Continue Xanax 0.5 mg p.o. b.i.d. 5. Hyperlipidemia. Continue Lipitor 40 mg p.o. daily. 6. Prophylaxis. Continue Protonix for GI prophylaxis and Heparin for DVT prophylaxis. CODE STATUS: Full code. Charles He MD VON
== END 2018-11-03 08:47 | disposition home health service (06) | DRG 330 ==
LOC: ED 17:29 → ERH 23:26 → 3RSO 10-22 00:43
PROVIDERS: ADMIT Student in an Organized Health Care Education/Training Program; ATTEND Student in an Organized Health Care Education/Training Program
PROC: 30233N1 Transfusion of Nonautologous Red Blood Cells into Peripheral Vein, Percutaneous Approach (ICD-10-PCS; 2018-10-22)
PROC: 0DBL8ZX Excision of Transverse Colon, Via Natural or Artificial Opening Endoscopic, Diagnostic (ICD-10-PCS; 2018-10-26)
PROC: 0FB24ZX Excision of Left Lobe Liver, Percutaneous Endoscopic Approach, Diagnostic (ICD-10-PCS; 2018-10-29)
PROC: 02HV33Z Insertion of Infusion Device into Superior Vena Cava, Percutaneous Approach (ICD-10-PCS; 2018-10-29)
PROC: 3E04305 Introduction of Other Antineoplastic into Central Vein, Percutaneous Approach (ICD-10-PCS; 2018-10-29)
PROC: 0DTG4ZZ Resection of Left Large Intestine, Percutaneous Endoscopic Approach (ICD-10-PCS; principal; 2018-10-29 07:30)
DX: C18.4 Malignant neoplasm of transverse colon (principal); C78.7 Secondary malignant neoplasm of liver and intrahepatic bile duct; K56.609 Unspecified intestinal obstruction, unspecified as to partial versus complete obstruction; R16.0 Hepatomegaly, not elsewhere classified; D50.0 Iron deficiency anemia secondary to blood loss (chronic); F41.9 Anxiety disorder, unspecified; E78.5 Hyperlipidemia, unspecified; R63.4 Abnormal weight loss; K66.0 Peritoneal adhesions (postprocedural) (postinfection); E87.6 Hypokalemia; G47.00 Insomnia, unspecified; I08.1 Rheumatic disorders of both mitral and tricuspid valves; I10 Essential (primary) hypertension; I27.20 Pulmonary hypertension, unspecified; K44.9 Diaphragmatic hernia without obstruction or gangrene; Z79.82 Long term (current) use of aspirin; Z90.49 Acquired absence of other specified parts of digestive tract

== ENCOUNTER 2018-11-13 08:59 | Outpatient (CLI) | payer MEDICARE | END 2018-11-13 09:00 | disposition home or self-care (01) | LOC: PET-BROA 08:59 | DX: C18.4 Malignant neoplasm of transverse colon (principal) ==